=== PATIENT | male | born 1940 | race Caucasian/White ===

== ENCOUNTER 2016-11-23 08:26 | Observation (INO) | payer MEDICARE ==
[2016-11-23] VITALS (11 sets, daily range): BP systolic 157–211; BP diastolic 70–112; PULSE 72–87; RESP 18–20; TEMP 98.3–99; O2SAT 95–97
[~2016-11-23] VITALS: Ht 182.9 cm; Wt 96.0 kg
[2016-11-23] MEDS ORDERED: SODIUM CHLORIDE 0.9% FLUSH 10 ML FLUSH IVF PRN (08:45)
[2016-11-23 09:10] LABS: AUTOMATED NEUTROPHIL # 5.4 TH/MM3 (1.8-7.7); BASOPHIL % 0.5 % (0.0-2.0); EOSINOPHIL % 0.7 % (0.0-4.0); HEMATOCRIT 26.3 % (39.0-51.0); LYMPH % 12.5 % (9.0-44.0); LYMPHOCYTE # 0.8 TH/MM3 (1.0-4.8); MEAN CORPUSCULAR HEMOGLOBIN 30.3 PG (27.0-34.0); MEAN CORPUSCULAR HGB CONC 32.6 % (32.0-36.0); NEUT % 80.3 % (16.0-70.0); PLATELET COUNT 99 TH/MM3 (150-450); RED BLOOD COUNT 2.82 MIL/MM3 (4.50-5.90); RED CELL DISTRIBUTION WIDTH 14.2 % (11.6-17.2); WHITE BLOOD COUNT 6.7 TH/MM3 (4.0-11.0)
[2016-11-23 09:26] LABS: HEMO FLAGS AUTO DIFF
[2016-11-23] MEDS ORDERED: NEUR100C PO (09:29)
[2016-11-23] MEDS ORDERED: GLIM1TAB PO (09:29)
[2016-11-23] MEDS ORDERED: CARV25TA PO (09:29)
[2016-11-23] MEDS ORDERED: CALC0.5C6 PO (09:29)
[2016-11-23] MEDS ORDERED: NEUR300C PO (09:29)
[2016-11-23] MEDS ORDERED: FLUD.1 PO (09:29)
[2016-11-23] MEDS ORDERED: DOXA1TAB34 PO (09:29)
[2016-11-23] MEDS ORDERED: TORS10TA2 PO (09:29)
[2016-11-23] MEDS ORDERED: HYDR-3801 PO (09:29)
[2016-11-23 09:35] LABS: BICARBONATE 17.6 MEQ/L (21.0-32.0); MAGNESIUM 2.4 MG/DL (1.5-2.5); POTASSIUM 5.6 MEQ/L (3.5-5.1)
[2016-11-23 09:46] LABS: BANDS 2 % (0-6); EOSINOPHILS 1 % (0-4); METAMYELOCYTES 1 % (0-1); MYELOCYTES 1 % (0-0); POLYS (SEG NEUTROPHILS) 71 % (16-70); WBC DIFF SAMPLE 100
[2016-11-23 09:47] LABS: PLATELET ESTIMATE SMEAR LOW (NORMAL); PLATELET MORPHOLOGY NORMAL (NORMAL); SCAN/DIFF FINAL DIFF MANUAL
--- NOTE | 2016-11-23 10:00 | PD ---
HPI Chief Complaint: Altered Mental Status Time Seen by Provider: 08:33 Travel History International Travel<30 days: No Contact w/Intl Traveler<30days: No Traveled to known affect area: No History of Present Illness HPI 76-year-old male arrives to the ED due to unresponsive state this morning. His family found him unresponsive in bed. He was breathing on his own however did not arouse to physical stimulus. EMS reports the patient's blood glucose was 36 on scene. He received 25 mg of D50 and he improved. Upon arrival to the ER the GCS was 15. Patient did have a tremor in the right arm. He had no specific medical complaint. The family arrives later and reported that the patient attended a wedding last night and ate plenty of food. Evidently he did not take any medication prior to going to sleep. He does report a history of chronic renal insufficiency and believes his creatinine transplant between 7 and 8. He also has familiar with a history of anemia having been on Procrit and states his hemoglobin is typically between 8-9. No chest pain nausea or vomiting reported. No shortness of breath. [facility]LY [facility] Social History Tobacco Use: No (quite 40 years ago) Allergies-Medications (Allergen,Severity, Reaction): Coded Allergies: No Known Allergies (Unverified , 11/23/16) Reported Meds & Prescriptions Reported Meds & Active Scripts Active Reported Fludrocortisone (Fludrocortisone Acetate) 0.1 Mg Tab 0.1 Mg PO DAILY Hydralazine (Hydralazine HCl) 100 Mg Tab 100 Mg PO BID Take with meals Doxazosin (Doxazosin Mesylate) 4 Mg Tab 4 Mg PO DAILY Carvedilol 25 Mg Tab 25 Mg PO BID Calcitriol 0.5 Mcg Cap 0.5 Mcg PO DAILY Torsemide 10 Mg Tab 10 Mg PO DAILY Neurontin (Gabapentin) 300 Mg Cap 300 Mg PO TID Neurontin (Gabapentin) 100 Mg Cap 100 Mg PO TID Glimepiride 1 Mg Tab 1 Mg PO DAILY Take with breakfast or first main meal Review of Systems Except as stated in HPI: all other systems reviewed are Neg General / Constitutional: No: Fever, Chills Physical Exam Narrative GENERAL: 76-year-old male well-nourished moderate distress SKIN: Focused skin assessment warm/dry. HEAD: Atraumatic. Normocephalic. EYES: Pupils equal and round. No scleral icterus. No injection or drainage. ENT: No nasal bleeding or discharge. Mucous membranes pink and moist. NECK: Trachea midline. No JVD. CARDIOVASCULAR: Regular rate and rhythm. No murmur appreciated. RESPIRATORY: No accessory muscle use. Clear to auscultation. Breath sounds equal bilaterally. GASTROINTESTINAL: Abdomen soft, non-tender, nondistended. Hepatic and splenic margins not palpable. MUSCULOSKELETAL: No obvious deformities. No clubbing. No cyanosis. No edema. NEUROLOGICAL: Awake and alert. Tremor in the right upper extremity. Cranial nerves are normal. Patient has equal strength throughout. Speech memory mentation intact. PSYCHIATRIC: Appropriate mood and affect; insight and judgment normal. Data Data Last Documented VS Vital Signs Date Time Temp Pulse Resp B/P Pulse Ox O2 Delivery O2 Flow Rate FiO2 11/23/16 08:41 96 11/23/16 08:30 98.3 80 18 191/85 Vital signs reviewed Orders Electrocardiogram (11/23/16 08:33) Complete Blood Count With Diff (11/23/16 08:33) Magnesium (Mg) (11/23/16 08:33) Blood Glucose (11/23/16 09:00) Blood Glucose (11/23/16 09:30) Blood Glucose (11/23/16 08:33) Ecg Monitoring (11/23/16 08:33) Iv Access Insert/Monitor (11/23/16 08:33) Oximetry (11/23/16 08:33) NPO (11/23/16 08:33) Sodium Chloride 0.9% Flush (Ns Flush) (11/23/16 08:45) Troponin I (11/23/16 08:33) Basic Metabolic Panel (Bmp) (11/23/16 08:33) Calcium Gluconate Inj (Calcium Gluconate (11/23/16 10:15) Sodium Bicarbonate 8.4% Inj (Sodium Bica (11/23/16 10:15) Sodium Polysty Sulfate Liq (Kayexalate L (11/23/16 10:15) Labs Laboratory Tests Test 11/23/16 08:50 White Blood Count 6.7 TH/MM3 Red Blood Count 2.82 MIL/MM3 Hemoglobin 8.6 GM/DL Hematocrit 26.3 % Mean Corpuscular Volume 93.0 FL Mean Corpuscular Hemoglobin 30.3 PG Mean Corpuscular Hemoglobin 32.6 % Concent Red Cell Distribution Width 14.2 % Platelet Count 99 TH/MM3 Mean Platelet Volume 7.7 FL Neutrophils (%) (Auto) 80.3 % Lymphocytes (%) (Auto) 12.5 % Monocytes (%) (Auto) 6.0 % Eosinophils (%) (Auto) 0.7 % Basophils (%) (Auto) 0.5 % Neutrophils # (Auto) 5.4 TH/MM3 Lymphocytes # (Auto) 0.8 TH/MM3 Monocytes # (Auto) 0.4 TH/MM3 Eosinophils # (Auto) 0.0 TH/MM3 Basophils # (Auto) 0.0 TH/MM3 CBC Comment AUTO DIFF Differential Total Cells 100 Counted Neutrophils % (Manual) 71 % Band Neutrophils % 2 % Lymphocytes % 17 % Monocytes % 7 % Eosinophils % 1 % Neutrophils # (Manual) 5.0 TH/MM3 Metamyelocytes 1 % Myelocytes 1 % Differential Comment FINAL DIFF MANUAL Platelet Estimate LOW Platelet Morphology Comment NORMAL Red Cell Morphology Comment NORMAL Sodium Level 145 MEQ/L Potassium Level 5.6 MEQ/L Chloride Level 115 MEQ/L Carbon Dioxide Level 17.6 MEQ/L Anion Gap 12 MEQ/L Blood Urea Nitrogen 97 MG/DL Creatinine 9.71 MG/DL Estimat Glomerular Filtration 5 ML/MIN Rate Random Glucose 98 MG/DL Calcium Level 8.4 MG/DL Magnesium Level 2.4 MG/DL Troponin I 0.03 NG/ML [facility] Medical Decision Making Medical Screen Exam Complete: Yes Emergency Medical Condition: Yes Medical Record Reviewed: Yes Differential Diagnosis Anemia, renal failure, arrhythmia, some pulmonary overdose, hypoglycemia, seizure Narrative Course CBC & BMP Diagram 11/23/16 08:50 EKG shows sinus rate of 80 left axis deviation normal intervals, no hyperkalemic EKG change The patient has a history of renal disease and follows with Dr. Corbin of nephrology. He has never undergone dialysis. Evidently his urination has been normal. Plan patient will be admitted for cardiopulmonary monitoring as well as blood sugar monitoring. He was treated for hyperkalemia with calcium bicarbonate and Kayexalate. Discussed with Dr. Walker from the family medicine residency. Diagnosis Primary Impression: Unresponsive Additional Impressions: Hypoglycemia Hyperkalemia Admitting Information Admitting Physician Requests: Admit Sunil Linton MD Nov 23, 2016 10:00
[2016-11-23] MEDS ORDERED: SODIUM POLYSTYRENE SULFONATE SUSP 15 GM/60 ML CUP PO ONE (10:15)
[2016-11-23] MEDS ORDERED: CALCIUM GLUCONATE 10% 1 GM/10 ML VIAL SLOW IVP ONE (10:15)
[2016-11-23] MEDS ORDERED: SODIUM BICARBONATE 8.4% SOLN 50 MEQ/50 ML VIAL SLOW IVP ONE (10:15)
[2016-11-23] MEDS ORDERED: CARVEDILOL 12.5 MG TAB PO ONE (11:15)
[2016-11-23] MEDS ORDERED: hydrALAZINE HCL 100 MG TAB PO ONE (11:15)
--- NOTE | 2016-11-23 11:32 | HHI.HP ---
[facility] Service Family Medicine Primary Care Physician Randolph Renee M.D. 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 At 0730 today, neighbor came to check on him and found him lying in bed unable to wake up. He had gone to bed at 2200 the night before and felt normal, asymptomatic. No lightheadedness. No CP, SOB. He does note since this AM he has had increased urinary hesitancy but this was not a problem yesterday. On transport from via [facility], he was found to have blood sugar of 37. He became more responsive in transit and was given orange juice. BSG in ER was 100. There have been no recent changes to his medicines and he did not take any more than usual. He takes a sulfonylurea for DM but he actually took less than normal yesterday. He ate his normal amount. He was at a wedding the evening before this event and drank 3 glasses of wine (normal for him is 3 drinks per week). His only concern now that he is awake is feeling tremulous and diffusely weak. Denies any focal weakness. (Ricardo Sterling MD R1) Review of Systems Constitutional: DENIES: Fever, Chills Endocrine: DENIES: Polyuria Eyes: DENIES: Blurred vision Ears, nose, mouth, throat: DENIES: Hearing loss Respiratory: DENIES: Cough, Wheezing, Shortness of breath Cardiovascular: COMPLAINS OF: Lower Extremity Edema, DENIES: Chest pain, Palpitations, Syncope Gastrointestinal: DENIES: Abdominal pain, Constipation, Nausea, Vomiting Genitourinary: DENIES: Urinary incontinence Musculoskeletal: DENIES: Muscle aches Integumentary: DENIES: Rash Hematologic/lymphatic: DENIES: Bruising Neurologic: COMPLAINS OF: Tremor, DENIES: Headache, Localized weakness, Paresthesias, Seizures, Speech Problems (Ricardo Sterling MD R1) Past Family Social History Past Medical History Prostate DM CKD - Dr. Corbin HTN Past Surgical History TURP 2005 TURP 2013- Fistula 2016 Waiting for kidney transplant Reported Medications Reported Meds & Active Scripts Active Reported Fludrocortisone (Fludrocortisone Acetate) 0.1 Mg Tab 0.1 Mg PO DAILY Hydralazine (Hydralazine HCl) 100 Mg Tab 100 Mg PO BID Take with meals Doxazosin (Doxazosin Mesylate) 4 Mg Tab 4 Mg PO DAILY Carvedilol 25 Mg Tab 25 Mg PO BID Calcitriol 0.5 Mcg Cap 0.5 Mcg PO DAILY Torsemide 10 Mg Tab 10 Mg PO DAILY Neurontin (Gabapentin) 300 Mg Cap 300 Mg PO TID Neurontin (Gabapentin) 100 Mg Cap 100 Mg PO TID Glimepiride 1 Mg Tab 1 Mg PO DAILY Take with breakfast or first main meal (Ricardo Sterling MD R1) Allergies: Coded Allergies: No Known Allergies (Unverified , 11/23/16) Active Ordered Medications Current Medications Medications (Trade) Dose Ordered Sig/Sandhya Route Start Time Stop Time Status Last Admin (NS Flush) 2 ml UNSCH PRN IV FLUSH 11/23/16 12:00 (NS Flush) 2 ml BID IV FLUSH 11/23/16 21:00 (Ambien) 5 mg HS PRN PO 11/23/16 12:00 (Lovenox Inj) 30 mg Q24H SQ 11/23/16 12:00 (Tylenol) 650 mg Q6H PRN PO 11/23/16 12:00 (Rocaltrol) 0.5 mcg DAILY PO 11/24/16 09:00 (Coreg) 25 mg BID PO 11/23/16 21:00 (Cardura) 4 mg DAILY PO 11/24/16 09:00 (Florinef) 0.1 mg DAILY PO 11/24/16 09:00 (Neurontin) 100 mg TID PO 11/23/16 13:00 (Neurontin) 300 mg TID PO 11/23/16 13:00 (Apresoline) 100 mg BID PO 11/23/16 21:00 (Demadex) 10 mg DAILY PO 11/24/16 09:00 Family History Father: of laryngeal Mother: was healthy Social History Tobacco: quit 40 years ago, smoked from 18 to 36, 1PPD Alcohol: 2 shots of scotch couple beers per week Drugs: None (Ricardo Sterling MD R1) Physical Exam Vital Signs Vital Signs Date Time Temp Pulse Resp B/P Pulse Ox O2 Delivery O2 Flow Rate FiO2 11/23/16 08:41 96 11/23/16 08:30 98.3 80 18 191/85 95 Physical Exam GENERAL: WDWN adult white male sitting up in bed tremulous but in NAD SKIN: No rashes, ecchymoses or lesions. Cool and dry. HEAD: NC/AT EYES: PERRL. EOMI. No conjunctival injection or drainage. ENT: MMM, OP without erythema, tonsillar swelling, or exudate. NECK: Supple, no lymphadenopathy. No JVD. CARDIOVASCULAR: NRRR. Normal S1/S2. No MRG RESPIRATORY: CTAB. No crackles or wheezes. GASTROINTESTINAL: Abdomen soft, non-distended, non-tender. No hepato- splenomegaly or palpable masses. MUSCULOSKELETAL: Extremities without clubbing, cyanosis, or edema. NEUROLOGICAL: Awake and alert, oriented x3. Cranial nerves II through XII grossly intact. Strength 5/5 BUE (biceps/triceps), 4/5 in BLE (foot plantar/ dorsiflexion). Sensation to light touch intact throughout. Normal speech. Repetition intact. Laboratory Laboratory Tests Test 11/23/16 08:50 White Blood Count 6.7 Red Blood Count 2.82 Hemoglobin 8.6 Hematocrit 26.3 Mean Corpuscular Volume 93.0 Mean Corpuscular Hemoglobin 30.3 Mean Corpuscular Hemoglobin 32.6 Concent Red Cell Distribution Width 14.2 Platelet Count 99 Mean Platelet Volume 7.7 Neutrophils (%) (Auto) 80.3 Lymphocytes (%) (Auto) 12.5 Monocytes (%) (Auto) 6.0 Eosinophils (%) (Auto) 0.7 Basophils (%) (Auto) 0.5 Neutrophils # (Auto) 5.4 Lymphocytes # (Auto) 0.8 Monocytes # (Auto) 0.4 Eosinophils # (Auto) 0.0 Basophils # (Auto) 0.0 CBC Comment AUTO DIFF Differential Total Cells 100 Counted Neutrophils % (Manual) 71 Band Neutrophils % 2 Lymphocytes % 17 Monocytes % 7 Eosinophils % 1 Neutrophils # (Manual) 5.0 Metamyelocytes 1 Myelocytes 1 Differential Comment FINAL DIFF MANUAL Platelet Estimate LOW Platelet Morphology Comment NORMAL Red Cell Morphology Comment NORMAL Sodium Level 145 Potassium Level 5.6 Chloride Level 115 Carbon Dioxide Level 17.6 Anion Gap 12 Blood Urea Nitrogen 97 Creatinine 9.71 Estimat Glomerular Filtration 5 Rate Random Glucose 98 Calcium Level 8.4 Magnesium Level 2.4 Troponin I 0.03 (Ricardo Sterling MD R1) Result Diagram: 11/23/16 0850 11/23/16 0850 Assessment and Plan Assessment and Plan 76 yo male with h/o 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 I agree with assessment and management as documented and discussed with me. Grabiel Matthews is a gentleman with a complicated medical history including DM II and CKD not on dialysis admitted under observation for an episode of being found unresponsive. [facility] was called and he was found to have hypoglycemia. He reports that the day prior to admission, he ate eggs and one piece of toast for breakfast and then chicken, beef, 3 glasses of wine, and a small piece of cake at a wedding at night. Since receiving OJ and glucose recovering to normal, he reports feeling a bit better but still weak. Acute on chronic kidney disease: pt with baseline creatinine ~7.5. Will provide gentle IV hydration and monitor Is/Os closely. (Nara vEangelista MD) Problem List: (1) Unresponsive Status: Resolved Plan: Found unresponsive with blood glucose 37. By history did not eat much yesterday apart from cake and wine a wedding. Recovered after oral glucose administration. BSG on re-check ~100. No signs of syncope, cardiac etiology, neurologic etiology. K 5.6, given kayexelate Bicarb 14.7, anion gap 12; given 50 mEq NaHCO3 Initial EKG with artifact from tremulousness; NSR, normal rate, no ST-T wave changes, no changes suggestive of severe hyperkalemia Echo done Sep 2015 showed EF 57%, no significant valvular dysfunction (from [facility] , daughter brought report) - Hold home sulfonylurea - Accu-checks Q4H while awake to ensure stable blood glucose - Repeat BMP at 1700 - Based on accu-checks, will order SSI to cover (likely will need low-dose since insulin-naive) - Cardiac telemetry - If SOB occurs, will consider Echo, CXR - Diabetic education - Diabetic diet (2) Hypoglycemia Status: Resolved Plan: BSG 37, corrected to > 100 after oral glucose, likely due to low PO intake day before admission - Accu-checks Q4H until BSG stable - If needed will add SSI to cover (would need low dose) - Diabetic diet - Diabetes education (3) Hyperkalemia Status: Acute Plan: K 5.6 on admission in patient with CKD - S/p kayexelate, Ca gluconate - F/u repeat BMP at 1700 - Telemetry - Continue home diuretic (4) Acidosis, metabolic Status: Acute Plan: Likely due to renal disease, possibly hypoglycemia causing formation of ketones; not in DKA. No reason to suspect infection or lactic acidosis. - S/p 50 mEq bicarb - Repeat BMP at 1700 (5) Essential hypertension Status: Chronic Plan: BP at home runs 140-150/80-90 per patient. In ER BP significantly elevated (180-210/90-110). No signs of hypertensive emergency at this point. Likely elevated due to not taking BP meds this AM. - Given 12.5 mg Coreg (1/2 home dose) and 100 mg hydralazine PO, BP decreased somewhat 180/100 - Resumed home BP meds (Coreg, hydralazine, Prazosin) - Clonidine 0.1 mg PO Q6H PRN BP > 200/100 - Follow BP and adjust as needed (6) Type 2 diabetes mellitus Status: Chronic Plan: See above management for Unresponsive and Hypoglycemia - Continue home gabapentin for neuropathy (7) BPH (benign prostatic hyperplasia) Status: Chronic Plan: Having some urinary retention today - Continue home prazosin - Bladder scan post-void; if > [address] Vargas (8) CKD (chronic kidney disease) Status: Chronic Plan: Cr 9.71, per patient runs around 7 but sometimes higher. Equipment Tester Dr. Corbin. Currently has fistula placed L arm but not receiving dialysis. - Manage electrolytes as above - Consider nephrology consult if electrolyte abnormalities worsen - Continue home diuretic (9) FEN/PPX Status: Acute Plan: Fluids: NS @50 cc/hr x1 L Elecs: See above; monitor and adjust as needed Nutrition: Diabetic diet 2200 ADA DVT: Lovenox 30 mg SQ daily dw Dr. Walker, Dr. Evangelista (Ricardo Sterling MD R1) Problem Qualifiers (1) Type 2 diabetes mellitus: Qualified Code: E11.42 - Type 2 diabetes mellitus with diabetic polyneuropathy , without long-term current use of insulin (2) BPH (benign prostatic hyperplasia): Qualified Code: N40.1 - Benign non-nodular prostatic hyperplasia with lower urinary tract symptoms (3) CKD (chronic kidney disease): Qualified Code: N18.9 - CKD (chronic kidney disease), unspecified stage Ricardo Sterling MD R1 Nov 23, 2016 11:32 Nara Evangelista MD Nov 23, 2016 19:56
[2016-11-23] MEDS ORDERED: ZOLPIDEM TARTRATE 5 MG TAB PO PRN (12:00)
[2016-11-23] MEDS: ENOXAPARIN SODIUM 30 MG/0.3 ML SYRINGE SQ SCH (12:00)
[2016-11-23] MEDS ORDERED: ACETAMINOPHEN 325 MG TAB PO PRN (12:00)
[2016-11-23] MEDS ORDERED: SODIUM CHLORIDE 0.9% FLUSH 10 ML FLUSH IV FLUSH PRN (12:00)
[2016-11-23] MEDS: GABAPENTIN 100 MG CAP PO SCH ×2 (13:00→18:24)
[2016-11-23] MEDS: GABAPENTIN 300 MG CAP PO SCH ×2 (13:00→18:24)
[2016-11-23] MEDS ORDERED: SODIUM CHLOR 0.9% 1000 ML INJ 1,000 ML IV ONE (14:15)
[2016-11-23] MEDS ORDERED: cloNIDine HCL 0.1 MG TAB PO PRN (14:30)
[2016-11-23 19:19] LABS: BICARBONATE 18.9 MEQ/L (21.0-32.0); POTASSIUM 4.9 MEQ/L (3.5-5.1)
[2016-11-23] MEDS: SODIUM CHLORIDE 0.9% FLUSH 10 ML FLUSH IV FLUSH SCH (20:18)
[2016-11-23] MEDS: hydrALAZINE HCL 100 MG TAB PO SCH (20:19)
[2016-11-23] MEDS: CARVEDILOL 12.5 MG TAB PO SCH (20:19)
[2016-11-24 00:43] VITALS: BP 168/80; PULSE 76; RESP 18; TEMP 98.2; O2SAT 95
[2016-11-24 05:10] VITALS: BP 166/74; PULSE 65; RESP 18; TEMP 97.3; O2SAT 95
[2016-11-24 08:15] VITALS: BP 165/90; PULSE 70; RESP 19; TEMP 96.5; TEMP 96.7; O2SAT 97
[2016-11-24] MEDS ORDERED: DOXAZOSIN MESYLATE 4 MG TAB PO SCH (09:00)
[2016-11-24] MEDS ORDERED: FLUDROCORTISONE ACETATE 0.1 MG TAB PO SCH (09:00)
[2016-11-24] MEDS ORDERED: CALCITRIOL 0.25 MCG CAP PO SCH (09:00)
[2016-11-24] MEDS ORDERED: TORSEMIDE 5 MG TAB PO SCH (09:00)
[2016-11-24] MEDS: GABAPENTIN 100 MG CAP PO SCH ×2 (09:06→13:30)
[2016-11-24] MEDS: GABAPENTIN 300 MG CAP PO SCH ×2 (09:07→13:30)
[2016-11-24] MEDS: CARVEDILOL 12.5 MG TAB PO SCH (09:08)
[2016-11-24] MEDS: hydrALAZINE HCL 100 MG TAB PO SCH (09:08)
[2016-11-24] MEDS: SODIUM CHLORIDE 0.9% FLUSH 10 ML FLUSH IV FLUSH SCH (09:09)
[2016-11-24 10:23] LABS: BICARBONATE 18.6 MEQ/L (21.0-32.0); POTASSIUM 4.9 MEQ/L (3.5-5.1)
--- NOTE | 2016-11-24 11:55 | EKG ---
Date Performed: 11/23/2016 Time Performed: 09:23:35 PTAGE: 76 years EKG: Sinus rhythm MARKED LEFT AXIS DEVIATION ABNORMAL ECG NO PREVIOUS TRACING DOCTOR: Federico Rust Interpretating Date/Time 11/24/2016 11:47:25
--- NOTE | 2016-11-24 12:30 | HHI.DCPOC ---
Discharge Care Plan Diagnosis: (1) Hypoglycemia (2) Acidosis, metabolic (3) CKD (chronic kidney disease) (4) Type 2 diabetes mellitus (5) Essential hypertension (6) BPH (benign prostatic hyperplasia) Goals to Promote Your Health * To prevent worsening of your condition and complications * To maintain your health at the optimal level Directions to Meet Your Goals Take your medications as prescribed Follow your dietary instruction Follow activity as directed Keep your appointments as scheduled Take your immunizations and boosters as scheduled If your symptoms worsen call your PCP, if no PCP go to Urgent Care Center or Emergency Room Smoking is Dangerous to Your Health. Avoid second hand smoke Call the 24-hour hour crisis hotline for domestic abuse at Ricardo Sterling MD R1 Nov 24, 2016 12:30 pm
[2016-11-24 12:54] VITALS: BP 147/69; PULSE 66; RESP 18; TEMP 96.9
[2016-11-24] MEDS: ENOXAPARIN SODIUM 30 MG/0.3 ML SYRINGE SQ SCH (13:30)
--- NOTE | 2016-11-24 14:26 | HHI.FPPN ---
Subjective Remarks No acute events overnight. Feeling back to normal with no shaking or weakness. No CP/SOB. (Ricardo Sterling MD R1) Objective Vitals Vital Signs Date Time Temp Pulse Resp B/P Pulse Ox O2 Delivery O2 Flow Rate FiO2 11/24/16 12:54 96.9 66 18 147/69 11/24/16 08:15 96.7 70 19 165/90 97 11/24/16 05:10 97.3 65 18 166/74 95 11/24/16 00:43 98.2 76 18 168/80 95 11/23/16 21:06 98.4 72 18 157/71 97 11/23/16 19:29 79 11/23/16 16:51 99.0 87 20 188/87 95 11/23/16 16:21 80 18 182/84 11/23/16 14:45 77 18 185/70 I/O 11/23/16 11/23/16 11/23/16 11/24/16 11/24/16 11/24/16 07:00 15:00 23:00 07:00 15:00 23:00 Output Total 450 ml Balance -450 ml Output Urine Total 450 ml # Voids 2 5 # Bowel Movements 0 (Ricardo Sterling MD R1) Result Diagram: 11/23/16 0850 11/24/16 0827 Objective Remarks GENERAL: WDWN adult white male sitting up in bed in NAD CARDIOVASCULAR: NRRR. Normal S1/S2. No MRG RESPIRATORY: CTAB. No crackles or wheezes. GASTROINTESTINAL: Abdomen soft, non-distended, non-tender. No hepato- splenomegaly or palpable masses. MUSCULOSKELETAL: Extremities without clubbing, cyanosis, or edema. NEUROLOGICAL: Awake and alert, oriented x3. Cranial nerves II through XII grossly intact. Normal speech. 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 I agree with assessment and management as documented and discussed with me. Pt reports he is feeling well. RN daughter at bedside. Pt has worked with PT and is stable. Discharge home today. Pt instructed to d/c home sulfonylurea and monitor glucose without medication. Case discussed with his frame table operator, who advises for discharge with outpatient nephro follow up. (Nara Evangelista MD) Problem List: (1) Unresponsive Status: Resolved Plan: Found unresponsive with blood glucose 37. By history did not eat much yesterday apart from cake and wine a wedding. Recovered after oral glucose administration. BSG on re-check ~100. No signs of syncope, cardiac etiology, neurologic etiology. K 5.6, given kayexelate Bicarb 14.7, anion gap 12; given 50 mEq NaHCO3 Initial EKG with artifact from tremulousness; NSR, normal rate, no ST-T wave changes, no changes suggestive of severe hyperkalemia Echo done Sep 2015 showed EF 57%, no significant valvular dysfunction (from [facility] , daughter brought report) - D/C sulfonylurea - Hypokalemia resolved s/p Kayexalate - Diabetic diet - F/u with PCP (2) Hypoglycemia Status: Resolved Plan: BSG 37, corrected to > 100 after oral glucose, likely due to low PO intake day before admission. BSG overnight 126-210. - Discontinue sulfonylurea on discharge - Diabetic diet - F/u with PCP (3) Hyperkalemia Status: Resolved Plan: K 5.6 on admission in patient with CKD, decreased to 4.9 s/p Kayexelate - F/u with PCP, Nephrology (4) Acidosis, metabolic Status: Chronic Plan: Likely chronic due to renal disease, possibly hypoglycemia causing formation of ketones; not in DKA. No reason to suspect infection or lactic acidosis. - Discussed with patient's outpatient frame table operator, no need for acute dialysis or further inpatient treatment of renal disease - F/u with nephrology outpatient (5) Essential hypertension Status: Chronic Plan: BP initially elevated to 180s, decreased to 150 this AM (patient's baseline) - Continue home meds, f/u with PCP (6) Type 2 diabetes mellitus Status: Chronic Plan: See above management for Unresponsive and Hypoglycemia - Continue home gabapentin for neuropathy (7) BPH (benign prostatic hyperplasia) Status: Chronic Plan: Stable - Continue home prazosin (8) CKD (chronic kidney disease) Status: Chronic Plan: Cr 9.71, per patient and outpatient frame table operator this is near his baseline. Currently has fistula placed L arm but not receiving dialysis. - F/u with outpatient frame table operator (already established, see comments above) sdw Dr. Evangelista, Dr. Walker (Ricardo Sterling MD R1) Problem Qualifiers (1) Type 2 diabetes mellitus: Qualified Code: E11.42 - Type 2 diabetes mellitus with diabetic polyneuropathy , without long-term current use of insulin (2) BPH (benign prostatic hyperplasia): Qualified Code: N40.1 - Benign non-nodular prostatic hyperplasia with lower urinary tract symptoms (3) CKD (chronic kidney disease): Qualified Code: N18.9 - CKD (chronic kidney disease), unspecified stage Ricardo Sterling MD R1 Nov 24, 2016 14:26 Nara Evangelista MD Nov 24, 2016 20:12
== END 2016-11-24 13:51 | disposition home or self-care (01) ==
LOC: NEPE 08:26 → NEDA 11:01 → INTOOBSV 11:01 → NEPGCP 16:47 → N05A 22:41
PROVIDERS: ADMIT Family Medicine; ATTEND Family Medicine
DX: E11.649 Type 2 diabetes mellitus with hypoglycemia without coma (principal); R25.1 Tremor, unspecified; N18.6 End stage renal disease; D64.9 Anemia, unspecified; Z79.899 Other long term (current) drug therapy; Z79.84 Long term (current) use of oral hypoglycemic drugs; E87.5 Hyperkalemia; I12.0 Hypertensive chronic kidney disease with stage 5 chronic kidney disease or end stage renal disease; R39.11 Hesitancy of micturition; Z76.82 Awaiting organ transplant status; R33.9 Retention of urine, unspecified; E11.42 Type 2 diabetes mellitus with diabetic polyneuropathy; N40.1 Benign prostatic hyperplasia with lower urinary tract symptoms; R94.31 Abnormal electrocardiogram [ECG] [EKG]
CPT/HCPCS: 80048; 82948; 83735; 84484; 85007; 85027; 93005; 96374; 96375; 97162; 99285; G0378; G8987; G8988; J0610; J1650; J7030

== ENCOUNTER 2018-02-17 00:24 | Inpatient (IN) ==
[2018-02-17] MEDS ORDERED: Temazepam 15 MG Capsule PO PRN (01:28)
[2018-02-17] MEDS ORDERED: Bisacodyl 10 MG Supp RECTAL PRN (01:28)
[2018-02-17] MEDS ORDERED: Dextrose 50% in Water 50 ML Vial IV.PUSH PRN ×2 (01:31→16:02)
[2018-02-17 03:14] LABS: Eos % (Auto) 0.7 % (0.0-4.0); Hematocrit 28.7 % (39.0-51.0); Hemoglobin 9.9 gm/dL (13.0-17.0); Lymph # (Auto) 1.2 th/mm3 (1.0-4.8); Lymph % (Auto) 30.8 % (9.0-44.0); Mean Corpuscular HGB Conc 34.4 % (32.0-36.0); Mean Corpuscular Hemoglobin 32.1 pg (27.0-34.0); Mean Corpuscular Volume 93.4 fL (80.0-100.0); Mean Platelet Volume 8.2 fL (7.0-11.0); Mono # (Auto) 0.3 th/mm3 (0.0-0.9); Mono % (Auto) 7.1 % (0.0-8.0); Neut # (Auto) 2.3 th/mm3 (1.8-7.7); Neut % (Auto) 60.4 % (16.0-70.0); Platelet Count 96 th/mm3 (150-450); Red Blood Count 3.08 mil/mm3 (4.50-5.90); Red Cell Distribution Width 13.7 % (11.6-17.2); White Blood Count 3.8 th/mm3 (4.0-11.0)
[2018-02-17 03:29] LABS: Activated Partial Thrombo Time 26.7 sec (24.3-30.1); INR 1.1 Ratio; Prothrombin Time 10.9 sec (9.8-11.6)
[2018-02-17] MEDS ORDERED: Chlorhexidine Gluconate 2% 1 Pack (2 Cloths) TOPICAL SCH (03:30)
[2018-02-17] MEDS ORDERED: Metoprolol Tartrate 25 MG Tablet PO SCH (03:30)
[2018-02-17 03:36] LABS: Alanine Aminotransferase 23 U/L (12-78); Anion Gap 8 meq/L (5-15); Aspartate Aminotransferase 9 U/L (15-37); Blood Urea Nitrogen 34 mg/dL (7-18); Calcium 8.3 mg/dL (8.5-10.1); Carbon Dioxide 32.6 meq/L (21.0-32.0); Chloride 101 meq/L (98-107); Glomerular Filtration Rate 11 mL/min (>89); Glucose,Random 93 mg/dL (74-106); Potassium 5.1 meq/L (3.5-5.1); Sodium 142 meq/L (136-145)
[2018-02-17 03:37] LABS: Alkaline Phosphatase 58 U/L (45-117); Total Protein 7.1 g/dL (6.4-8.2)
[2018-02-17] MEDS ORDERED: ANTITHYMOCYTE IG IV.SIG PRN (03:38)
[2018-02-17] MEDS ORDERED: SODIUM CHLOR 0.9% IV.SIG PRN (03:38)
[2018-02-17] MEDS ORDERED: [UNRECOGNIZED DRUG - OTHER] IV.PUSH PRN (03:41)
[2018-02-17] MEDS ORDERED: ceFAZolin 2 GM IV; once IV.SIG PRN (03:42)
[2018-02-17] MEDS ORDERED: Sodium Chlor 0.9% Inj 500 ML IV.SIG SCH (04:00)
[2018-02-17 04:07] LABS: Platelet Morphology Normal (Normal)
[2018-02-17 04:27] LABS: Bilirubin,Urine Negative (Negative); Clarity,Urine Clear (Clear); Color,Urine Straw (Yellw/Straw); Glucose,Urine (UA) 500 or Greater mg/dL (Negative); Leukocyte Esterase,Urine Negative (Negative); Mucus,Urine Few /lpf (Occasional); Nitrite,Urine Negative (Negative); Specific Gravity,Urine 1.002 (1.002-1.035)
[2018-02-17] MEDS ORDERED: Heparin - SQ 10,000 UNITS/ML Vial SQ ONE ×2 (07:26→08:27)
[2018-02-17] MEDS ORDERED: Furosemide Inj 10 ML ONE (07:26)
[2018-02-17] MEDS ORDERED: MethylPREDNISolone Sod Succinate Inj 125 MG/2 ML Vial ONE ×4 (07:26→10:29)
--- NOTE | 2018-02-17 08:00 | P.CONTS ---
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 Was on vacation in [place] and returned home as he was potentially offered a donor kidney. Denies any recent acute health issues. Started last year (2016). Still makes normal amounts of urine. Last HD was yesterday. Review of Systems All other systems reviewed negative except as stated in HPI makes normal amounts of urine. Denies any acute issues PMFSH - History History Provided By: Patient - Medical History Medical History: Medical History (Last Updated 02/17/18 @ 07:56 by Agapito Menchaca MD) Diabetes mellitus (Chronic) Adrenal hyperplasia Arteriovenous fistula Clay's cyst of knee Benign prostatic hyperplasia Hyperparathyroidism Hypertension Melanoma Neuropathy Pneumonia Skin cancer - Surgical History Surgical History: Surgical History (Last Updated 02/17/18 @ 07:56 by Agapito Menchaca MD) History of tonsillectomy S/P TURP - Tobacco History Smoking Status: Former smoker (1 PPD x 10 yrs. quit 45 years ago) - Alcohol History How Often Do You Have a Drink Containing Alcohol: 2 to 4 times a month (about 2 glasses of scotch per week) Medications and Allergies Active Medications: Active Medications Al Hydroxide/Mg Hydroxide (Milk Of Magnbolivar Liq) 30 ml PO Q12H PRN PRN Reason: Mild Constipation Bisacodyl (Dulcolax Supp) 10 mg RECTAL DAILY PRN PRN Reason: SEVERE CONSITIPATION Carvedilol (Coreg) 25 mg PO BID [place]ANO Chlorhexidine Gluconate (Chlorhexidine 2% Cloth) 3 pack TOPICAL PRESERVATIVE FILLER MACHINE OPERATOR [place]ANO Stop: 02/20/18 03:20 Dextrose (D50w Vial) 50 ml IV.PUSH UNSCH PRN PRN Reason: PER HYPOGLYCEMIA PROTOCOL Glucagon (Glucagon Inj) 1 mg OTHER PRN PRN PRN Reason: for Hypoglycemia Protocol Sodium Chloride (Ns Inj) 1,000 mls @ 100 mls/hr IV.CONT .Q10H MAR[place] Lactated Ringer's (Lr 1000 Ml Inj) 1,000 mls @ 30 mls/hr IV.SIG .Q24H [place] Stop: 02/20/18 03:20 Last Admin: 02/17/18 04:45 Dose: Not Given Sodium Chloride (Ns Inj) 500 mls @ 30 mls/hr IV.SIG .Q10H [facility] Stop: 02/20/18 03:20 Lymphocyte Immune Globulin 125 (mg/ Sodium Chloride) 250 mls @ 41.667 mls/hr IV.SIG UNSCH X1 PRN PRN Reason: MIX UPON CALL SMOKE INSPECTOR Stop: 02/17/18 12:00 Cefazolin Sodium/Dextrose (Ancef 2 Gm Premix Inj) 2 gm in 50 mls @ 100 mls/hr IV.SIG PRESERVATIVE FILLER MACHINE OPERATOR PRN PRN Reason: 60 MIN PRIOR TO INCISION Stop: 02/17/18 18:00 Insulin Aspart (Novolog Insulin Suppl Scale Inj) 0 unit SQ ACHS [facility]; Protocol Lactulose (Lactulose Liq) 30 ml PO DAILY PRN PRN Reason: SEVERE CONSITIPATION Methylprednisolone Sodium Succinate (Solumedrol Inj) 500 mg IV.PUSH PRESERVATIVE FILLER MACHINE OPERATOR PRN PRN Reason: PRIOR TO IMPLANTATION Stop: 02/17/18 18:00 Mycophenolate Mofetil (Cellcept) 1,000 mg PO UNSCH X1 PRN PRN Reason: ON ADMISSION Stop: 02/17/18 12:00 Last Admin: 02/17/18 04:30 Dose: 1,000 mg Povidone Iodine (Betadine 5% Antisepsis Kit) 1 applicatio EACH NARE PRESERVATIVE FILLER MACHINE OPERATOR [facility] Stop: 02/20/18 03:20 Last Admin: 02/17/18 04:47 Dose: 1 applicatio Sennosides (Senokot) 17.2 mg PO Q12H PRN PRN Reason: Moderate Constipation Temazepam (Restoril) 15 mg PO HS PRN PRN Reason: INSOMNIA Allergies Allergy/AdvReac Type Severity Reaction Status Date / Time No Known Allergies Unknown Uncoded 01/14/18 13:19 Home Medications Medication Instructions Recorded Confirmed Type carvedilol [Coreg] 25 mg PO BID 02/17/18 02/17/18 History gabapentin 400 mg PO TID 02/17/18 02/17/18 History sevelamer carbonate [Renvela] 800 mg PO QID 02/17/18 02/17/18 History Physical Exam Vital signs: Vital Signs 02/17/18 01:00 02/17/18 04:00 Temperature 97.7 F Pulse Rate 62 63 Respiratory Rate 18 18 Blood Pressure 187/89 H 172/84 H Pulse Oximetry 98 Intake & Output 02/16/18 02/17/18 02/17/18 18:59 06:59 18:59 Intake Total 0 / 0 Output Total 400 / 400 Balance -400 / -400 Weight 84 kg Intake: Oral 0 / 0 Output: Urine 400 / 400 Stool 0 / 0 Other: Date of Last Bowel Movement 02/16/18 # Bowel Movements 0 Weight On Admission 84 kg - Constitutional no acute distress - Routine HEENT Exam Head: Present: normocephalic, atraumatic Eye: Present: EOMI - Routine Neck Exam Present: supple, full ROM - Routine Respiratory Exam Present: CTA bilaterally - Routine Cardiovascular Exam Present: RRR, S1, S2 - Routine Abdominal Exam Present: soft, normoactive bowel sounds - Routine Extremities Exam Present: full ROM, pulses intact, AV fistula (Left arm) Assessment and Plan - Assessment (1) HTN (hypertension) Code(s): I10 - Essential (primary) hypertension Status: Acute - Plan Patient with 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 CMV+/EBV+. Here for possible donor kidney transplant
[2018-02-17] MEDS ORDERED: Sodium Polystyrene Sulfonate/Sorbitol Liq 15 GM/60 ML UDC PO ONE (08:07)
[2018-02-17] MEDS ORDERED: Cisatracurium Inj 20 MG/10 ML Vial ONE ×2 (08:37→11:48)
--- NOTE | 2018-02-17 08:49 | P.HP ---
History of Present Illness Primary Care Physician: Randolph Renee MD Chief Complaint: Renal transplant. History of Present Illness: Mr. Matthews is a pleasant 77 year old male with a history of hypertension, diabetes mellitus and ESRD on MWF HD who flew back to [place] renal transplant surgery. He was vacationing in [facility] and received a call during his dialysis that a match was found. He subsequently drove to [place], [place] and took a flight back to [place]. At the time of this interview, patient reports no chest pain, shortness of breath, fever, chills. No cough, abdominal pain. No changes in bowel or bladder habits. He remains in good spirit. - Diagnosis (1) ESRD (end stage renal disease) (2) HTN (hypertension) (3) Diabetes mellitus - Inpatient Certification If this patient has been admitted as an Inpatient: I certify that the inpatient services were ordered in accordance with Medicare regulations governing the order. This includes certification that hospital inpatient services are reasonable and necessary and in the case of services not specified as inpatient-only under 42 CFR 419.22(n), that they are appropriately provided as inpatient services in accordance to with the 2-midnight benchmark under 43 CFR 412.3(e) Estimated Total Length of Stay (Days): 3 Plans for Post Hospital Care: Not yet determined PMF - History History Provided By: Patient - Medical History Medical History: Medical History (Last Updated 02/17/18 @ 07:56 by Agapito Menchaca MD) Diabetes mellitus (Chronic) Adrenal hyperplasia Arteriovenous fistula Clay's cyst of knee Benign prostatic hyperplasia Hyperparathyroidism Hypertension Melanoma Neuropathy Pneumonia Skin cancer - Surgical History Surgical History: Surgical History (Last Updated 02/17/18 @ 07:56 by Agapito Menchaca MD) History of tonsillectomy S/P TURP - Family History Family History: Family History (Last Updated 02/17/18 @ 08:44 by Arvind Rodriguez DO) Father Family history of cancer - Tobacco History Smoking Status: Former smoker (1 PPD x 10 yrs. quit 45 years ago) - Alcohol History How Often Do You Have a Drink Containing Alcohol: 2 to 4 times a month (about 2 glasses of scotch per week) Medications and Allergies Active Medications: Active Medications Al Hydroxide/Mg Hydroxide (Milk Of Magnesia Liq) 30 ml PO Q12H PRN PRN Reason: Mild Constipation Bisacodyl (Dulcolax Supp) 10 mg RECTAL DAILY PRN PRN Reason: SEVERE CONSITIPATION Carvedilol (Coreg) 25 mg PO BID [facility] Chlorhexidine Gluconate (Chlorhexidine 2% Cloth) 3 pack TOPICAL HOUSEKEEPER HOME [facility] Stop: 02/20/18 03:20 Dextrose (D50w Vial) 50 ml IV.PUSH UNSCH PRN PRN Reason: PER HYPOGLYCEMIA PROTOCOL Glucagon (Glucagon Inj) 1 mg OTHER PRN PRN PRN Reason: for Hypoglycemia Protocol Sodium Chloride (Ns Inj) 1,000 mls @ 100 mls/hr IV.CONT .Q10H [facility] Lactated Ringer's (Lr 1000 Ml Inj) 1,000 mls @ 30 mls/hr IV.SIG .Q24H [facility] Stop: 02/20/18 03:20 Last Admin: 02/17/18 04:45 Dose: Not Given Sodium Chloride (Ns Inj) 500 mls @ 30 mls/hr IV.SIG .Q10H [facility] Stop: 02/20/18 03:20 Lymphocyte Immune Globulin 125 (mg/ Sodium Chloride) 250 mls @ 41.667 mls/hr IV.SIG UNSCH X1 PRN PRN Reason: MIX UPON CALL CITY SOLICITOR Stop: 02/17/18 12:00 Cefazolin Sodium/Dextrose (Ancef 2 Gm Premix Inj) 2 gm in 50 mls @ 100 mls/hr IV.SIG HOUSEKEEPER HOME PRN PRN Reason: 60 MIN PRIOR TO INCISION Stop: 02/17/18 18:00 Insulin Aspart (Novolog Insulin Suppl Scale Inj) 0 unit SQ ACHS [facility]; Protocol Lactulose (Lactulose Liq) 30 ml PO DAILY PRN PRN Reason: SEVERE CONSITIPATION Methylprednisolone Sodium Succinate (Solumedrol Inj) 500 mg IV.PUSH HOUSEKEEPER HOME PRN PRN Reason: PRIOR TO IMPLANTATION Stop: 02/17/18 18:00 Mycophenolate Mofetil (Cellcept) 1,000 mg PO UNSCH X1 PRN PRN Reason: ON ADMISSION Stop: 02/17/18 12:00 Last Admin: 02/17/18 04:30 Dose: 1,000 mg Povidone Iodine (Betadine 5% Antisepsis Kit) 1 applicatio EACH NARE HOUSEKEEPER HOME [facility] Stop: 02/20/18 03:20 Last Admin: 07/05/18 04:47 Dose: 1 applicatio Sennosides (Senokot) 17.2 mg PO Q12H PRN PRN Reason: Moderate Constipation Temazepam (Restoril) 15 mg PO HS PRN PRN Reason: INSOMNIA Allergies Allergy/AdvReac Type Severity Reaction Status Date / Time No Known Allergies Unknown Uncoded 01/14/18 13:19 Home Medications Medication Instructions Recorded Confirmed Type carvedilol [Coreg] 25 mg PO BID 02/17/18 02/17/18 History gabapentin 400 mg PO TID 02/17/18 02/17/18 History sevelamer carbonate [Renvela] 800 mg PO QID 02/17/18 02/17/18 History Exam Vital signs: Vital Signs 02/17/18 01:00 02/17/18 04:00 Temperature 97.7 F Pulse Rate 62 63 Respiratory Rate 18 18 Blood Pressure 187/89 H 172/84 H Pulse Oximetry 98 Intake & Output 02/16/18 02/17/18 02/17/18 18:59 06:59 18:59 Intake Total 0 / 0 Output Total 400 / 400 Balance -400 / -400 Weight 84 kg Intake: Oral 0 / 0 Output: Urine 400 / 400 Stool 0 / 0 Other: Date of Last Bowel Movement 02/16/18 # Bowel Movements 0 Weight On Admission 84 kg Narrative: GENERAL: This is a well-nourished, well-developed patient, in no apparent distress. SKIN: No rashes, ecchymoses or lesions. Warm and dry. HEAD: Atraumatic. Normocephalic. No temporal or scalp tenderness. EYES: Pupils equal round and reactive. No injection or drainage. ENT: Nose without bleeding, purulent drainage or septal hematoma. Airway patent. NECK: Trachea midline. No lymphadenopathy. Supple, nontender, no meningeal signs. CARDIOVASCULAR: Regular rate and rhythm without murmurs, gallops, or rubs. No JVD. RESPIRATORY: Clear to auscultation. Breath sounds equal bilaterally. No wheezes , rales, or rhonchi. GASTROINTESTINAL: Abdomen soft, non-tender, nondistended. No guarding. MUSCULOSKELETAL: Extremities without clubbing, cyanosis, or edema. NEUROLOGICAL: Awake and alert. Cranial nerves II through XII intact. No focal neurological deficits. Normal speech. Results - Labs CBC & Chem 7: 02/17/18 02:28 02/17/18 02:28 Labs: Laboratory Results - last 24 hr 02/17/18 02/17/18 02/17/18 02:10 02:10 02:28 WBC 3.8 L RBC 3.08 L Hgb 9.9 L Hct 28.7 L MCV 93.4 MCH 32.1 MCHC 34.4 RDW 13.7 Plt Count 96 L MPV 8.2 Prelim Diff (Auto) Slide review pending Neut % (Auto) 60.4 Lymph % (Auto) 30.8 Harrison % (Auto) 7.1 Eos % (Auto) 0.7 Baso % (Auto) 1.0 Neut # (Auto) 2.3 Lymph # (Auto) 1.2 Harrison # (Auto) 0.3 Eos # (Auto) 0.0 Baso # (Auto) 0.0 WBC Differential . Diff Scan Auto diff confirmed Differential Comment . Platelet Estimate Low L Platelet Morphology Normal PT INR APTT Sodium Potassium Chloride Carbon Dioxide Anion Gap BUN Creatinine Estimated GFR Random Glucose Calcium Total Bilirubin AST ALT Alkaline Phosphatase Total Protein Albumin Urine Color Urine Clarity Urine pH Ur Specific Cran[place] Urine Protein Urine Glucose (UA) Urine Ketones Urine Occult Blood Urine Nitrate Urine Bilirubin Urine Urobilinogen Ur Leukocyte Esterase Urine RBC Urine WBC Urine Mucus Blood Type O Negative Blood Type Confirm Blood Type Recheck Not needed Antibody Screen Negative MTS Gel Crossmatch See Detail See Detail Bld Prod Order Comment Cancelled 02/17/18 02/17/18 02/17/18 02:28 02:28 03:00 WBC RBC Hgb Hct MCV MCH MCHC RDW Plt Count MPV Prelim Diff (Auto) Neut % (Auto) Lymph % (Auto) Harrison % (Auto) Eos % (Auto) Baso % (Auto) Neut # (Auto) Lymph # (Auto) Harrison # (Auto) Eos # (Auto) Baso # (Auto) WBC Differential Diff Scan Differential Comment Platelet Estimate Platelet Morphology PT 10.9 INR 1.1 APTT 26.7 Sodium 142 Potassium 5.1 Chloride 101 Carbon Dioxide 32.6 H Anion Gap 8 BUN 34 H Creatinine 5.34 H Estimated GFR 11 L Random Glucose 93 Calcium 8.3 L Total Bilirubin 0.4 AST 9 L ALT 23 Alkaline Phosphatase 58 Total Protein 7.1 Albumin 4.0 Urine Color Straw Urine Clarity Clear Urine pH 8.0 Ur Specific [place] 1.002 Urine Protein 100 H Urine Glucose (UA) 500 or greater Urine Ketones Negative Urine Occult Blood Negative Urine Nitrate Negative Urine Bilirubin Negative Urine Urobilinogen Less than 2 Ur Leukocyte Esterase Negative Urine RBC 1 Urine WBC 1 Urine Mucus Few H Blood Type Blood Type Confirm Blood Type Recheck Antibody Screen MTS Gel Crossmatch Bld Prod Order Comment 02/17/18 03:48 WBC RBC Hgb Hct MCV MCH MCHC RDW Plt Count MPV Prelim Diff (Auto) Neut % (Auto) Lymph % (Auto) Harrison % (Auto) Eos % (Auto) Baso % (Auto) Neut # (Auto) Lymph # (Auto) Harrison # (Auto) Eos # (Auto) Baso # (Auto) WBC Differential Diff Scan Differential Comment Platelet Estimate Platelet Morphology PT INR APTT Sodium Potassium Chloride Carbon Dioxide Anion Gap BUN Creatinine Estimated GFR Random Glucose Calcium Total Bilirubin AST ALT Alkaline Phosphatase Total Protein Albumin Urine Color Urine Clarity Urine pH Ur Specific [place] Urine Protein Urine Glucose (UA) Urine Ketones Urine Occult Blood Urine Nitrate Urine Bilirubin Urine Urobilinogen Ur Leukocyte Esterase Urine RBC Urine WBC Urine Mucus Blood Type Blood Type Confirm O Negative Blood Type Recheck Antibody Screen MTS Gel Crossmatch Bld Prod Order Comment Caprini VTE Risk Assessment Caprini VTE Risk Assessment: No/Low Risk (score <= 1) Caprini Risk Assessment Model: Point Value = 1 Point Value = 2 Point Value = 3 Point Value = 5 Age 41-60 Minor surgery BMI > 25 kg/m2 Swollen legs Varicose veins or History of unexplained or recurrent spontaneous Oral contraceptives or hormone replacement Sepsis (< 1 month) Serious lung disease, including pneumonia (< 1 month) Abnormal pulmonary function Acute myocardial infarction Congestive heart failure (< 1 month) History of inflammatory bowel disease Medical patient at bed rest Age 61-74 Arthroscopic surgery Major open surgery (> 45 min) Laparoscopic surgery (> 45 min) Malignancy Confined to bed (> 72 hours) Immobilizing plaster cast Central venous access Age >= 75 History of VTE Family history of VTE Factor V Leiden Prothrombin [id number] Lupus anticoagulant Anticardiolipin antibodies Elevated serum homocysteine Heparin-induced thrombocytopenia Other congenital or acquired thrombophilia Stroke (< 1 month) Elective arthroplasty Hip, pelvis, or leg fracture Acute spinal cord injury (< 1 month) Prophylaxis Regimen: Total Risk Factor Score Risk Level Prophylaxis Regimen 0-1 Low Early ambulation 2 Moderate Order ONE of the following: *Sequential Compression Device (SCD) *Heparin 5000 units SQ BID 3-4 Higher Order ONE of the following medications: *Heparin 5000 units SQ TID *Enoxaparin/Lovenox 40 mg SQ daily (WT < 150 kg, CrCl > 30 mL/min) *Enoxaparin/Lovenox 30 mg SQ daily (WT < 150 kg, CrCl > 10-29 mL/min) *Enoxaparin/Lovenox 30 mg SQ BID (WT < 150 kg, CrCl > 30 mL/min) AND/OR *Sequential Compression Device (SCD) 5 or more Highest Order ONE of the following medications: *Heparin 5000 units SQ TID (Preferred with Epidurals) *Enoxaparin/Lovenox 40 mg SQ daily (WT < 150 kg, CrCl > 30 mL/min) *Enoxaparin/Lovenox 30 mg SQ daily (WT < 150 kg, CrCl > 10-29 mL/min) *Enoxaparin/Lovenox 30 mg SQ BID (WT < 150 kg, CrCl > 30 mL/min) AND *Sequential Compression Device (SCD) Assessment and Plan - Assessment (1) ESRD (end stage renal disease) Code(s): N18.6 - End stage renal disease Status: Acute (2) HTN (hypertension) Code(s): I10 - Essential (primary) hypertension Status: Acute (3) Diabetes mellitus Code(s): E11.9 - Type 2 diabetes mellitus without complications Status: Chronic - Plan Mr. Matthews is a pleasant 77 year old male with a history of DM, HTN, ESRD on MWF hemodialysis who took a flight to come back to [place] after he was informed for matched kidney for transplant. At the time of this interview, he is hemodynamically stable and remains in good spirit. End stage Renal disease -On MWF hemodialysis. Dr. 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 Has been on dialysis for one year. Diabetes mellitus - Controlled with lifestyle modifications. - Will keep him on sliding scale insulin. Goal BG 140-180 in the hospital. Hypertension - Currently takes Carvedilol 25mg BID. Full code. Ambulation. Pharmacological DVT prophylaxis per Transplant surgeon.
[2018-02-17] MEDS: Carvedilol 12.5 MG Tablet PO SCH ×2 (09:00→21:17)
--- NOTE | 2018-02-17 09:12 | XR ---
EXAM DATE: 02/17/2018 9:08 AM EDT AGE/SEX: 77 years / Male INDICATIONS: Evaluate for pneumonia, pneumothorax, or communicable disease. Pre op for kidney transp lant. CLINICAL DATA: This is the patient's initial encounter. Patient reports that signs and symptoms have been present for 1 day and indicates a pain score of 0/10. MEDICAL/SURGICAL HISTORY: Hypertension. Diabetes. adrenal hyperplasia. Clay's cyst knee. Maryjo riovenous fistula. Hyperparathyroid. Neuropathy. Tonsillectomy. TURP. COMPARISON: No prior exams available for comparison. FINDINGS: PA and lateral views of the chest demonstrate the lungs to be symmetrically aerated without evidence of mass, infiltrate or effusion. The cardiomediastinal contours are unremarkable. Osseous structures are intact. There are some vascular stents along the left upper extremity. CONCLUSION: No acute intrathoracic disease. Electronically signed by: Jaylon Cole MD 02/17/2018 9:11 AM EDT
[2018-02-17 11:48] LABS: ABG Base Excess 3.3 mmol/L (-2-2); ABG PCO2 46 mmHg (38-42); ABG PO2 288 mmHG (61-120)
[2018-02-17] MEDS ORDERED: Phenylephrine/NS 1000 MCG/10ML Syringe IV.PUSH ONE (12:00)
[2018-02-17] MEDS ORDERED: Lidocaine PF 1% Inj 5 ML Syringe INFILTRATN ONE (12:00)
[2018-02-17] MEDS ORDERED: Labetalol HCl Inj 100 MG/20 ML Vial IV.CONT ONE (12:00)
[2018-02-17 13:14] LABS: Hematocrit 27.8 % (39.0-51.0); Hemoglobin 9.3 gm/dL (13.0-17.0); Mean Corpuscular HGB Conc 33.6 % (32.0-36.0); Mean Corpuscular Hemoglobin 31.6 pg (27.0-34.0); Platelet Count 77 th/mm3 (150-450); Red Blood Count 2.96 mil/mm3 (4.50-5.90); Red Cell Distribution Width 13.7 % (11.6-17.2); White Blood Count 1.5 th/mm3 (4.0-11.0)
[2018-02-17] MEDS: Insulin NovoLOG Aspart Correctional Sugar Inj SQ SCH (13:52)
[2018-02-17 14:41] LABS: ABG Base Excess 0.7 mmol/L (-2-2); ABG PCO2 39 mmHg (38-42); ABG PO2 186 mmHG (61-120)
[2018-02-17 14:45] LABS: ABG Base Excess 0.1 mmol/L (-2-2); ABG PCO2 37 mmHg (38-42); ABG PO2 123 mmHG (61-120)
[2018-02-17 14:59] LABS: Hematocrit 25.5 % (39.0-51.0); Hemoglobin 8.7 gm/dL (13.0-17.0)
--- NOTE | 2018-02-17 15:24 | XR ---
EXAM DATE: 02/17/2018 3:09 PM EDT AGE/SEX: 77 years / Male INDICATIONS: Foreign body, done in operating room. CLINICAL DATA: This is the patient's initial encounter. Patient reports that signs and symptoms have been present for 1 day and indicates a pain score of Nonresponsive. MEDICAL/SURGICAL HISTORY: . Hypertension. Diabetes. adrenal hyperplasia. Clay's cyst knee. Ar teriovenous fistula. Hyperparathyroid. Neuropathy. . Tonsillectomy. TURP. COMPARISON: No prior exams available for comparison. FINDINGS: Examination of the abdomen demonstrates multiple surgical clips in the right lower quadrant. There is a double-J stent in place on the right side. The bowel gas pattern is within normal limits. There ar e degenerative changes of lumbar spine.. CONCLUSION: Multiple surgical clips in the right lower quadrant. Double-J stent on the right side. Electronically signed by: Jaylon Cole MD 02/17/2018 3:23 PM EDT
[2018-02-17] MEDS ORDERED: Naloxone Inj 0.4 MG/ML Vial IV.PUSH PRN ×2 (16:02→20:58)
[2018-02-17] MEDS ORDERED: fentaNYL Citrate Inj 100 MCG/2 ML Ampul ONE (16:10)
[2018-02-17 16:32] LABS: Baso % (Auto) 0.3 % (0.0-2.0); Hematocrit 26.5 % (39.0-51.0); Hemoglobin 9.1 gm/dL (13.0-17.0); Lymph % (Auto) 0.8 % (9.0-44.0); Mean Corpuscular HGB Conc 34.3 % (32.0-36.0); Mean Corpuscular Hemoglobin 32.8 pg (27.0-34.0); Mean Corpuscular Volume 95.5 fL (80.0-100.0); Mean Platelet Volume 7.7 fL (7.0-11.0); Mono # (Auto) 0.1 th/mm3 (0.0-0.9); Mono % (Auto) 2.5 % (0.0-8.0); Neut # (Auto) 4.8 th/mm3 (1.8-7.7); Neut % (Auto) 96.4 % (16.0-70.0); Platelet Count 66 th/mm3 (150-450); Red Blood Count 2.78 mil/mm3 (4.50-5.90); Red Cell Distribution Width 13.9 % (11.6-17.2)
--- NOTE | 2018-02-17 16:43 | XR ---
EXAM DATE: 02/17/2018 4:40 PM EDT AGE/SEX: 77 years / Male INDICATIONS: Central line placement. Right sided chest pain. CLINICAL DATA: This is the patient's initial encounter. Patient reports that signs and symptoms have been present for 1 day and indicates a pain score of 3/10. MEDICAL/SURGICAL HISTORY: Hypertension. Diabetes. Arteriovenous fistula. None. COMPARISON: [facility], CHEST 2V PA&LAT, 02/17/2018. . FINDINGS: Interval placement of right IJ central line with tip in the region of the central SVC. Lungs are frankie r without pneumothorax. Cardiomediastinal contours are stable given rotation. Left upper extremity an d subclavian stents again noted. Remainder of the exam is unchanged. CONCLUSION: 1. Left IJ central line overlying the central SVC without pneumothorax. Electronically signed by: Jonnathan Cheng MD 02/17/2018 4:41 PM EDT
[2018-02-17] MEDS ORDERED: Insulin NovoLIN Regular Correctional Sugar Inj SQ SCH (17:00)
--- NOTE | 2018-02-17 17:00 | P.OP ---
Date of procedure: 02/17/18 Procedure: 1. Backtable complex preparation of right donor kidney, with stapling of vena cava x 2 2. Right donor kidney transplant to right iliac fossa 3. 12 x 6 fr double J ureteral stent placement Surgeon: Agapito Menchaca MD Lumber Tailer: Sudhir Yancey Estimated blood loss (mL): 400 IV fluids (mL): 3,000 Urine output (mL): 800 Pathology: none sent Operation and Findings: Cold ischemic time: 13 hours 11 minutes Warm ischemic time: 43 minutes Intra-Op Findings: Soft iliac arteries and distal aorta, with good flow into and out of renal allograft after reperfusion Informed consent was obtained from the patient prior to surgery and the ABO was reviewed via primary source for the recipient and donor prior to surgery today. Recipient was brought into the OR and safely placed under general endotracheal anesthesia after the debriefing was performed. The ABO verification form was in the room with the patient and the renal allograft. The [employer] file was checked and the donor ABO verified X 2 and recorded onto the ABO form with the Candidate ABO verified X 2 and recorded on the ABO verification form. The candidate's name was seen on the match run in [employer]. As the anesthesia service was preparing the patient, we prepared the renal allograft on the back table by removing all extraneous connective tissue. There was a single artery, vein and ureter of sufficient length. Since this was a right kidney, the cephalad and caudal cava was stapled. The kidney was stored in sterile ice with preservative solution and replaced in sterile container with top and in a sterile bowel bag. The patient had a Vargas catheter placed sterilely, and the abdomen was prepped and draped in the usual sterile fashion. We then did our standard surgical time out, reviewing the patient, allergies, antibiotics, operation to be performed, immunosuppression medications and ABO of the donor and recipient. All agreed and we proceeded. The anesthesia service acknowledged the administration of the IV Solumedrol 250 mg and Thymoglobulin infusion. We then made a right quadrant oblique incision from an area about two centimeters medial to the anterior iliac spine to the pubic symphysis. We were able to go through the skin, subcutaneous tissue, fascia, and into the right retroperitoneal space. We kept the cord structures mobilized out of harm's way. We spared the epigastric vessels. We had excellent exposure of the common and external iliac artery and vein and carefully dissected these free of the nerve, keeping this lateral and out of harm's way. The artery was soft with no obvious significant atherosclerosis, throughout its entire length from the distal aorta to the distal external iliac. The vein was relatively deep but normal otherwise. We gave the patient 2,000 units of intravenous heparin, and allowed this to circulate for three minutes. We then used a Satinsky clamp on the iliac vein and opened the vein with the 11-blade, Prabhakar scissors, and Hepflush. We anastomosed the donor renal vein to the recipient right external iliac vein using 6-0 Prolene in our standard technique. When this venous anastomosis was completed, we went ahead and placed a Satinsky vascular clamp on the right external iliac artery, then opened into the iliac artery with the 11-blade. The 4 arterial punch was used x four, so we had a nice opening of the anterior artery wall to accept the renal artery. Then we used 6-0 Prolene, placing a cephalad and caudal stitch, and then we were able to anastomose the arteries under direct visualization. When the arterial anastomosis was complete and tied , we went ahead and placed gentle vascular bull-dog clamps on the renal artery and renal vein proper, where we removed first the iliac vein clamps and allowed for flow across the venous anastomosis, with excellent hemostasis. We then allowed for the distal artery to open. The anastomotic area opened nicely, signifying no technical issues. We then allowed for forward flow from the artery down the leg. There was excellent flow, again with no need for any suture repair across the anastomosis. We then removed the clamps from the renal artery and vein proper, allowing for flow into and out of the kidney, placed warm irrigation all around the kidney to allow it to go ahead and vasodilate nicely, and there was no need for any suture repairs. Hemostasis was obtained by the use of clips or ties as necessary. Electrocautery was used on the capsule as necessary. The kidney pinked up nicely, with good turgor. The patient was given our standard mannitol 25 gm as well as Lasix 100 mg IV and the second dose of Solumedrol 250 mg IV prior to reperfusion of the allograft. He tolerated this well. We then went ahead and placed the kidney into the right OR left iliac fossa. It laid nicely and had good color. We then repositioned the Bookwalter retractor and had good exposure of the bladder. The antibiotic irrigant was flushed into the bladder. The bladder distended very nicely into our field. After cutting the ureter to the correct length, we opened it to match the bladder opening, and then placed 5-0 PDS suture at each end. We did place a ureteral stent into the transplant ureter into the collecting system and it laid nicely and then into the bladder. When this was completed we placed three Lembert type sutures of 5-0 PDS. We had good hemostasis. We irrigated again with antibiotic solution. Again the kidney laid nicely in the right iliac fossa. The vessels were laying nicely , with no signs of any obstruction to either inflow or outflow. There was a good pulse in distal external iliac artery also as well as the renal artery. We went ahead and did the count as we prepared to close the fascia. The count was incorrect, in regards to a clamp amd a 6-0 needle. We carefully checked but no needle was noted in the wound or on the field, or on the floor. No clamp was seen in any of those places either. We obtained an xray, which showed no evidence of these foreign bodies. We then went ahead and closed the fascia with running #1 PDS suture. We then used subcuticular suture to approximate the skin. A combined dressing was then applied. Patient tolerated the procedure well. .
--- NOTE | 2018-02-17 17:07 | US ---
EXAM DATE: 02/17/2018 5:01 PM EDT AGE/SEX: 77 years / Male INDICATIONS: Increased lab values. CLINICAL DATA: This is the patient's initial encounter. Patient reports that signs and symptoms have been present for 1 day and indicates a pain score of 0/10. MEDICAL/SURGICAL HISTORY: Hypertension. Adrenal hyperplasia. Clay's cyst. BPH. Diabetes. Hyper parathryoidism. Melanoma. Neuropathy. Pneumonia. Skin cancer. Tonsillectomy. AV fistula. TURP. Kelley l transplant. COMPARISON: [facility], CT ABDOMEN AND PELVIS W/O CONTRAST, 01/18/2018. . MEASUREMENTS: Transplant Kidney:__11.2 x 5.7 x 5.1 cm Location:__Right lower quadrant Arcuate Arteries Resistive Index: Upper - 0.6 Mid - 0.8 Lower - 0.7 Main Renal Artery Velocity:__116 Main Renal Vein:__Patent External Iliac Artery Velocity:__299 cm/sec External Iliac Vein:__Patent cm/sec FINDINGS: Transplant Kidney: Normal echotexture and cortical thickness. No mass or hydronephrosis. No peritran splant fluid. Urinary Bladder: Bladder is mildly distended despite presence of Vargas catheter. There is heterogene ously echogenic material surrounding the Vargas catheter balloon measuring 4.8 x 5.0 x 4.1 cm. Other: External iliac artery velocities are elevated at 299 cm/s. CONCLUSION: 1. Unremarkable sonographic appearance of right lower quadrant transplant kidney. 2. Mildly distended bladder despite presence of Vargas catheter with 5 cm heterogeneously echogenic m aterial surrounding the Vargas catheter balloon likely reflecting bladder hematoma. 3. Elevated external iliac artery velocities concerning for hemodynamically significant external brian ac artery stenosis. Electronically signed by: Jonnathan Cheng MD 02/17/2018 5:06 PM EDT
[2018-02-17 17:08] LABS: Platelet Morphology Normal (Normal)
[2018-02-17 17:16] LABS: Calcium 7.4 mg/dL (8.5-10.1); Carbon Dioxide 24.6 meq/L (21.0-32.0); Potassium 5.2 meq/L (3.5-5.1)
[2018-02-17 17:34] LABS: Calcium-Albumin Corrected 8.1 mg/dL (8.5-10.1); Total Protein 5.8 g/dL (6.4-8.2)
[2018-02-17] MEDS ORDERED: Albumin Human 5% Inj 250 ML IV.SIG ONE (18:00)
--- NOTE | 2018-02-17 18:05 | MB ---
cc: Jewel Rodriguez MD DATE: 02/17/2018 REASON FOR CONSULTATION: End-stage renal disease on hemodialysis, admitted for cadaveric renal transplant. HISTORY OF PRESENT ILLNESS: This is a very pleasant 77-year-old male with a past medical history of hypertension, diabetes mellitus, end-stage renal disease on hemodialysis for the last 1 year, history of adrenal hyperplasia, hyperparathyroidism. The patient has been on hemodialysis for 1 year, has been following with Dr. Corbin and according to the patient, he was told that his kidneys are failing because of the diabetes. He was passing some urine and getting the dialysis through the AV fistula. The patient was called for cadaveric transplant. I saw him after the surgery in the recovery room. The patient denies any shortness of breath. Mild pain at the site of the surgery. During the catheterization, he initially had clear urine and then started having gross hematuria, which improved and now he is getting continuous bladder irrigation. PAST MEDICAL HISTORY: Hypertension, diabetes mellitus, history of adrenal hyperplasia, hyperparathyroidism, history of neuropathy, skin cancer. PAST SURGICAL HISTORY: History of TURP and prostatectomy, tonsillectomy, AV fistula surgery. REVIEW OF SYSTEMS: Denies any headache, dizziness or blurring of vision. The patient has no shortness of breath, no chest pain, no palpitations. He is just feeling weak and tired and has some mild abdominal pain at the site of the surgery. No nausea or vomiting. SOCIAL HISTORY: The patient has past history of smoking, stopped a long time ago. There is no history of heavy alcoholism. FAMILY HISTORY: Denies any known family history of renal disease. ALLERGIES: NO KNOWN DRUG ALLERGIES. MEDICATIONS: Currently, he is on following medications: 1. Milk of magnesia as needed. 2. Albumin, 1 dose was given. 3. DuoNeb nebulizer. 4. Dulcolax. 5. Coreg 25 mg b.i.d. 6. Cefazolin 2 grams, 1 dose was given. 7. Benadryl as needed. 8. Insulin sliding scale before meals and at bedtime. 9. Lactulose 30 mL daily. 10. CellCept 750 mg b.i.d. 11. Methylprednisolone, he received one dose, 500 mg geospatial information technologist. 12. Zofran as needed. 13. Restoril as needed. 14. The patient was given Kayexalate for high potassium. PHYSICAL EXAMINATION: GENERAL: The patient is awake, alert, not in acute distress. VITAL SIGNS: His last blood pressure is 153/84, temperature 97.8, oxygen saturation is 97%. HEENT: Pupils are mid constricted. Nonicteric sclerae. Conjunctivae normal. NECK: Supple. JVD is not elevated. LUNGS: The patient has bilateral good air entry with occasional wheezing. HEART: S1, S2. Regular rate and rhythm. ABDOMEN: Slightly distended, soft, lax. There is some tenderness at the site of the surgery. Bowel sounds positive. EXTREMITIES: He has no pedal edema. INVESTIGATIONS: WBC count is 5.0, hemoglobin 9.1, platelet count of 66. Sodium 142, potassium 5.2, chloride 105, bicarbonate 24.6, BUN 37, creatinine 5.5, calcium is 7.4, corrected calcium is pending, phosphorus is 4.0, magnesium 2.0, total protein is pending. INR is 1.1. Urinalysis showing protein of 100. IMAGING STUDIES: The patient has ultrasound of the kidney done, which shows that he has mildly distended bladder, elevated external iliac artery velocities, possibility of significant external iliac artery stenosis. ASSESSMENT AND PLAN: 1. Post-cadaveric renal transplant. 2. Hypertension. 3. Diabetes mellitus. 4. Anemia and thrombocytopenia. 5. Hypocalcemia and history of hyperparathyroidism. The patient has cadaveric renal transplant done and blood pressure is stable. The patient has started passing some urine now, which is clearing up. He is getting the bladder irrigation because of the gross hematuria. The potassium is borderline 5.2. He received Kayexalate before. We will follow it for now and continue the CellCept and ATG and start Prograf possibly tomorrow. Thank you for the consultation. I will follow the patient while he is in the hospital. MD JAYLA Badillo/NAJMA , 05:37 PM , 06:03 PM
--- NOTE | 2018-02-17 18:59 | ECG ---
Date Performed: 02/17/2018 Time Performed: 05:51:34 PTAGE: 77 years EKG: Sinus rhythm with 1st degree A-V block Prolonged QT interval Rightward axis Extensive ST-T changes may be due to myocardial ischemia Abnormal ECG PREVIOUS TRACING :11/23/2016 @09.23 Since the prior tracing, the inferolateral T-wave changes ar e new. Myocardial Ischemia should be excluded clinically. DOCTOR: Massiel Cardoso Interpretating Date/Time 02/17/2018 18:58:55
--- NOTE | 2018-02-17 19:53 | MB ---
cc: Wesley Mccormick DO Wesley Mccormick DO DATE: 02/17/2018 HISTORY OF PRESENT ILLNESS: Mr. Matthews is a pleasant 77-year-old male with history of end-stage renal disease who underwent a kidney transplant today. The patient was noted, during the procedure, to have some gross hematuria at the end of the case. Vargas catheter was changed out to a 3-way Vargas catheter and he was started on CBI. At the bedside, his urine is presently pink and continues to clear on gentle CBI at this point in time. Prior to this, the patient does have a history of BPH with obstruction. He underwent a da Zohreh robotic prostatectomy by Dr. Wan in [place] in the past for benign disease. He also then underwent a TURP at the [facility] approximately 3 years ago. He notes nocturia 1-2 times at night and does make adequate urine, even though he is on hemodialysis. He denied any gross hematuria prior to his admission or any infections. Presently, the patient has a 16 3-way Vargas catheter in good position. MEDICAL HISTORY: Noted for diabetes, BPH, hyperparathyroidism, hypertension, melanoma, neuropathy, pneumonia and skin cancer as well as a Clay cyst. PAST SURGICAL HISTORY: Noted for robotic prostatectomy by Dr. Wan for benign disease and then a TURP at the [facility] in 2014. He also had an AV fistula placed in the past. Tonsillectomy. SOCIAL HISTORY: Prior smoker 1 pack a day for 10 years and quit 45 years ago and social drinker. MEDICATIONS: Please refer to the chart. ALLERGIES: HE HAS NO KNOWN DRUG ALLERGIES. REVIEW OF SYSTEMS: Denies chest pain, shortness of breath, some incisional tenderness is noted. Denies gait disturbances, bleeding disorders. Skin lesions are present, neurologic symptoms. Remaining review of systems reviewed and were negative. PHYSICAL EXAMINATION: VITAL SIGNS: Presently, temperature 98.1, heart rate 84, respiratory rate 16, 141/54, 96% on room air. GENERAL: A well-developed, well-nourished, 77-year-old male in no acute distress. HEENT: Normocephalic, atraumatic. Pupils equal, round, regular, reactive to light. Extraocular movements intact. NECK: Supple. HEART: Regular rate and rhythm. LUNGS: Clear. ABDOMEN: Soft, nontender, nondistended. Minimal incisional tenderness is noted. Vargas catheter is in good position, 16-Djib[place]ian 3-way Vargas draining clear urine, pink urine at the present time. EXTREMITIES: Show no cyanosis, clubbing, or edema. LABORATORY DATA: White count 5.0, hemoglobin 9.1, hematocrit 26.5, platelet count of 66,000. Sodium 142, potassium 5.2, chloride 105, CO2 of 24.6, BUN 37, creatinine 5.53, glucose of 159. PT is 10.9, INR 1.1, PTT is 26.7. Urinalysis preop was negative. ASSESSMENT: A 77-year-old male status post kidney transplant with some gross hematuria with prior benign prostatic hypertrophy and prior prostate surgery. Recommend maintain Vargas catheter and continue with gentle continuous bladder irrigation. Once urine has completely cleared can then discontinue continuous bladder irrigation and recommend a void trial, per transplant surgery. We will follow with you. Thank you for the consult and allowing me to participate in the care of this patient. DO ESTHER Murrell/ , 07:32 PM , 07:51 PM
[2018-02-17] MEDS ORDERED: Morphine Inj 4 MG/ML Vial IV.PUSH ONE (20:54)
[2018-02-17] MEDS ORDERED: Morphine Inj 4 MG/ML Vial ONE (20:56)
[2018-02-17] MEDS ORDERED: Lidocaine 2% Jelly 5 ML Syringe OTHER SCH (21:30)
[2018-02-17] MEDS ORDERED: Morphine Inj 30 MG/30 ML PCA.VIAL PCA PRN (22:00)
--- NOTE | 2018-02-17 22:11 | P.PN ---
Subjective Interval history: Pat s/p DDKT to right iliac fossa. Had some bleeding noted after arellano insertion and prior to kidney placement. Called acutely by the nurse as patient' s postop urine output seemed to decrease abruptly and patient was complaining of significant abd discomfort. Physical Exam Vital signs: Vital Signs 02/17/18 01:00 02/17/18 04:00 02/17/18 07:00 Temperature 97.7 F 97.8 F Pulse Rate 62 63 64 Respiratory Rate 18 18 16 Blood Pressure 187/89 H 172/84 H 153/84 H Pulse Oximetry 98 95 02/17/18 15:58 02/17/18 16:00 02/17/18 16:15 Temperature 99.1 F 99.1 F 99.1 F Pulse Rate 84 82 79 Respiratory Rate 16 18 16 Blood Pressure 133/61 132/42 L 141/45 H Pulse Oximetry 97 97 97 02/17/18 16:30 02/17/18 16:45 02/17/18 17:00 Temperature 99.1 F 99.1 F 99.1 F Pulse Rate 76 76 77 Respiratory Rate 16 16 16 Blood Pressure 146/43 H 143/43 H 131/40 L Pulse Oximetry 96 96 97 02/17/18 17:15 02/17/18 17:30 02/17/18 17:45 Temperature 99.1 F 99.1 F 98.1 F Pulse Rate 79 76 84 Respiratory Rate 16 16 16 Blood Pressure 140/43 L 137/44 L 141/54 H Pulse Oximetry 98 96 96 02/17/18 18:00 02/17/18 21:29 Temperature 98.6 F Pulse Rate 86 Respiratory Rate 16 Blood Pressure 137/66 Pulse Oximetry 99 94 L Intake & Output 02/17/18 02/17/18 02/18/18 06:59 18:59 06:59 Intake Total 0 / 0 3150 / 3150 Output Total 400 / 400 1800 / 1800 1250 / 1250 Balance -400 / -400 1350 / 1350 -1250 / -1250 Weight 84 kg Intake: IV 50 / 50 Ancef 2 GM Premix Inj 2 gm In 50 / 50 50 ml @ 100 mls/hr IV.SIG HOOKER OPERATOR PRN Rx#:[id number] Oral 0 / 0 Anesthesia Amount 3000 / 3000 Bladder Irrigation Fluid - 100 / 100 Amount Retained Output: Urine 400 / 400 600 / 600 Stool 0 / 0 Estimated Blood Loss 400 / 400 Urine Amount (Catheter) 800 / 800 1250 / 1250 3-way Urethral 800 / 800 1250 / 1250 Other: Bladder Irrigation Fluid - 700 Amount Instilled Bladder Irrigation Fluid - 600 Amount Drained Date of Last Bowel Movement 02/16/18 02/16/18 # Bowel Movements 0 Weight On Admission 84 kg - Constitutional mild distress - Routine HEENT Exam Head: Present: normocephalic, atraumatic - Routine Cardiovascular Exam Present: RRR, S1, S2 - Routine Abdominal Exam Present: soft, normoactive bowel sounds, tenderness Comments: suprapubic area - Routine Exam Comments: Arellano with no return with flushing with cysto tubing or 60 ml syringe - Urinary Catheter Management 3-way Urethral Cath placed during this visit: yes, but has since been removed by the nurse Reason for continuing: Gross Hematuria Insertion date: 02/17/18 Insertion time: 17:45 Removal date: 02/17/18 Removal time: 17:30 Results - Labs CBC & Chem 7: 02/17/18 16:24 02/17/18 16:24 Laboratory Results - last 24 hr 02/17/18 02/17/18 02/17/18 02:10 02:10 02:28 WBC 3.8 L RBC 3.08 L Hgb 9.9 L Hct 28.7 L MCV 93.4 MCH 32.1 MCHC 34.4 RDW 13.7 Plt Count 96 L MPV 8.2 Prelim Diff (Auto) Slide review pending Neut % (Auto) 60.4 Lymph % (Auto) 30.8 [place] % (Auto) 7.1 Eos % (Auto) 0.7 Baso % (Auto) 1.0 Neut # (Auto) 2.3 Lymph # (Auto) 1.2 [place] # (Auto) 0.3 Eos # (Auto) 0.0 Baso # (Auto) 0.0 WBC Differential . Diff Scan Auto diff confirmed Differential Comment . Platelet Estimate Low L Platelet Morphology Normal PT INR APTT Puncture Site Patient Temperature O2 Saturation ABG pH ABG pCO2 ABG pO2 ABG HCO3 ABG O2 Content ABG Base Excess ABG Methemoglobin Hemoglobin Carboxyhemoglobin O2 Delivery Device Inspired O2 Critical Value Sodium Potassium Chloride Carbon Dioxide Anion Gap BUN Creatinine Estimated GFR POC Glucose Random Glucose Calcium Prot Corrected Calcium Phosphorus Magnesium Total Bilirubin AST ALT Alkaline Phosphatase Total Protein Albumin Urine Color Urine Clarity Urine pH Ur Specific [place] Urine Protein Urine Glucose (UA) Urine Ketones Urine Occult Blood Urine Nitrate Urine Bilirubin Urine Urobilinogen Ur Leukocyte Esterase Urine RBC Urine WBC Urine Mucus Blood Type O Negative Blood Type Confirm Blood Type Recheck Not needed Antibody Screen Negative MTS Gel Crossmatch See Detail See Detail Bld Prod Order Comment Cancelled 02/17/18 02/17/18 02/17/18 02:28 02:28 03:00 WBC RBC Hgb Hct MCV MCH MCHC RDW Plt Count MPV Prelim Diff (Auto) Neut % (Auto) Lymph % (Auto) [place] % (Auto) Eos % (Auto) Baso % (Auto) Neut # (Auto) Lymph # (Auto) [place] # (Auto) Eos # (Auto) Baso # (Auto) WBC Differential Diff Scan Differential Comment Platelet Estimate Platelet Morphology PT 10.9 INR 1.1 APTT 26.7 Puncture Site Patient Temperature O2 Saturation ABG pH ABG pCO2 ABG pO2 ABG HCO3 ABG O2 Content ABG Base Excess ABG Methemoglobin Hemoglobin Carboxyhemoglobin O2 Delivery Device Inspired O2 Critical Value Sodium 142 Potassium 5.1 Chloride 101 Carbon Dioxide 32.6 H Anion Gap 8 BUN 34 H Creatinine 5.34 H Estimated GFR 11 L POC Glucose Random Glucose 93 Calcium 8.3 L Prot Corrected Calcium Phosphorus Magnesium Total Bilirubin 0.4 AST 9 L ALT 23 Alkaline Phosphatase 58 Total Protein 7.1 Albumin 4.0 Urine Color Straw Urine Clarity Clear Urine pH 8.0 Ur Specific [place] 1.002 Urine Protein 100 H Urine Glucose (UA) 500 or greater Urine Ketones Negative Urine Occult Blood Negative Urine Nitrate Negative Urine Bilirubin Negative Urine Urobilinogen Less than 2 Ur Leukocyte Esterase Negative Urine RBC 1 Urine WBC 1 Urine Mucus Few H Blood Type Blood Type Confirm Blood Type Recheck Antibody Screen MTS Gel Crossmatch Bld Prod Order Comment 02/17/18 02/17/18 02/17/18 03:48 09:04 11:37 WBC RBC Hgb Hct MCV MCH MCHC RDW Plt Count MPV Prelim Diff (Auto) Neut % (Auto) Lymph % (Auto) [place] % (Auto) Eos % (Auto) Baso % (Auto) Neut # (Auto) Lymph # (Auto) [place] # (Auto) Eos # (Auto) Baso # (Auto) WBC Differential Diff Scan Differential Comment Platelet Estimate Platelet Morphology PT INR APTT Puncture Site Drawn in or Patient Temperature 98.6 O2 Saturation 96 ABG pH 7.40 ABG pCO2 46 H ABG pO2 288 H ABG HCO3 28 H ABG O2 Content 16.2 ABG Base Excess 3.3 H ABG Methemoglobin 1.7 Hemoglobin 11.4 L Carboxyhemoglobin 1.3 O2 Delivery Device Or Inspired O2 50 Critical Value No Sodium Potassium Chloride Carbon Dioxide Anion Gap BUN Creatinine Estimated GFR POC Glucose 109 Random Glucose Calcium Prot Corrected Calcium Phosphorus Magnesium Total Bilirubin AST ALT Alkaline Phosphatase Total Protein Albumin Urine Color Urine Clarity Urine pH Ur Specific [place] Urine Protein Urine Glucose (UA) Urine Ketones Urine Occult Blood Urine Nitrate Urine Bilirubin Urine Urobilinogen Ur Leukocyte Esterase Urine RBC Urine WBC Urine Mucus Blood Type Blood Type Confirm O Negative Blood Type Recheck Antibody Screen MTS Gel Crossmatch Bld Prod Order Comment 02/17/18 02/17/18 02/17/18 12:27 13:32 14:30 WBC 1.5 L D RBC 2.96 L Hgb 9.3 L Hct 27.8 L MCV 94.0 MCH 31.6 MCHC 33.6 RDW 13.7 Plt Count 77 L MPV 8.0 Prelim Diff (Auto) Neut % (Auto) Lymph % (Auto) [place] % (Auto) Eos % (Auto) Baso % (Auto) Neut # (Auto) Lymph # (Auto) [place] # (Auto) Eos # (Auto) Baso # (Auto) WBC Differential Diff Scan Differential Comment Platelet Estimate Platelet Morphology PT INR APTT Puncture Site Drawn in or Drawn in or Patient Temperature 98.6 98.6 O2 Saturation 95 96 ABG pH 7.43 H 7.42 ABG pCO2 37 L 39 ABG pO2 123 H 186 H ABG HCO3 24 25 ABG O2 Content 13.6 12.5 ABG Base Excess 0.1 0.7 ABG Methemoglobin 1.7 1.2 Hemoglobin 10.0 L 8.9 L Carboxyhemoglobin 1.5 0.6 O2 Delivery Device Or Or Inspired O2 0 0 Critical Value No No Sodium Potassium Chloride Carbon Dioxide Anion Gap BUN Creatinine Estimated GFR POC Glucose Random Glucose Calcium Prot Corrected Calcium Phosphorus Magnesium Total Bilirubin AST ALT Alkaline Phosphatase Total Protein Albumin Urine Color Urine Clarity Urine pH Ur Specific [place] Urine Protein Urine Glucose (UA) Urine Ketones Urine Occult Blood Urine Nitrate Urine Bilirubin Urine Urobilinogen Ur Leukocyte Esterase Urine RBC Urine WBC Urine Mucus Blood Type Blood Type Confirm Blood Type Recheck Antibody Screen MTS Gel Crossmatch Bld Prod Order Comment 02/17/18 02/17/18 02/17/18 14:32 16:12 16:24 WBC 5.0 D RBC 2.78 L Hgb 8.7 L 9.1 L Hct 25.5 L 26.5 L MCV 95.5 MCH 32.8 MCHC 34.3 RDW 13.9 Plt Count 66 L MPV 7.7 Prelim Diff (Auto) Slide review pending Neut % (Auto) 96.4 H Lymph % (Auto) 0.8 L [place] % (Auto) 2.5 Eos % (Auto) 0.0 Baso % (Auto) 0.3 Neut # (Auto) 4.8 Lymph # (Auto) 0.0 L [place] # (Auto) 0.1 Eos # (Auto) 0.0 Baso # (Auto) 0.0 WBC Differential . Diff Scan Auto diff confirmed Differential Comment . Platelet Estimate Low L Platelet Morphology Normal PT INR APTT Puncture Site Patient Temperature O2 Saturation ABG pH ABG pCO2 ABG pO2 ABG HCO3 ABG O2 Content ABG Base Excess ABG Methemoglobin Hemoglobin Carboxyhemoglobin O2 Delivery Device Inspired O2 Critical Value Sodium Potassium Chloride Carbon Dioxide Anion Gap BUN Creatinine Estimated GFR POC Glucose 160 H Random Glucose Calcium Prot Corrected Calcium Phosphorus Magnesium Total Bilirubin AST ALT Alkaline Phosphatase Total Protein Albumin Urine Color Urine Clarity Urine pH Ur Specific [place] Urine Protein Urine Glucose (UA) Urine Ketones Urine Occult Blood Urine Nitrate Urine Bilirubin Urine Urobilinogen Ur Leukocyte Esterase Urine RBC Urine WBC Urine Mucus Blood Type Blood Type Confirm Blood Type Recheck Antibody Screen MTS Gel Crossmatch Bld Prod Order Comment 02/17/18 16:24 WBC RBC Hgb Hct MCV MCH MCHC RDW Plt Count MPV Prelim Diff (Auto) Neut % (Auto) Lymph % (Auto) [place] % (Auto) Eos % (Auto) Baso % (Auto) Neut # (Auto) Lymph # (Auto) [place] # (Auto) Eos # (Auto) Baso # (Auto) WBC Differential Diff Scan Differential Comment Platelet Estimate Platelet Morphology PT INR APTT Puncture Site Patient Temperature O2 Saturation ABG pH ABG pCO2 ABG pO2 ABG HCO3 ABG O2 Content ABG Base Excess ABG Methemoglobin Hemoglobin Carboxyhemoglobin O2 Delivery Device Inspired O2 Critical Value Sodium 142 Potassium 5.2 H Chloride 105 Carbon Dioxide 24.6 Anion Gap 12 BUN 37 H Creatinine 5.53 H Estimated GFR 10 L POC Glucose Random Glucose 159 H Calcium 7.4 L* D Prot Corrected Calcium 8.1 L Phosphorus 4.0 Magnesium 2.0 Total Bilirubin AST ALT Alkaline Phosphatase Total Protein 5.8 L D Albumin Urine Color Urine Clarity Urine pH Ur Specific [place] Urine Protein Urine Glucose (UA) Urine Ketones Urine Occult Blood Urine Nitrate Urine Bilirubin Urine Urobilinogen Ur Leukocyte Esterase Urine RBC Urine WBC Urine Mucus Blood Type Blood Type Confirm Blood Type Recheck Antibody Screen MTS Gel Crossmatch Bld Prod Order Comment - Imaging Impressions Abdomen X-Ray 02/17/18 00:00 CONCLUSION: Multiple surgical clips in the right lower quadrant. Double-J stent on the right side. Chest X-Ray 02/17/18 00:00 CONCLUSION: 1. Left IJ central line overlying the central SVC without pneumothorax. Chest X-Ray 02/17/18 03:11 CONCLUSION: No acute intrathoracic disease. Renal Ultrasound 02/17/18 16:02 CONCLUSION: 1. Unremarkable sonographic appearance of right lower quadrant transplant kidney. 2. Mildly distended bladder despite presence of Arellano catheter with 5 cm heterogeneously echogenic material surrounding the Arellano catheter balloon likely reflecting bladder hematoma. 3. Elevated external iliac artery velocities concerning for hemodynamically significant external iliac artery stenosis. Assessment and Plan - Assessment (1) HTN (hypertension) Code(s): I10 - Essential (primary) hypertension Status: Acute - Plan Patient with postop bladder hematoma due to arellano related trauma. urojet used and arellano cath replaced with good relief osf symptoms and flow of urine. 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 intra-bladder clot seems slightly smaller ( now 4 cm instead of 5 cm).. Continue slow bladder irrigation... otherwise continue current cares.
--- NOTE | 2018-02-17 23:05 | US ---
EXAM DATE: 02/17/2018 10:49 PM EDT AGE/SEX: 77 years / Male INDICATIONS: Obstruction. CLINICAL DATA: This is the patient's subsequent encounter. Patient reports that signs and symptoms h ave been present for 1 day and indicates a pain score of 2/10. MEDICAL/SURGICAL HISTORY: . Adrenal hyperplasia. Clay's cyst. BPH. Diabetes. Hyperparathyroidi sm. HTN. Melanoma. Neuropathy. Pneumonia. Skin cancer. Tonsillectomy. AV fistula. TURP. Renal transp lant. COMPARISON: [facility] [place], RENAL TRANSPLANT W DOP, 02/17/2018. . MEASUREMENTS: Transplant Kidney:__11.3 x 5.5 x 5.0 cm Location:__Right lower quadrant [place] Arteries Resistive Index: Upper - 0.5 Mid - 0.7 Lower - 0.7 Main Renal Artery Velocity:__217 Main Renal Vein:__Patent External Iliac Artery Velocity:__340 cm/sec External Iliac Vein:__Patent cm/sec FINDINGS: Transplant Kidney: Normal echotexture and cortical thickness. No mass or hydronephrosis. Urinary Bladder: Bladder mass process, presumably enlarged prostate. Bladder remains distended. * Other: None. CONCLUSION: No change from earlier exam Electronically signed by: Ortega Conklin MD 02/17/2018 11:04 PM EDT
[2018-02-18] MEDS: Insulin NovoLOG Aspart Correctional Sugar Inj SQ SCH ×4 (04:30→21:57)
[2018-02-18] MEDS: Sod Chloride 0.9% Inj 1,000 ML IV.CONT SCH ×2 (04:42→15:26)
[2018-02-18 05:43] LABS: Baso % (Auto) 0.1 % (0.0-2.0); Hematocrit 24.8 % (39.0-51.0); Hemoglobin 8.5 gm/dL (13.0-17.0); Lymph % (Auto) 0.7 % (9.0-44.0); Mean Corpuscular HGB Conc 34.2 % (32.0-36.0); Mean Corpuscular Hemoglobin 32.1 pg (27.0-34.0); Mean Corpuscular Volume 94.1 fL (80.0-100.0); Mean Platelet Volume 8.4 fL (7.0-11.0); Mono # (Auto) 0.2 th/mm3 (0.0-0.9); Mono % (Auto) 3.5 % (0.0-8.0); Neut # (Auto) 5.9 th/mm3 (1.8-7.7); Neut % (Auto) 95.7 % (16.0-70.0); Platelet Count 81 th/mm3 (150-450); Red Blood Count 2.63 mil/mm3 (4.50-5.90); Red Cell Distribution Width 13.7 % (11.6-17.2); White Blood Count 6.1 th/mm3 (4.0-11.0)
[2018-02-18 06:15] LABS: Calcium 8.1 mg/dL (8.5-10.1); Magnesium 2.3 mg/dL (1.5-2.5); Potassium 4.7 meq/L (3.5-5.1)
[2018-02-18 06:16] LABS: Phosphorus 5.5 mg/dL (2.5-4.9)
[2018-02-18] MEDS: Docusate Sodium 100 MG Capsule PO SCH ×3 (06:49→21:56)
--- NOTE | 2018-02-18 07:01 | P.OP ---
- Preoperative Diagnosis (1) ESRD (end stage renal disease) - Postoperative Diagnosis (1) ESRD (end stage renal disease) Date of procedure: 02/17/18 (or first assist registered nurse note) Procedure: kidney transplant with ureteroneocystostomy over 6 Fr dble J ureteral stent Anesthesia: GETA Surgeon: Amrik Menchaca MD Accounting Manager Assistant Controller: Sudhir Yancey Estimated blood loss (mL): 200 Operation and Findings: I assisted Dr. Menchaca in the kidney transplant procedure which included exposure, vascular anastomoses and ureteroneocystostomy. Full details as dictated by Dr. Menchaca.
[2018-02-18 07:27] LABS: Monocytes 1 % (0-8); Platelet Morphology Normal (Normal); RBC Morphology Normal (Normal)
--- NOTE | 2018-02-18 08:37 | P.PNURO ---
Subjective Patient symptoms today: Pt seen and examined. Few clots irrigated at bedside. Urine pink. Objective Vital Signs: Vital Signs 02/17/18 15:58 02/17/18 16:00 02/17/18 16:15 Temperature 99.1 F 99.1 F 99.1 F Pulse Rate 84 82 79 Respiratory Rate 16 18 16 Blood Pressure 133/61 132/42 L 141/45 H Pulse Oximetry 97 97 97 02/17/18 16:30 02/17/18 16:45 02/17/18 17:00 Temperature 99.1 F 99.1 F 99.1 F Pulse Rate 76 76 77 Respiratory Rate 16 16 16 Blood Pressure 146/43 H 143/43 H 131/40 L Pulse Oximetry 96 96 97 02/17/18 17:15 02/17/18 17:30 02/17/18 17:45 Temperature 99.1 F 99.1 F 98.1 F Pulse Rate 79 76 84 Respiratory Rate 16 16 16 Blood Pressure 140/43 L 137/44 L 141/54 H Pulse Oximetry 98 96 96 02/17/18 18:00 02/17/18 19:00 02/17/18 20:00 Temperature 98.6 F 99.0 F Pulse Rate 86 88 94 H Respiratory Rate 16 16 Blood Pressure 137/66 162/69 H Pulse Oximetry 99 95 02/17/18 21:29 02/17/18 23:00 02/18/18 03:00 Temperature 98.7 F Pulse Rate 79 71 Respiratory Rate 16 16 Blood Pressure 160/82 H 130/71 Pulse Oximetry 94 L 95 95 02/18/18 06:47 02/18/18 07:00 Temperature 99.2 F Pulse Rate 66 Respiratory Rate 2 L 16 Blood Pressure 142/73 H Pulse Oximetry 98 Intake & Output 02/17/18 02/18/18 02/18/18 18:59 06:59 18:59 Intake Total 3150 / 3150 Output Total 1800 / 1800 7660 / 7660 9115 / 9115 Balance 1350 / 1350 -7660 / -7660 -9115 / -9115 Weight 85 kg Intake: IV 50 / 50 Ancef 2 GM Premix Inj 2 gm In 50 / 50 50 ml @ 100 mls/hr IV.SIG ARTIFICIAL CANDY MAKER PRN Rx#:[id number] Anesthesia Amount 3000 / 3000 Bladder Irrigation Fluid - 100 / 100 Amount Retained Output: Urine 600 / 600 Estimated Blood Loss 400 / 400 Urine Amount (Catheter) 800 / 800 7660 / 7660 9115 / 9115 3-way Urethral 800 / 800 7660 / 7660 9115 / 9115 Other: Bladder Irrigation Fluid - 700 Amount Instilled 3-way Urethral 9,000 Bladder Irrigation Fluid - 600 Amount Drained Date of Last Bowel Movement 02/16/18 02/16/18 Result Diagrams: 02/18/18 05:00 02/18/18 05:00 Imaging: Impressions Abdomen X-Ray 02/17/18 00:00 CONCLUSION: Multiple surgical clips in the right lower quadrant. Double-J stent on the right side. Chest X-Ray 02/17/18 00:00 CONCLUSION: 1. Left IJ central line overlying the central SVC without pneumothorax. Chest X-Ray 02/17/18 03:11 CONCLUSION: No acute intrathoracic disease. Renal Ultrasound 02/17/18 16:02 CONCLUSION: 1. Unremarkable sonographic appearance of right lower quadrant transplant kidney. 2. Mildly distended bladder despite presence of Arellano catheter with 5 cm heterogeneously echogenic material surrounding the Arellano catheter balloon likely reflecting bladder hematoma. 3. Elevated external iliac artery velocities concerning for hemodynamically significant external iliac artery stenosis. Renal Ultrasound 02/17/18 20:51 CONCLUSION: No change from earlier exam Medications and IVs: Active Medications Generic Name Dose Route Start Last Admin Trade Name Freq PRN Reason Stop Dose Admin Al Hydroxide/Mg Hydroxide 30 ml 02/17/18 01:28 Milk Of Magnesia Liq PO Q12H PRN Mild Constipation Albuterol 1 ampul 02/17/18 16:02 Duoneb Neb (Prn) NEB Q6HR NEB PRN WHEEZING Bisacodyl 10 mg 02/17/18 01:28 Dulcolax Supp RECTAL DAILY PRN SEVERE CONSITIPATION Bisacodyl 10 mg 02/20/18 16:02 Dulcolax Supp RECTAL PRN PRN CONSTIPATION Bisacodyl 10 mg 02/20/18 16:02 Dulcolax Ec PO PRN PRN CONSTIPATION Carvedilol 25 mg 02/17/18 09:00 02/17/18 21:17 Coreg PO 25 mg BID MARCIANO Administration Chlorhexidine Gluconate 3 pack 02/17/18 03:30 Chlorhexidine 2% Cloth TOPICAL 02/20/18 03:20 ARTIFICIAL CANDY MAKER MARCIANO Dextrose 50 ml 02/17/18 01:31 D50w Vial IV.PUSH UNSCH PRN PER HYPOGLYCEMIA PROTOCOL Dextrose 50 ml 02/17/18 16:02 D50w Vial IV.PUSH UNSCH PRN PER HYPOGLYCEMIA PROTOCOL Diphenhydramine HCl 25 mg 02/17/18 16:02 Benadryl PO Q6H PRN ITCHING Diphenhydramine HCl 25 mg 02/17/18 16:02 Benadryl Inj IV.PUSH Q6H PRN ITCHING Docusate Sodium 100 mg 02/17/18 21:00 02/18/18 06:49 Colace PO Not Given BID MARCIANO Glucagon 1 mg 02/17/18 01:31 Glucagon Inj OTHER PRN PRN for Hypoglycemia Protocol Glucagon 1 mg 02/17/18 16:02 Glucagon Inj OTHER PRN PRN for Hypoglycemia Protocol Sodium Chloride 1,000 mls @ 100 mls/hr 02/17/18 01:30 02/18/18 04:42 Ns Inj IV.CONT Not Given .Q10H MARCIANO Lactated Ringer's 1,000 mls @ 30 mls/hr 02/17/18 03:30 02/18/18 06:47 Lr 1000 Ml Inj IV.SIG 02/20/18 03:20 Not Given .Q24H MARCIANO Sodium Chloride 500 mls @ 30 mls/hr 02/17/18 04:00 Ns Inj IV.SIG 02/20/18 03:20 .Q10H MARCIANO Sodium Chloride 1,000 mls @ 0 mls/hr 02/17/18 16:02 1/2 Normal Saline Inj IV.CONT .Q0M PRN Replace urine output Titrate Dextrose/Sodium Chloride 1,000 mls @ 40 mls/hr 02/17/18 16:15 D5w/1/2 Ns Inj IV.CONT .Q24H MARCIANO Ondansetron HCl 8 mg/ Dextrose 54 mls @ 200 mls/hr 02/17/18 16:02 IV.SIG ONCE PRN MILD NAUSEA Morphine Sulfate 30 mg in 30 mls @ 0 mls/hr 02/17/18 22:00 02/17/18 22:15 Morphine Inj BLOCK ENGRAVER 0 mls/hr UNSCH PRN Administration per BLOCK ENGRAVER parameters 0 MG/HR Insulin Aspart 0 unit 02/17/18 08:00 02/18/18 04:30 Novolog Insulin Suppl Scale Inj SQ Not Given ACHS [facility] Protocol Lactulose 30 ml 02/17/18 01:28 Lactulose Liq PO DAILY PRN SEVERE CONSITIPATION Lidocaine HCl 5 ml 02/17/18 21:30 Xylocaine 2% Jelly OTHER ONCE [facility] Miscellaneous Information 1 each 02/17/18 16:57 Mis Nursing Information OTHER 02/18/18 16:57 UNSCH PRN SEE LABEL COMMENTS Mycophenolate Mofetil 750 mg 02/18/18 06:00 02/18/18 06:41 Cellcept PO 750 mg BID@0600,1800 [facility] Administration Naloxone HCl 0.4 mg 02/17/18 16:02 Narcan Inj IV.PUSH PRN PRN Resp rate < 10 Naloxone HCl 0.4 mg 02/17/18 20:58 Narcan Inj IV.PUSH PRN PRN Resp rate < 10 Ondansetron HCl 4 mg 02/17/18 16:02 Zofran Inj IV.PUSH Q6H PRN MILD NAUSEA Pantoprazole Sodium 40 mg 02/18/18 09:00 Protonix PO DAILY [facility] Povidone Iodine 1 applicatio 02/17/18 03:30 02/17/18 04:47 Betadine 5% Antisepsis Kit EACH NARE 02/20/18 03:20 1 applicatio ARTIFICIAL CANDY MAKER [facility] Administration Sennosides 17.2 mg 02/17/18 01:28 Senokot PO Q12H PRN Moderate Constipation Tacrolimus 2 mg 02/18/18 18:00 Prograf PO BID@0600,1800 [facility] Temazepam 15 mg 02/17/18 01:28 Restoril PO HS PRN INSOMNIA Objective Remarks: Abd: soft,nt,nd Arellano on CBI: pink in color Assessment and Plan - Plan 77 y.o male s/p KTX with gross hematuria Recommend manually irrigating arellano Q6 hours to make sure there is no clot buildup. If so, recommend changing up to [address]F [address] way Continue CBI.
[2018-02-18] MEDS ORDERED: diphenhydrAMINE HCl 50 MG/ML VIAL IV.PUSH PRN (09:10)
[2018-02-18] MEDS ORDERED: Hydrocortisone Sod Succinate 250 MG Vial IV.PUSH PRN (09:11)
[2018-02-18] MEDS ORDERED: MethylPREDNISolone Sod Succinate Inj 125 MG/2 ML Vial IV.PUSH SCH (09:15)
[2018-02-18] MEDS ORDERED: diphenhydrAMINE HCl 50 MG/ML VIAL IV.PUSH SCH (09:15)
[2018-02-18] MEDS ORDERED: Acetaminophen 325 MG Tablet PO SCH (09:15)
[2018-02-18] MEDS: Sodium Chloride 0.45 % Inj 1,000 ML IV.CONT PRN (09:20)
[2018-02-18] MEDS: Carvedilol 12.5 MG Tablet PO SCH ×2 (09:36→21:57)
--- NOTE | 2018-02-18 09:39 | P.PNTS ---
Subjective Interval history: Had some issue with bladder clots overnight. Denies discomfort at this time. Pain about 3-4/10. No N/V Physical Exam Vital signs: Vital Signs 02/17/18 15:58 02/17/18 16:00 02/17/18 16:15 Temperature 99.1 F 99.1 F 99.1 F Pulse Rate 84 82 79 Respiratory Rate 16 18 16 Blood Pressure 133/61 132/42 L 141/45 H Pulse Oximetry 97 97 97 02/17/18 16:30 02/17/18 16:45 02/17/18 17:00 Temperature 99.1 F 99.1 F 99.1 F Pulse Rate 76 76 77 Respiratory Rate 16 16 16 Blood Pressure 146/43 H 143/43 H 131/40 L Pulse Oximetry 96 96 97 02/17/18 17:15 02/17/18 17:30 02/17/18 17:45 Temperature 99.1 F 99.1 F 98.1 F Pulse Rate 79 76 84 Respiratory Rate 16 16 16 Blood Pressure 140/43 L 137/44 L 141/54 H Pulse Oximetry 98 96 96 02/17/18 18:00 02/17/18 19:00 02/17/18 20:00 Temperature 98.6 F 99.0 F Pulse Rate 86 88 94 H Respiratory Rate 16 16 Blood Pressure 137/66 162/69 H Pulse Oximetry 99 95 02/17/18 21:29 02/17/18 23:00 02/18/18 03:00 Temperature 98.7 F Pulse Rate 79 71 Respiratory Rate 16 16 Blood Pressure 160/82 H 130/71 Pulse Oximetry 94 L 95 95 02/18/18 06:47 02/18/18 07:00 Temperature 99.2 F Pulse Rate 66 Respiratory Rate 2 L 16 Blood Pressure 142/73 H Pulse Oximetry 98 Intake & Output 02/17/18 02/18/18 02/18/18 18:59 06:59 18:59 Intake Total 3150 / 3150 Output Total 1800 / 1800 7660 / 7660 9115 / 9115 Balance 1350 / 1350 -7660 / -7660 -9115 / -9115 Weight 85 kg Intake: IV 50 / 50 Ancef 2 GM Premix Inj 2 gm In 50 / 50 50 ml @ 100 mls/hr IV.SIG [employer] PRN Rx#:[id number] Anesthesia Amount 3000 / 3000 Bladder Irrigation Fluid - 100 / 100 Amount Retained Output: Urine 600 / 600 Estimated Blood Loss 400 / 400 Urine Amount (Catheter) 800 / 800 7660 / 7660 9115 / 9115 3-way Urethral 800 / 800 7660 / 7660 9115 / 9115 Other: Bladder Irrigation Fluid - 700 Amount Instilled 3-way Urethral 9,000 Bladder Irrigation Fluid - 600 Amount Drained Date of Last Bowel Movement 02/16/18 02/16/18 - Constitutional no acute distress - Routine HEENT Exam Head: Present: normocephalic, atraumatic Eye: Present: EOMI - Routine Neck Exam Present: supple - Routine Respiratory Exam Present: CTA bilaterally - Routine Cardiovascular Exam Present: RRR, S1, S2 - Routine Abdominal Exam Present: soft, normoactive bowel sounds Comments: Abd soft, NT/ND. Dressing dry/intact. - Routine Extremities Exam Present: pulses intact Comments: Calves soft NT B. Palpable distal pulses - Routine Neurological Exam Present: alert, oriented X3 - Urinary Catheter Management 3-way Urethral Cath placed during this visit: yes, but has since been removed by the nurse Urethral indwelling: Yes Reason for continuing: Gross Hematuria Insertion date: 02/17/18 Insertion time: 17:45 Removal date: 02/17/18 Removal time: 17:30 Results - Labs CBC & Chem 7: 02/18/18 05:00 02/18/18 05:00 Laboratory Results - last 24 hr 02/17/18 02/17/18 02/17/18 11:37 12:27 13:32 WBC 1.5 L D RBC 2.96 L Hgb 9.3 L Hct 27.8 L MCV 94.0 MCH 31.6 MCHC 33.6 RDW 13.7 Plt Count 77 L MPV 8.0 Prelim Diff (Auto) Neut % (Auto) Lymph % (Auto) [place] % (Auto) Eos % (Auto) Baso % (Auto) Neut # (Auto) Lymph # (Auto) [place] # (Auto) Eos # (Auto) Baso # (Auto) WBC Differential Diff Scan Seg Neuts % (Manual) Band Neuts % (Manual) Monocytes % (Manual) Abs Neuts (Manual) Differential Comment Platelet Estimate Platelet Morphology RBC Morphology Puncture Site Drawn in or Drawn in or Patient Temperature 98.6 98.6 O2 Saturation 96 95 ABG pH 7.40 7.43 H ABG pCO2 46 H 37 L ABG pO2 288 H 123 H ABG HCO3 28 H 24 ABG O2 Content 16.2 13.6 ABG Base Excess 3.3 H 0.1 ABG Methemoglobin 1.7 1.7 Hemoglobin 11.4 L 10.0 L Carboxyhemoglobin 1.3 1.5 O2 Delivery Device Or Or Inspired O2 50 0 Critical Value No No Sodium Potassium Chloride Carbon Dioxide Anion Gap BUN Creatinine Estimated GFR POC Glucose Random Glucose Calcium Prot Corrected Calcium Phosphorus Magnesium Total Protein 02/17/18 02/17/18 02/17/18 14:30 14:32 16:12 WBC RBC Hgb 8.7 L Hct 25.5 L MCV MCH MCHC RDW Plt Count MPV Prelim Diff (Auto) Neut % (Auto) Lymph % (Auto) [place] % (Auto) Eos % (Auto) Baso % (Auto) Neut # (Auto) Lymph # (Auto) [place] # (Auto) Eos # (Auto) Baso # (Auto) WBC Differential Diff Scan Seg Neuts % (Manual) Band Neuts % (Manual) Monocytes % (Manual) Abs Neuts (Manual) Differential Comment Platelet Estimate Platelet Morphology RBC Morphology Puncture Site Drawn in or Patient Temperature 98.6 O2 Saturation 96 ABG pH 7.42 ABG pCO2 39 ABG pO2 186 H ABG HCO3 25 ABG O2 Content 12.5 ABG Base Excess 0.7 ABG Methemoglobin 1.2 Hemoglobin 8.9 L Carboxyhemoglobin 0.6 O2 Delivery Device Or Inspired O2 0 Critical Value No Sodium Potassium Chloride Carbon Dioxide Anion Gap BUN Creatinine Estimated GFR POC Glucose 160 H Random Glucose Calcium Prot Corrected Calcium Phosphorus Magnesium Total Protein 02/17/18 02/17/18 02/18/18 16:24 16:24 00:38 WBC 5.0 D RBC 2.78 L Hgb 9.1 L Hct 26.5 L MCV 95.5 MCH 32.8 MCHC 34.3 RDW 13.9 Plt Count 66 L MPV 7.7 Prelim Diff (Auto) Slide review pending Neut % (Auto) 96.4 H Lymph % (Auto) 0.8 L [place] % (Auto) 2.5 Eos % (Auto) 0.0 Baso % (Auto) 0.3 Neut # (Auto) 4.8 Lymph # (Auto) 0.0 L [place] # (Auto) 0.1 Eos # (Auto) 0.0 Baso # (Auto) 0.0 WBC Differential . Diff Scan Auto diff confirmed Seg Neuts % (Manual) Band Neuts % (Manual) Monocytes % (Manual) Abs Neuts (Manual) Differential Comment . Platelet Estimate Low L Platelet Morphology Normal RBC Morphology Puncture Site Patient Temperature O2 Saturation ABG pH ABG pCO2 ABG pO2 ABG HCO3 ABG O2 Content ABG Base Excess ABG Methemoglobin Hemoglobin Carboxyhemoglobin O2 Delivery Device Inspired O2 Critical Value Sodium 142 Potassium 5.2 H Chloride 105 Carbon Dioxide 24.6 Anion Gap 12 BUN 37 H Creatinine 5.53 H Estimated GFR 10 L POC Glucose 248 H Random Glucose 159 H Calcium 7.4 L* D Prot Corrected Calcium 8.1 L Phosphorus 4.0 Magnesium 2.0 Total Protein 5.8 L D 02/18/18 02/18/18 02/18/18 00:58 05:00 05:00 WBC 6.1 RBC 2.63 L Hgb 8.5 L Hct 24.8 L MCV 94.1 MCH 32.1 MCHC 34.2 RDW 13.7 Plt Count 81 L MPV 8.4 Prelim Diff (Auto) Slide review pending Neut % (Auto) 95.7 H Lymph % (Auto) 0.7 L [place] % (Auto) 3.5 Eos % (Auto) 0.0 Baso % (Auto) 0.1 Neut # (Auto) 5.9 Lymph # (Auto) 0.0 L [place] # (Auto) 0.2 Eos # (Auto) 0.0 Baso # (Auto) 0.0 WBC Differential Manual diff final Diff Scan Seg Neuts % (Manual) 83 H Band Neuts % (Manual) 16 H Monocytes % (Manual) 1 Abs Neuts (Manual) 6.0 Differential Comment . Platelet Estimate Low L Platelet Morphology Normal RBC Morphology Normal Puncture Site Patient Temperature O2 Saturation ABG pH ABG pCO2 ABG pO2 ABG HCO3 ABG O2 Content ABG Base Excess ABG Methemoglobin Hemoglobin Carboxyhemoglobin O2 Delivery Device Inspired O2 Critical Value Sodium 143 Potassium 4.7 Chloride 105 Carbon Dioxide 28.0 Anion Gap 10 BUN 43 H Creatinine 4.67 H Estimated GFR 12 L POC Glucose 246 H Random Glucose 223 H Calcium 8.1 L Prot Corrected Calcium Phosphorus 5.5 H D Magnesium 2.3 Total Protein - Imaging Impressions Abdomen X-Ray 02/17/18 00:00 CONCLUSION: Multiple surgical clips in the right lower quadrant. Double-J stent on the right side. Chest X-Ray 02/17/18 00:00 CONCLUSION: 1. Left IJ central line overlying the central SVC without pneumothorax. Renal Ultrasound 02/17/18 16:02 CONCLUSION: 1. Unremarkable sonographic appearance of right lower quadrant transplant kidney. 2. Mildly distended bladder despite presence of Vargas catheter with 5 cm heterogeneously echogenic material surrounding the Vargas catheter balloon likely reflecting bladder hematoma. 3. Elevated external iliac artery velocities concerning for hemodynamically significant external iliac artery stenosis. 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 US x 2 postop, shows patent vessels. There is also a "clot" noted in the bladder Prophylaxis: Decubitus ulcer: patient awake, alert, and mobile CMV prophylaxis: Not yet started PCP prophylaxis: Not yet started Consults: Transplant Nephrology Urologist Assessment and Plan: S/P DDKT to right iliac fossa. Allograft function: Creatinine decreased from admit. CBI running so current outputs inaccurate. Nursing adjusting measuring plan, so should be more accurate. Abd soft, approp tender. Continue insulin sliding scale-will increase to moderate scale rather than low scale. Daily standing weight. B SCDs. Will plan to give 1 mg/kg thymo today. Will start Flomax. Immunosuppression: Thymo induction; Maint: steroids + Cellcept 750 mg BID + prograf (will start 2 mg BID today)
[2018-02-18] MEDS ORDERED: Dextrose 50% in Water 50 ML Vial IV.PUSH PRN (09:43)
[2018-02-18] MEDS ORDERED: SODIUM CHLOR 0.9% IV.SIG SCH (10:00)
[2018-02-18] MEDS ORDERED: ANTITHYMOCYTE IG IV.SIG SCH (10:00)
--- NOTE | 2018-02-18 10:10 | P.DIET ---
Nutritional Evaluation Type of nutrition evaluation: initial Screening comments: Initial nutritional assessment for pt s/p DDKT Subjective Subjective Comments: Pt states he feels good, no nausea Objective - Diagnosis Kidney Transplant - Objective % IBW: 104 Body Weight Used for Calculations: Actual Energy Needs - Lower Range (kCal/kg): 25 Energy Needs - Upper Range (kCal/kg): 30 Lower Limit kCal/kg (kCals): 2,100 Upper Limit kCal/kg (kCals): 2,520 Lower Limit Protein Factor (Grams per Kg): 1.2 Upper Limit Protein Factor (Grams per Kg): 1.3 Lower Protein Needs (Protein): 101 Upper Protein Needs (Protein): 111 Dietitian Reviewed in Medical Record: Current diet, Curent medications, Intake & Output, Labs, Medical history Diet Order: CL Objective Comments: Nutritional needs based on 84kg PMH: DM, Hyperparathyroidism, Melanoma, PNA, Neuropathy, HTN Labs include: Hgb 8.5, Hct 24.8, Plt 81, K+ 4.7, Cr 4.67, Glu 223, Phos 5.5 Assessment Assessment: Pt at nutritional risk r/t current clinical status. Pt POD #1 DDKT. Nutritional needs as assessed above. Pt to start CL diet today. Noted UOP both urine and blood/clots, reviewed Urology consult, renal US x 2. Will monitor renal function , diet advancement. Pt will be educated on diet and nutrition after transplant before discharge. Recommendations: CL diet Monitor diet advancement Nutrition education for post transplant prior to discharge Dietitian following pt with the transplant team
[2018-02-18 11:24] LABS: Reticulocyte Percent 0.9 % (0.4-3.0)
[2018-02-18 12:28] LABS: % Iron Saturation 14.4 % (20-50)
--- NOTE | 2018-02-18 12:59 | P.PNNP ---
Subjective Interval history: pleasant 77-year-old male with a past medical history of hypertension, diabetes mellitus, end-stage renal disease on hemodialysis for the last 1 year, history of adrenal hyperplasia, hyperparathyroidism. The patient has been on hemodialysis for 1 year, has been following with Dr. Corbin and according to the patient, he was told that his kidneys are failing because of the diabetes. He was passing some urine and getting the dialysis through the AV fistula. The patient was called for cadaveric transplant. Patient is alert, no SOB, mild pain at surgery site. Physical Exam Vital signs: Vital Signs 02/17/18 15:58 02/17/18 16:00 02/17/18 16:15 Temperature 99.1 F 99.1 F 99.1 F Pulse Rate 84 82 79 Respiratory Rate 16 18 16 Blood Pressure 133/61 132/42 L 141/45 H Pulse Oximetry 97 97 97 02/17/18 16:30 02/17/18 16:45 02/17/18 17:00 Temperature 99.1 F 99.1 F 99.1 F Pulse Rate 76 76 77 Respiratory Rate 16 16 16 Blood Pressure 146/43 H 143/43 H 131/40 L Pulse Oximetry 96 96 97 02/17/18 17:15 02/17/18 17:30 02/17/18 17:45 Temperature 99.1 F 99.1 F 98.1 F Pulse Rate 79 76 84 Respiratory Rate 16 16 16 Blood Pressure 140/43 L 137/44 L 141/54 H Pulse Oximetry 98 96 96 02/17/18 18:00 02/17/18 19:00 02/17/18 20:00 Temperature 98.6 F 99.0 F Pulse Rate 86 88 94 H Respiratory Rate 16 16 Blood Pressure 137/66 162/69 H Pulse Oximetry 99 95 02/17/18 21:29 02/17/18 23:00 02/18/18 03:00 Temperature 98.7 F Pulse Rate 79 71 Respiratory Rate 16 16 Blood Pressure 160/82 H 130/71 Pulse Oximetry 94 L 95 95 02/18/18 06:47 02/18/18 07:00 Temperature 99.2 F Pulse Rate 66 Respiratory Rate 2 L 16 Blood Pressure 142/73 H Pulse Oximetry 98 Intake & Output 02/17/18 02/18/18 02/18/18 18:59 06:59 18:59 Intake Total 3150 / 3150 Output Total 1800 / 1800 7660 / 7660 9115 / 9115 Balance 1350 / 1350 -7660 / -7660 -9115 / -9115 Weight 85 kg Intake: IV 50 / 50 Ancef 2 GM Premix Inj 2 gm In 50 / 50 50 ml @ 100 mls/hr IV.SIG [employer] PRN Rx#:[id number] Anesthesia Amount 3000 / 3000 Bladder Irrigation Fluid - 100 / 100 Amount Retained Output: Urine 600 / 600 Estimated Blood Loss 400 / 400 Urine Amount (Catheter) 800 / 800 7660 / 7660 9115 / 9115 3-way Urethral 800 / 800 7660 / 7660 15 / 9115 Other: Bladder Irrigation Fluid - 700 Amount Instilled 3-way Urethral 9,000 Bladder Irrigation Fluid - 600 Amount Drained Date of Last Bowel Movement 02/16/18 02/16/18 - Constitutional no acute distress - Routine HEENT Exam Head: Present: normocephalic ENT: Present: mucous membranes moist - Routine Neck Exam Present: supple - Routine Respiratory Exam Present: decreased breath sounds, rhonchi, diminished air movement - Routine Cardiovascular Exam Present: RRR, S1, S2 - Routine Abdominal Exam Present: soft, normoactive bowel sounds, distended - Routine Neurological Exam Present: alert, oriented X3 - Detailed Neurological Exam: Coma Scale Verbal Response: Oriented - Urinary Catheter Management 3-way Urethral Cath placed during this visit: yes, but has since been removed by the nurse Urethral indwelling: Yes Reason for continuing: Gross Hematuria Insertion date: 02/17/18 Insertion time: 17:45 Removal date: 02/17/18 Removal time: 17:30 Assessment and Plan - Plan 1. Post-cadaveric renal transplant. 2. Hypertension. 3. Diabetes mellitus. 4. Anemia and thrombocytopenia. 5. Hypocalcemia and history of hyperparathyroidism. The patient has cadaveric renal transplant done on 02/18/18. The blood pressure is stable. The patient has started passing some urine now, which is clearing up. He is getting the bladder irrigation because of the gross hematuria. Still on CBI, hematuria is improving. Creatinine is slightly better, and K is normal. On CellCept and ATG and started on Prograf.
[2018-02-18] MEDS: Dextrose 5%/NaCl 0.45% Inj 1,000 ML IV.CONT SCH (15:56)
--- NOTE | 2018-02-18 21:39 | P.PN ---
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 Resting in bed, no fever, chills. Undergoing bladder irrigation due to hematuria. Physical Exam Vital signs: Vital Signs 02/17/18 23:00 02/18/18 03:00 02/18/18 06:47 Temperature 98.7 F Pulse Rate 79 71 Respiratory Rate 16 16 2 L Blood Pressure 160/82 H 130/71 Pulse Oximetry 95 95 02/18/18 07:00 02/18/18 07:10 02/18/18 08:00 Temperature 99.2 F Pulse Rate 66 Respiratory Rate 16 Blood Pressure 142/73 H Pulse Oximetry 98 94 L 98 02/18/18 11:00 02/18/18 15:00 02/18/18 16:00 Temperature 98.9 F 99.0 F Pulse Rate 65 60 Respiratory Rate 18 16 16 Blood Pressure 122/52 L 149/50 H 149/50 H Pulse Oximetry 97 95 Intake & Output 02/18/18 02/18/18 02/19/18 06:59 18:59 06:59 Intake Total 960 / 960 Output Total 7660 / 7660 77644 / 20025 Balance -7660 / -7660 -9675 / -9675 Weight 85 kg Intake: Oral 960 / 960 Output: Urine Amount (Catheter) 7660 / 7660 01925 / 55792 3-way Urethral 7660 / 7660 13936 / 95284 Other: Bladder Irrigation Fluid - Amount Instilled 3-way Urethral 9,378 Bladder Irrigation Fluid - Amount Drained 3-way Urethral 11,475 Date of Last Bowel Movement 02/16/18 Narrative: GENERAL: Alert, Oriented x 3, NAD SKIN: Warm and dry. HEAD: Normocephalic. EYES: No scleral icterus. No injection or drainage. NECK: Supple, trachea midline. No JVD or lymphadenopathy. CARDIOVASCULAR: Regular rate and rhythm without murmurs, gallops, or rubs. RESPIRATORY: Breath sounds equal bilaterally. No accessory muscle use. GASTROINTESTINAL: Abdomen soft, non-tender, nondistended. MUSCULOSKELETAL: No cyanosis, or edema. BACK: Nontender without obvious deformity. No CVA tenderness. - Urinary Catheter Management 3-way Urethral Cath placed during this visit: yes, but has since been removed by the nurse Urethral indwelling: Yes Reason for continuing: Gross Hematuria Insertion date: 02/17/18 Insertion time: 17:45 Removal date: 02/17/18 Removal time: 17:30 Results - Labs CBC & Chem 7: 02/18/18 05:00 02/18/18 05:00 Laboratory Results - last 24 hr 02/18/18 02/18/18 02/18/18 00:38 00:58 05:00 WBC 6.1 RBC 2.63 L Hgb 8.5 L Hct 24.8 L MCV 94.1 MCH 32.1 MCHC 34.2 RDW 13.7 Plt Count 81 L MPV 8.4 Prelim Diff (Auto) Slide review pending Neut % (Auto) 95.7 H Lymph % (Auto) 0.7 L [place] % (Auto) 3.5 Eos % (Auto) 0.0 Baso % (Auto) 0.1 Neut # (Auto) 5.9 Lymph # (Auto) 0.0 L [place] # (Auto) 0.2 Eos # (Auto) 0.0 Baso # (Auto) 0.0 WBC Differential Manual diff final Seg Neuts % (Manual) 83 H Band Neuts % (Manual) 16 H Monocytes % (Manual) 1 Abs Neuts (Manual) 6.0 Differential Comment . Platelet Estimate Low L Platelet Morphology Normal RBC Morphology Normal Retic Count Absolute Retic Sodium Potassium Chloride Carbon Dioxide Anion Gap BUN Creatinine Estimated GFR POC Glucose 248 H 246 H Random Glucose Calcium Phosphorus Magnesium Iron TIBC % Saturation Ferritin 02/18/18 02/18/18 02/18/18 05:00 05:00 05:00 WBC RBC Hgb Hct MCV MCH MCHC RDW Plt Count MPV Prelim Diff (Auto) Neut % (Auto) Lymph % (Auto) [place] % (Auto) Eos % (Auto) Baso % (Auto) Neut # (Auto) Lymph # (Auto) [place] # (Auto) Eos # (Auto) Baso # (Auto) WBC Differential Seg Neuts % (Manual) Band Neuts % (Manual) Monocytes % (Manual) Abs Neuts (Manual) Differential Comment Platelet Estimate Platelet Morphology RBC Morphology Retic Count 0.9 Absolute Retic 22.8 Sodium 143 Potassium 4.7 Chloride 105 Carbon Dioxide 28.0 Anion Gap 10 BUN 43 H Creatinine 4.67 H Estimated GFR 12 L POC Glucose Random Glucose 223 H Calcium 8.1 L Phosphorus 5.5 H D Magnesium 2.3 Iron TIBC % Saturation Ferritin 648 H 02/18/18 02/18/18 02/18/18 05:00 09:34 12:18 WBC RBC Hgb Hct MCV MCH MCHC RDW Plt Count MPV Prelim Diff (Auto) Neut % (Auto) Lymph % (Auto) [place] % (Auto) Eos % (Auto) Baso % (Auto) Neut # (Auto) Lymph # (Auto) [place] # (Auto) Eos # (Auto) Baso # (Auto) WBC Differential Seg Neuts % (Manual) Band Neuts % (Manual) Monocytes % (Manual) Abs Neuts (Manual) Differential Comment Platelet Estimate Platelet Morphology RBC Morphology Retic Count Absolute Retic Sodium Potassium Chloride Carbon Dioxide Anion Gap BUN Creatinine Estimated GFR POC Glucose 198 H 280 H Random Glucose Calcium Phosphorus Magnesium Iron 32 L TIBC 223 L % Saturation 14.4 L Ferritin 02/18/18 17:14 WBC RBC Hgb Hct MCV MCH MCHC RDW Plt Count MPV Prelim Diff (Auto) Neut % (Auto) Lymph % (Auto) [place] % (Auto) Eos % (Auto) Baso % (Auto) Neut # (Auto) Lymph # (Auto) [place] # (Auto) Eos # (Auto) Baso # (Auto) WBC Differential Seg Neuts % (Manual) Band Neuts % (Manual) Monocytes % (Manual) Abs Neuts (Manual) Differential Comment Platelet Estimate Platelet Morphology RBC Morphology Retic Count Absolute Retic Sodium Potassium Chloride Carbon Dioxide Anion Gap BUN Creatinine Estimated GFR POC Glucose 170 H Random Glucose Calcium Phosphorus Magnesium Iron TIBC % Saturation Ferritin - Imaging Impressions Renal Ultrasound 02/17/18 20:51 CONCLUSION: No change from earlier exam Assessment and Plan - Assessment (1) ESRD (end stage renal disease) Code(s): N18.6 - End stage renal disease Status: Acute (2) HTN (hypertension) Code(s): I10 - Essential (primary) hypertension Status: Acute (3) Diabetes mellitus Code(s): E11.9 - Type 2 diabetes mellitus without complications Status: Chronic - Plan Mr. Matthews is a pleasant 77 year old male with a history of DM, HTN, ESRD on MWF hemodialysis who took a flight to come back to [place] after he was informed for matched kidney for transplant. At the time of this interview, he is hemodynamically stable and remains in good spirit. End stage Renal disease -s/p renal transplant. Currently on Cellcept, Prograf. -Transplant surgery, Urology, Nephrology following. Diabetes mellitus - Controlled with lifestyle modifications. - Will keep him on sliding scale insulin. Goal BG 140-180 in the hospital. - Start low dose Levemir 5 units QHS. Hypertension - Currently takes Carvedilol 25mg BID. Full code. Ambulation. Pharmacological DVT prophylaxis per Transplant surgeon.
[2018-02-19] MEDS: Insulin Detemir Inj 1,000 UNIT/10 ML Vial SQ SCH ×2 (00:11→20:57)
[2018-02-19] MEDS: Sodium Chloride 0.45 % Inj 1,000 ML IV.CONT PRN (04:09)
[2018-02-19] MEDS: Insulin NovoLOG Aspart Correctional Sugar Inj SQ SCH ×5 (04:11→21:00)
[2018-02-19 06:25] LABS: Baso % (Auto) 0.1 % (0.0-2.0); Eos % (Auto) 0.1 % (0.0-4.0); Hemoglobin 7.1 gm/dL (13.0-17.0); Lymph % (Auto) 1.5 % (9.0-44.0); Mean Corpuscular HGB Conc 33.9 % (32.0-36.0); Mean Corpuscular Volume 94.3 fL (80.0-100.0); Mean Platelet Volume 8.5 fL (7.0-11.0); Mono # (Auto) 0.2 th/mm3 (0.0-0.9); Mono % (Auto) 6.2 % (0.0-8.0); Neut % (Auto) 92.1 % (16.0-70.0); Platelet Count 76 th/mm3 (150-450); Red Blood Count 2.21 mil/mm3 (4.50-5.90); Red Cell Distribution Width 13.6 % (11.6-17.2); White Blood Count 3.3 th/mm3 (4.0-11.0)
[2018-02-19 06:32] LABS: Hematocrit 20.9 % (39.0-51.0)
[2018-02-19 06:49] LABS: Carbon Dioxide 28.6 meq/L (21.0-32.0); Magnesium 2.4 mg/dL (1.5-2.5); Phosphorus 3.4 mg/dL (2.5-4.9); Potassium 4.1 meq/L (3.5-5.1)
--- NOTE | 2018-02-19 08:19 | P.PNTS ---
Subjective Interval history: No new c/o. Pain 09/25. No N/V. Denies bladder pain Physical Exam Vital signs: Vital Signs 02/18/18 11:00 02/18/18 15:00 02/18/18 16:00 Temperature 98.9 F 99.0 F Pulse Rate 65 60 Respiratory Rate 18 16 16 Blood Pressure 122/52 L 149/50 H 149/50 H Pulse Oximetry 97 95 02/18/18 19:00 02/18/18 20:00 02/18/18 22:50 Temperature 98.2 F Pulse Rate 75 Respiratory Rate 14 Blood Pressure 158/78 H 158/78 H Pulse Oximetry 95 96 02/18/18 23:00 02/19/18 00:00 02/19/18 03:00 Temperature 98.5 F 98.7 F Pulse Rate 73 67 Respiratory Rate 12 14 Blood Pressure 135/63 142/64 H 149/76 H Pulse Oximetry 97 Intake & Output 02/18/18 02/19/18 02/19/18 18:59 06:59 18:59 Intake Total 960 / 960 1000 / 1000 Output Total 03451 / 96751 2536 / 2536 245 / 245 Balance -9675 / -9675 -1536 / -1536 -245 / -245 Weight 85.2 kg Intake: IV 1000 / 1000 1/2 Normal Saline Inj 1,000 ML 1000 / 1000 @ Titrate IV.CONT .Q0M PRN Rx#: [id number] Oral 960 / 960 Output: Urine Amount (Catheter) 66670 / 50652 2536 / 2536 245 / 245 3-way Urethral 30569 / 23026 2536 / 2536 245 / 245 Other: Bladder Irrigation Fluid - Amount Instilled 3-way Urethral 9,378 800 355 Bladder Irrigation Fluid - Amount Drained 3-way Urethral 11,475 Date of Last Bowel Movement 02/16/18 02/16/18 - Constitutional no acute distress - Routine HEENT Exam Head: Present: normocephalic, atraumatic Eye: Present: EOMI - Routine Neck Exam Present: supple - Routine Respiratory Exam Present: CTA bilaterally - Routine Cardiovascular Exam Present: RRR, S1, S2 - Routine Abdominal Exam Present: soft, normoactive bowel sounds Comments: Abd soft, + BS, appropr tender. Dressing dry/ intact. - Routine Exam Comments: Urine less bloody (more light pink now) - Routine Extremities Exam Comments: calves soft, NT bilaterally. Palpable distal pulses. - Routine Skin Exam Present: intact - Routine Neurological Exam Present: alert, oriented X3 - Routine Psychiatric Exam Present: normal affect, normal thought process - Urinary Catheter Management 3-way Urethral Cath placed during this visit: yes, but has since been removed by the nurse Urethral indwelling: Yes Reason for continuing: Gross Hematuria Insertion date: 02/17/18 Insertion time: 17:45 Removal date: 02/17/18 Removal time: 17:30 Results - Labs CBC & Chem 7: 02/19/18 05:00 02/19/18 05:00 Laboratory Results - last 24 hr 02/18/18 02/18/18 02/18/18 05:00 05:00 05:00 WBC RBC Hgb Hct MCV MCH MCHC RDW Plt Count MPV Prelim Diff (Auto) Neut % (Auto) Lymph % (Auto) [place] % (Auto) Eos % (Auto) Baso % (Auto) Neut # (Auto) Lymph # (Auto) [place] # (Auto) Eos # (Auto) Baso # (Auto) Differential Comment Retic Count 0.9 Absolute Retic 22.8 Sodium Potassium Chloride Carbon Dioxide Anion Gap BUN Creatinine Estimated GFR POC Glucose Random Glucose Calcium Phosphorus Magnesium Iron 32 L TIBC 223 L % Saturation 14.4 L Ferritin 648 H 02/18/18 02/18/18 02/18/18 09:34 12:18 17:14 WBC RBC Hgb Hct MCV MCH MCHC RDW Plt Count MPV Prelim Diff (Auto) Neut % (Auto) Lymph % (Auto) [place] % (Auto) Eos % (Auto) Baso % (Auto) Neut # (Auto) Lymph # (Auto) [place] # (Auto) Eos # (Auto) Baso # (Auto) Differential Comment Retic Count Absolute Retic Sodium Potassium Chloride Carbon Dioxide Anion Gap BUN Creatinine Estimated GFR POC Glucose 198 H 280 H 170 H Random Glucose Calcium Phosphorus Magnesium Iron TIBC % Saturation Ferritin 02/18/18 02/19/18 02/19/18 21:50 01:26 05:00 WBC 3.3 L RBC 2.21 L Hgb 7.1 L Hct 20.9 L* MCV 94.3 MCH 32.0 MCHC 33.9 RDW 13.6 Plt Count 76 L MPV 8.5 Prelim Diff (Auto) Slide review pending Neut % (Auto) 92.1 H Lymph % (Auto) 1.5 L [place] % (Auto) 6.2 Eos % (Auto) 0.1 Baso % (Auto) 0.1 Neut # (Auto) 3.0 Lymph # (Auto) 0.0 L [place] # (Auto) 0.2 Eos # (Auto) 0.0 Baso # (Auto) 0.0 Differential Comment . Retic Count Absolute Retic Sodium Potassium Chloride Carbon Dioxide Anion Gap BUN Creatinine Estimated GFR POC Glucose 196 H 226 H Random Glucose Calcium Phosphorus Magnesium Iron TIBC % Saturation Ferritin 02/19/18 02/19/18 05:00 05:14 WBC RBC Hgb Hct MCV MCH MCHC RDW Plt Count MPV Prelim Diff (Auto) Neut % (Auto) Lymph % (Auto) [place] % (Auto) Eos % (Auto) Baso % (Auto) Neut # (Auto) Lymph # (Auto) [place] # (Auto) Eos # (Auto) Baso # (Auto) Differential Comment Retic Count Absolute Retic Sodium 146 H Potassium 4.1 Chloride 111 H Carbon Dioxide 28.6 Anion Gap 6 BUN 35 H Creatinine 2.28 H Estimated GFR 28 L POC Glucose 150 H Random Glucose 144 H Calcium 8.0 L Phosphorus 3.4 D Magnesium 2.4 Iron TIBC % Saturation Ferritin Assessment and Plan - Assessment (1) HTN (hypertension) Code(s): I10 - Essential (primary) hypertension Status: Acute - Plan Post op Day: 2 Patient: Mr Matthews is 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 US x 2 postop, shows patent vessels. There is also a "clot" noted in the bladder Prophylaxis: Decubitus ulcer: patient awake, alert, and mobile CMV prophylaxis: Not yet started PCP prophylaxis: Not yet started Consults: Transplant Nephrology Urologist Assessment and Plan: S/P DDKT to right iliac fossa. Allograft function: Creatinine decreased to 2.28- will increase prograf to 4 mg bid-await today's level also.. CBI running-hematuria seems to be improving. Decreased number of small clots noted. Hgb low on AM blood draw-recheck pending. Will assess need for transfusion, after resulted. iron/ procrit to be given also.. Abd soft, approp tender. Continue insulin sliding scale. Daily standing weight. B SCDs. Will plan to give 1 mg/kg thymo tomorrow-will hold for today (so far has gotten 2.5 mg/kg of thymo). Flomax started. Stop [employer]-oral analgesic prn. advance diet. stop replacement fluids- continue maintenance IVF Immunosuppression: Thymo induction; Maint: steroids + Cellcept 750 mg BID + prograf (will increase to 4 mg BID today)
[2018-02-19] MEDS ORDERED: Epoetin Alfa Inj 4,000 UNIT/ML Vial SQ ONE (08:29)
[2018-02-19] MEDS ORDERED: Iron Sucrose Inj 100 MG in Sodium Chlor 0.9% Inj 100 ML IV.SIG ONE (08:31)
[2018-02-19] MEDS: Docusate Sodium 100 MG Capsule PO SCH ×2 (08:34→20:57)
[2018-02-19] MEDS: Carvedilol 12.5 MG Tablet PO SCH ×2 (08:34→20:56)
[2018-02-19 08:35] LABS: Hematocrit 22.2 % (39.0-51.0); Hemoglobin 7.6 gm/dL (13.0-17.0)
--- NOTE | 2018-02-19 16:32 | P.PNNP ---
Subjective Interval history: Feeling well, no acute complaints Physical Exam Vital signs: Vital Signs 02/18/18 19:00 02/18/18 20:00 02/18/18 22:50 Temperature 98.2 F Pulse Rate 75 Respiratory Rate 14 Blood Pressure 158/78 H 158/78 H Pulse Oximetry 95 96 02/18/18 23:00 02/19/18 00:00 02/19/18 03:00 Temperature 98.5 F 98.7 F Pulse Rate 73 67 Respiratory Rate 12 14 Blood Pressure 135/63 142/64 H 149/76 H Pulse Oximetry 97 02/19/18 07:00 02/19/18 08:00 02/19/18 11:00 Temperature 98.5 F Pulse Rate 70 65 Respiratory Rate 20 18 Blood Pressure 167/82 H 155/71 H Pulse Oximetry 97 02/19/18 11:43 02/19/18 15:00 Temperature 98.2 F Pulse Rate 68 Respiratory Rate 16 Blood Pressure 152/80 H Pulse Oximetry 96 98 Intake & Output 02/18/18 02/19/18 02/19/18 18:59 06:59 18:59 Intake Total 960 / 960 1000 / 1000 841 / 841 Output Total 99000 / 89473 2536 / 2536 1907 / 1907 Balance -9675 / -9675 -1536 / -1536 -1066 / -1066 Weight 85.2 kg Intake: IV 1000 / 1000 1/2 Normal Saline Inj 1,000 ML 1000 / 1000 @ Titrate IV.CONT .Q0M PRN Rx#: [id number] Oral 960 / 960 841 / 841 Output: Urine Amount (Catheter) 75591 / 72305 2536 / 2536 1907 / 1907 3-way Urethral 52753 / 33474 2536 / 2536 190 / 1907 Other: Bladder Irrigation Fluid - Amount Instilled 3-way Urethral 9,378 800 454 Bladder Irrigation Fluid - Amount Drained 3-way Urethral 11,475 Date of Last Bowel Movement 02/16/18 02/16/18 02/16/18 - Constitutional no acute distress - Routine HEENT Exam Head: Present: normocephalic ENT: Present: mucous membranes moist - Routine Neck Exam Present: supple - Routine Respiratory Exam Present: diminished air movement - Routine Cardiovascular Exam Present: RRR - Routine Abdominal Exam Present: soft - Routine Skin Exam Present: intact - Routine Neurological Exam Present: alert, oriented X3 - Detailed Neurological Exam: Coma Scale Eye Opening: Spontaneous Verbal Response: Oriented - Routine Psychiatric Exam Present: normal affect - Urinary Catheter Management 3-way Urethral Cath placed during this visit: yes, but has since been removed by the nurse Urethral indwelling: Yes Reason for continuing: Gross Hematuria Insertion date: 02/17/18 Insertion time: 17:45 Removal date: 02/17/18 Removal time: 17:30 Assessment and Plan - Plan 1. Post-cadaveric renal transplant. 2. Hypertension. 3. Diabetes mellitus. 4. Anemia and thrombocytopenia. 5. Hypocalcemia and history of hyperparathyroidism. The patient has cadaveric renal transplant done on 02/18/18. The blood pressure is stable. Creatinine improving Getting bladder irrigation with hematuria - 1.9L UOP Immunosuppression: Thymo induction Maint: steroids + Cellcept 750 mg BID + prograf (increased to 4 mg BID today)
[2018-02-19] MEDS: Dextrose 5%/NaCl 0.45% Inj 1,000 ML IV.CONT SCH (17:46)
[2018-02-19 21:31] LABS: Hematocrit 21.2 % (39.0-51.0); Hemoglobin 7.2 gm/dL (13.0-17.0); Mean Corpuscular HGB Conc 33.9 % (32.0-36.0); Mean Corpuscular Hemoglobin 31.8 pg (27.0-34.0); Mean Corpuscular Volume 93.8 fL (80.0-100.0); Mean Platelet Volume 7.7 fL (7.0-11.0); Platelet Count 74 th/mm3 (150-450); Red Blood Count 2.26 mil/mm3 (4.50-5.90); Red Cell Distribution Width 13.7 % (11.6-17.2); White Blood Count 2.7 th/mm3 (4.0-11.0)
[2018-02-19 21:57] LABS: Albumin 3.1 g/dL (3.4-5.0); Anion Gap 5 meq/L (5-15); Aspartate Aminotransferase 12 U/L (15-37); Blood Urea Nitrogen 30 mg/dL (7-18); Calcium 8.3 mg/dL (8.5-10.1); Carbon Dioxide 28.6 meq/L (21.0-32.0); Chloride 114 meq/L (98-107); Glomerular Filtration Rate 39 mL/min (>89); Glucose,Random 146 mg/dL (74-106); Magnesium 2.4 mg/dL (1.5-2.5); Sodium 148 meq/L (136-145)
--- NOTE | 2018-02-19 21:58 | P.PN ---
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 Patient is currently doing well. No acute concerns. Bladder irrigation continues and his urine is getting clearer. No fever, chills. Physical Exam Vital signs: Vital Signs 02/18/18 22:50 02/18/18 23:00 02/19/18 00:00 Temperature 98.5 F Pulse Rate 73 Respiratory Rate 12 Blood Pressure 135/63 142/64 H Pulse Oximetry 96 97 02/19/18 03:00 02/19/18 07:00 02/19/18 08:00 Temperature 98.7 F Pulse Rate 67 70 Respiratory Rate 14 20 Blood Pressure 149/76 H 167/82 H Pulse Oximetry 97 02/19/18 11:00 02/19/18 11:43 02/19/18 15:00 Temperature 98.5 F 98.2 F Pulse Rate 65 68 Respiratory Rate 18 16 Blood Pressure 155/71 H 152/80 H Pulse Oximetry 96 98 Intake & Output 02/19/18 02/19/18 02/20/18 06:59 18:59 06:59 Intake Total 1000 / 1000 1946 / 1946 Output Total 2536 / 2536 2595 / 2595 Balance -1536 / -1536 -649 / -649 Weight 85.2 kg Intake: IV 1000 / 1000 1105 / 1105 D5W/1/2 NS Inj 1,000 ML @ 40 1000 / 1000 mls/hr IV.CONT .Q24H [facility]O Rx#: [id number] 1/2 Normal Saline Inj 1,000 ML 1000 / 1000 @ Titrate IV.CONT .Q0M PRN Rx#: [id number] Venofer Inj 100 MG In NS Inj 105 / 105 100 ML @ 105 mls/hr IV.SIG ONCE ONE Rx#:[id number] Oral 841 / 841 Output: Urine Amount (Catheter) 2536 / 2536 2595 / 2595 3-way Urethral 2536 / 2536 2595 / 2595 Other: Bladder Irrigation Fluid - Amount Instilled 3-way Urethral 800 525 Date of Last Bowel Movement 02/16/18 02/16/18 Narrative: GENERAL: Alert, Oriented x 3, NAD SKIN: Warm and dry. HEAD: Normocephalic. EYES: No scleral icterus. No injection or drainage. NECK: Supple, trachea midline. No JVD or lymphadenopathy. CARDIOVASCULAR: Regular rate and rhythm without murmurs, gallops, or rubs. RESPIRATORY: Breath sounds equal bilaterally. No accessory muscle use. GASTROINTESTINAL: Abdomen soft, non-tender, nondistended. MUSCULOSKELETAL: No cyanosis, or edema. BACK: Nontender without obvious deformity. No CVA tenderness. - Urinary Catheter Management 3-way Urethral Cath placed during this visit: yes, but has since been removed by the nurse Urethral indwelling: Yes Reason for continuing: Gross Hematuria Insertion date: 02/17/18 Insertion time: 17:45 Removal date: 02/17/18 Removal time: 17:30 Results - Labs CBC & Chem 7: 02/19/18 21:15 02/19/18 05:00 Laboratory Results - last 24 hr 02/18/18 02/19/18 02/19/18 21:50 01:26 05:00 WBC 3.3 L RBC 2.21 L Hgb 7.1 L Hct 20.9 L* MCV 94.3 MCH 32.0 MCHC 33.9 RDW 13.6 Plt Count 76 L MPV 8.5 Prelim Diff (Auto) Slide review pending Neut % (Auto) 92.1 H Lymph % (Auto) 1.5 L [place] % (Auto) 6.2 Eos % (Auto) 0.1 Baso % (Auto) 0.1 Neut # (Auto) 3.0 Lymph # (Auto) 0.0 L [place] # (Auto) 0.2 Eos # (Auto) 0.0 Baso # (Auto) 0.0 WBC Differential . Diff Scan Auto diff confirmed Differential Comment . Sodium Potassium Chloride Carbon Dioxide Anion Gap BUN Creatinine Estimated GFR POC Glucose 196 H 226 H Random Glucose Calcium Phosphorus Magnesium Tacrolimus 02/19/18 02/19/18 02/19/18 05:00 05:00 05:14 WBC RBC Hgb Hct MCV MCH MCHC RDW Plt Count MPV Prelim Diff (Auto) Neut % (Auto) Lymph % (Auto) [place] % (Auto) Eos % (Auto) Baso % (Auto) Neut # (Auto) Lymph # (Auto) [place] # (Auto) Eos # (Auto) Baso # (Auto) WBC Differential Diff Scan Differential Comment Sodium 146 H Potassium 4.1 Chloride 111 H Carbon Dioxide 28.6 Anion Gap 6 BUN 35 H Creatinine 2.28 H Estimated GFR 28 L POC Glucose 150 H Random Glucose 144 H Calcium 8.0 L Phosphorus 3.4 D Magnesium 2.4 Tacrolimus Less than 2.0 L 02/19/18 02/19/18 02/19/18 08:15 08:22 11:33 WBC RBC Hgb 7.6 L Hct 22.2 L MCV MCH MCHC RDW Plt Count MPV Prelim Diff (Auto) Neut % (Auto) Lymph % (Auto) [place] % (Auto) Eos % (Auto) Baso % (Auto) Neut # (Auto) Lymph # (Auto) [place] # (Auto) Eos # (Auto) Baso # (Auto) WBC Differential Diff Scan Differential Comment Sodium Potassium Chloride Carbon Dioxide Anion Gap BUN Creatinine Estimated GFR POC Glucose 128 H 277 H Random Glucose Calcium Phosphorus Magnesium Tacrolimus 02/19/18 02/19/18 02/19/18 15:18 20:50 21:15 WBC 2.7 L RBC 2.26 L Hgb 7.2 L Hct 21.2 L MCV 93.8 MCH 31.8 MCHC 33.9 RDW 13.7 Plt Count 74 L MPV 7.7 Prelim Diff (Auto) Neut % (Auto) Lymph % (Auto) [place] % (Auto) Eos % (Auto) Baso % (Auto) Neut # (Auto) Lymph # (Auto) [place] # (Auto) Eos # (Auto) Baso # (Auto) WBC Differential Diff Scan Differential Comment Sodium Potassium Chloride Carbon Dioxide Anion Gap BUN Creatinine Estimated GFR POC Glucose 119 H 158 H Random Glucose Calcium Phosphorus Magnesium Tacrolimus Assessment and Plan - Assessment (1) ESRD (end stage renal disease) Code(s): N18.6 - End stage renal disease Status: Acute (2) HTN (hypertension) Code(s): I10 - Essential (primary) hypertension Status: Acute (3) Diabetes mellitus Code(s): E11.9 - Type 2 diabetes mellitus without complications Status: Chronic - Plan Mr. Matthews is a pleasant 77 year old male with a history of DM, HTN, ESRD on MWF hemodialysis who took a flight to come back to [place] after he was informed for matched kidney for transplant. At the time of this interview, he is hemodynamically stable and remains in good spirit. End stage Renal disease -s/p renal transplant. Currently on Cellcept, Prograf. -Transplant surgery, Urology, Nephrology following. Diabetes mellitus - Controlled with lifestyle modifications. - Will keep him on sliding scale insulin. Goal BG 140-180 in the hospital. - Continue Levemir 5 units QHS. Blood glucose is better controlled now. Hypertension - Currently takes Carvedilol 25mg BID. Full code. Ambulation. Pharmacological DVT prophylaxis per Transplant surgeon.
[2018-02-19 22:07] LABS: Alanine Aminotransferase 15 U/L (12-78); Alkaline Phosphatase 45 U/L (45-117); Total Protein 5.6 g/dL (6.4-8.2)
[2018-02-20] MEDS: Insulin NovoLOG Aspart Correctional Sugar Inj SQ SCH ×6 (01:23→21:29)
[2018-02-20 06:18] LABS: Baso % (Auto) 0.4 % (0.0-2.0); Eos % (Auto) 1.3 % (0.0-4.0); Hematocrit 21.4 % (39.0-51.0); Hemoglobin 7.2 gm/dL (13.0-17.0); Lymph # (Auto) 0.2 th/mm3 (1.0-4.8); Mean Corpuscular HGB Conc 33.8 % (32.0-36.0); Mean Corpuscular Volume 94.6 fL (80.0-100.0); Mean Platelet Volume 7.7 fL (7.0-11.0); Mono # (Auto) 0.2 th/mm3 (0.0-0.9); Mono % (Auto) 7.5 % (0.0-8.0); Neut # (Auto) 1.9 th/mm3 (1.8-7.7); Neut % (Auto) 83.8 % (16.0-70.0); Platelet Count 75 th/mm3 (150-450); Red Blood Count 2.26 mil/mm3 (4.50-5.90); Red Cell Distribution Width 13.9 % (11.6-17.2); White Blood Count 2.3 th/mm3 (4.0-11.0)
[2018-02-20 06:36] LABS: Calcium 8.1 mg/dL (8.5-10.1); Carbon Dioxide 27.6 meq/L (21.0-32.0); Magnesium 2.4 mg/dL (1.5-2.5); Phosphorus 1.8 mg/dL (2.5-4.9); Potassium 3.9 meq/L (3.5-5.1)
[2018-02-20] MEDS: Docusate Sodium 100 MG Capsule PO SCH ×2 (08:06→21:28)
[2018-02-20] MEDS: Carvedilol 12.5 MG Tablet PO SCH ×2 (08:06→21:28)
[2018-02-20] MEDS ORDERED: Morphine Sulfate Inj 2 MG/ML Vial IV.PUSH PRN (08:45)
--- NOTE | 2018-02-20 10:07 | P.PNTS ---
Subjective Interval history: No new c/o. Abbie po well. flatus. No BM Physical Exam Vital signs: Vital Signs 02/19/18 11:00 02/19/18 11:43 02/19/18 15:00 Temperature 98.5 F 98.2 F Pulse Rate 65 68 Respiratory Rate 18 16 Blood Pressure 155/71 H 152/80 H Pulse Oximetry 96 98 02/19/18 20:00 02/19/18 22:57 02/20/18 00:00 Temperature 98.0 F Pulse Rate 75 83 Respiratory Rate 16 Blood Pressure 147/70 H Pulse Oximetry 98 97 02/20/18 04:00 02/20/18 05:09 02/20/18 05:10 Temperature 98.1 F Pulse Rate 74 77 Respiratory Rate 16 16 Blood Pressure 168/80 H Pulse Oximetry 99 02/20/18 08:00 02/20/18 09:00 Temperature 98.2 F Pulse Rate 63 75 Respiratory Rate 16 Blood Pressure 151/57 H Pulse Oximetry 96 Intake & Output 02/19/18 02/20/18 02/20/18 18:59 06:59 18:59 Intake Total 1946 / 1946 720 / 720 Output Total 2595 / 2595 8630 / 8630 419 / 419 Balance -649 / -649 -7910 / -7910 -419 / -419 Weight 84.4 kg Intake: IV 1105 / 1105 D5W/1/2 NS Inj 1,000 ML @ 40 1000 / 1000 mls/hr IV.CONT .Q24H [facility]O Rx#: [id number] Venofer Inj 100 MG In NS Inj 105 / 105 100 ML @ 105 mls/hr IV.SIG ONCE ONE Rx#:[id number] Oral 841 / 841 720 / 720 Output: Urine Amount (Catheter) 2595 / 2595 8630 / 8630 419 / 419 3-way Urethral 2595 / 2595 8630 / 8630 419 / 419 Other: Bladder Irrigation Fluid - Amount Instilled 3-way Urethral 525 500 556 Date of Last Bowel Movement 02/16/18 02/16/18 - Constitutional no acute distress - Routine HEENT Exam Head: Present: normocephalic, atraumatic - Routine Neck Exam Present: supple - Routine Respiratory Exam Present: CTA bilaterally - Routine Cardiovascular Exam Present: RRR, S1, S2 - Routine Abdominal Exam Present: soft, normoactive bowel sounds Comments: Abd soft NT/ ND. Dressing dry/intact. Approp tender. - Routine Extremities Exam Present: pulses intact Comments: Calves soft NT B. No peripheral edema - Routine Neurological Exam Present: alert, oriented X3 - Routine Psychiatric Exam Present: normal affect, normal thought process - Urinary Catheter Management 3-way Urethral Cath placed during this visit: yes, but has since been removed by the nurse Urethral indwelling: Yes Reason for continuing: Gross Hematuria Insertion date: 02/17/18 Insertion time: 17:45 Removal date: 02/17/18 Removal time: 17:30 Results - Labs CBC & Chem 7: 02/20/18 05:45 02/20/18 05:45 Laboratory Results - last 24 hr 02/17/18 02/19/18 02/19/18 02:10 05:00 11:33 WBC RBC Hgb Hct MCV MCH MCHC RDW Plt Count MPV Prelim Diff (Auto) Neut % (Auto) Lymph % (Auto) [place] % (Auto) Eos % (Auto) Baso % (Auto) Neut # (Auto) Lymph # (Auto) [place] # (Auto) Eos # (Auto) Baso # (Auto) Differential Comment Sodium Potassium Chloride Carbon Dioxide Anion Gap BUN Creatinine Estimated GFR POC Glucose 277 H Random Glucose Calcium Phosphorus Magnesium Total Bilirubin AST ALT Alkaline Phosphatase Total Protein Albumin Tacrolimus Less than 2.0 L MTS Gel Crossmatch See Detail 02/19/18 02/19/18 02/19/18 15:18 20:50 21:15 WBC 2.7 L RBC 2.26 L Hgb 7.2 L Hct 21.2 L MCV 93.8 MCH 31.8 MCHC 33.9 RDW 13.7 Plt Count 74 L MPV 7.7 Prelim Diff (Auto) Neut % (Auto) Lymph % (Auto) [place] % (Auto) Eos % (Auto) Baso % (Auto) Neut # (Auto) Lymph # (Auto) [place] # (Auto) Eos # (Auto) Baso # (Auto) Differential Comment Sodium Potassium Chloride Carbon Dioxide Anion Gap BUN Creatinine Estimated GFR POC Glucose 119 H 158 H Random Glucose Calcium Phosphorus Magnesium Total Bilirubin AST ALT Alkaline Phosphatase Total Protein Albumin Tacrolimus MTS Gel Crossmatch 02/19/18 02/20/18 02/20/18 21:15 00:41 05:45 WBC 2.3 L RBC 2.26 L Hgb 7.2 L Hct 21.4 L MCV 94.6 MCH 32.0 MCHC 33.8 RDW 13.9 Plt Count 75 L MPV 7.7 Prelim Diff (Auto) Slide review pending Neut % (Auto) 83.8 H Lymph % (Auto) 7.0 L [place] % (Auto) 7.5 Eos % (Auto) 1.3 Baso % (Auto) 0.4 Neut # (Auto) 1.9 Lymph # (Auto) 0.2 L [place] # (Auto) 0.2 Eos # (Auto) 0.0 Baso # (Auto) 0.0 Differential Comment . Sodium 148 H Potassium 4.0 Chloride 114 H Carbon Dioxide 28.6 Anion Gap 5 BUN 30 H Creatinine 1.71 H Estimated GFR 39 L POC Glucose 123 H Random Glucose 146 H Calcium 8.3 L Phosphorus 2.0 L D Magnesium 2.4 Total Bilirubin 0.3 AST 12 L ALT 15 Alkaline Phosphatase 45 Total Protein 5.6 L Albumin 3.1 L Tacrolimus MTS Gel Crossmatch 02/20/18 02/20/18 02/20/18 05:45 05:46 07:35 WBC RBC Hgb Hct MCV MCH MCHC RDW Plt Count MPV Prelim Diff (Auto) Neut % (Auto) Lymph % (Auto) [place] % (Auto) Eos % (Auto) Baso % (Auto) Neut # (Auto) Lymph # (Auto) [place] # (Auto) Eos # (Auto) Baso # (Auto) Differential Comment Sodium 150 H Potassium 3.9 Chloride 115 H Carbon Dioxide 27.6 Anion Gap 7 BUN 24 H Creatinine 1.41 H Estimated GFR 49 L POC Glucose 99 113 H Random Glucose 104 Calcium 8.1 L Phosphorus 1.8 L Magnesium 2.4 Total Bilirubin AST ALT Alkaline Phosphatase Total Protein Albumin Tacrolimus MTS Gel Crossmatch Assessment and Plan - Assessment (1) HTN (hypertension) Code(s): I10 - Essential (primary) hypertension Status: Acute - Plan Post op Day: 3 Patient: Mr Matthesw is status post DDKT for ESRD secondary to DM/HTN US x 2 postop, shows patent vessels. There is also a "clot" noted in the bladder Prophylaxis: Decubitus ulcer: patient awake, alert, and mobile CMV prophylaxis: Will start valcyte PCP prophylaxis: Will start bactrim Consults: Transplant Nephrology Urologist Assessment and Plan: S/P DDKT to right iliac fossa. Allograft function: Creatinine decreased to 1.41- On prograf to 4 mg bid-await today's level.. CBI running-hematuria seems to continue to improve. Now light pink. Abd soft, approp tender. Continue insulin sliding scale. Daily standing weight. B SCDs. Will plan to give 1 mg/kg thymo today (so far has gotten 2.5 mg/ kg of thymo). On flomax. Oral analgesic prn. Immunosuppression: Thymo induction; Maint: steroids + Cellcept 750 mg BID + prograf 4 mg BID
[2018-02-20 10:12] LABS: Platelet Morphology Normal (Normal)
[2018-02-20] MEDS: Morphine Inj 4 MG/ML Vial IV.PUSH PRN ×2 (11:01→20:02)
[2018-02-20] MEDS: amLODIPine 5 MG Tablet PO SCH (11:22)
[2018-02-20] MEDS ORDERED: MethylPREDNISolone Sod Succinate Inj 125 MG/2 ML Vial IV.SIG ONE (11:30)
[2018-02-20] MEDS ORDERED: Acetaminophen 325 MG Tablet PO ONE (11:30)
[2018-02-20] MEDS ORDERED: ANTITHYMOCYTE IG IV.SIG SCH (12:00)
[2018-02-20] MEDS ORDERED: SODIUM CHLOR 0.9% IV.SIG SCH (12:00)
--- NOTE | 2018-02-20 12:45 | P.PNNP ---
Subjective Interval history: No acute issues Physical Exam Vital signs: Vital Signs 02/19/18 15:00 02/19/18 20:00 02/19/18 22:57 Temperature 98.2 F 98.0 F Pulse Rate 68 75 Respiratory Rate 16 16 Blood Pressure 152/80 H 147/70 H Pulse Oximetry 98 98 97 02/20/18 00:00 02/20/18 04:00 02/20/18 05:09 Temperature 98.1 F Pulse Rate 83 74 77 Respiratory Rate 16 Blood Pressure 168/80 H Pulse Oximetry 99 02/20/18 05:10 02/20/18 08:00 02/20/18 09:00 Temperature 98.2 F Pulse Rate 63 75 Respiratory Rate 16 16 Blood Pressure 151/57 H Pulse Oximetry 96 02/20/18 12:00 Temperature 98.1 F Pulse Rate 66 Respiratory Rate 16 Blood Pressure 158/71 H Pulse Oximetry Intake & Output 02/19/18 02/20/18 02/20/18 18:59 06:59 18:59 Intake Total 1946 / 1946 720 / 720 Output Total 2595 / 2595 8630 / 8630 700 / 700 Balance -649 / -649 -7910 / -7910 -700 / -700 Weight 84.4 kg Intake: IV 1105 / 1105 D5W/1/2 NS Inj 1,000 ML @ 40 1000 / 1000 mls/hr IV.CONT .Q24H [facility] Rx#: [id number] Venofer Inj 100 MG In NS Inj 105 / 105 100 ML @ 105 mls/hr IV.SIG ONCE ONE Rx#:[id number] Oral 841 / 841 720 / 720 Output: Urine Amount (Catheter) 2595 / 2595 8630 / 8630 700 / 700 3-way Urethral 2595 / 2595 8630 / 8630 700 / 700 Other: Bladder Irrigation Fluid - Amount Instilled 3-way Urethral 525 500 571 Date of Last Bowel Movement 02/16/18 02/16/18 - Constitutional no acute distress - Routine HEENT Exam Head: Present: normocephalic Eye: Present: EOMI ENT: Present: mucous membranes moist - Routine Neck Exam Present: supple - Routine Respiratory Exam Present: CTA bilaterally - Routine Cardiovascular Exam Present: RRR - Routine Abdominal Exam Present: soft - Routine Skin Exam Present: intact - Routine Neurological Exam Present: alert, oriented X3 - Routine Psychiatric Exam Present: normal affect - Urinary Catheter Management 3-way Urethral Cath placed during this visit: yes, but has since been removed by the nurse Urethral indwelling: Yes Reason for continuing: Gross Hematuria Insertion date: 02/17/18 Insertion time: 17:45 Removal date: 02/17/18 Removal time: 17:30 Assessment and Plan - Plan 1. Post-cadaveric renal transplant. 2. Hypertension. 3. Diabetes mellitus. 4. Anemia and thrombocytopenia. 5. Hypocalcemia and history of hyperparathyroidism. The patient has cadaveric renal transplant done on 02/18/18. Creatinine improving with good UOP Getting bladder irrigation with hematuria - improving. On flomax Ongoing HTN - started on norvasc 5mg daily today. Immunosuppression: Thymo induction; Maint: steroids + Cellcept 750 mg BID + prograf 4 mg BID
--- NOTE | 2018-02-20 15:16 | P.PN ---
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 Patient is sitting in his chair. Doing well. CBI in progress, urine color is getting clearer. No fever , chills. Physical Exam Vital signs: Vital Signs 02/19/18 20:00 02/19/18 22:57 02/20/18 00:00 Temperature 98.0 F Pulse Rate 75 83 Respiratory Rate 16 Blood Pressure 147/70 H Pulse Oximetry 98 97 02/20/18 04:00 02/20/18 05:09 02/20/18 05:10 Temperature 98.1 F Pulse Rate 74 77 Respiratory Rate 16 16 Blood Pressure 168/80 H Pulse Oximetry 99 02/20/18 08:00 02/20/18 09:00 02/20/18 12:00 Temperature 98.2 F 98.1 F Pulse Rate 63 75 66 Respiratory Rate 16 16 Blood Pressure 151/57 H 158/71 H Pulse Oximetry 96 96 02/20/18 13:00 02/20/18 13:06 Temperature Pulse Rate 70 Respiratory Rate 16 Blood Pressure Pulse Oximetry Intake & Output 02/19/18 02/20/18 02/20/18 18:59 06:59 18:59 Intake Total 1946 / 1946 720 / 720 Output Total 2595 / 2595 8630 / 8630 900 / 900 Balance -649 / -649 -7910 / -7910 -900 / -900 Weight 84.4 kg Intake: IV 1105 / 1105 D5W/1/2 NS Inj 1,000 ML @ 40 1000 / 1000 mls/hr IV.CONT .Q24H [facility]O Rx#: [id number] Venofer Inj 100 MG In NS Inj 105 / 105 100 ML @ 105 mls/hr IV.SIG ONCE ONE Rx#:[id number] Oral 841 / 841 720 / 720 Output: Urine Amount (Catheter) 2595 / 2595 8630 / 8630 900 / 900 3-way Urethral 2595 / 2595 8630 / 8630 900 / 900 Other: Bladder Irrigation Fluid - Amount Instilled 3-way Urethral 525 500 480 Date of Last Bowel Movement 02/16/18 02/16/18 - Urinary Catheter Management 3-way Urethral Cath placed during this visit: yes, but has since been removed by the nurse Urethral indwelling: Yes Reason for continuing: Gross Hematuria Insertion date: 02/17/18 Insertion time: 17:45 Removal date: 02/17/18 Removal time: 17:30 Results - Labs CBC & Chem 7: 02/20/18 05:45 02/20/18 05:45 Laboratory Results - last 24 hr 02/17/18 02/19/18 02/19/18 02:10 15:18 20:50 WBC RBC Hgb Hct MCV MCH MCHC RDW Plt Count MPV Prelim Diff (Auto) Neut % (Auto) Lymph % (Auto) [place] % (Auto) Eos % (Auto) Baso % (Auto) Neut # (Auto) Lymph # (Auto) [place] # (Auto) Eos # (Auto) Baso # (Auto) WBC Differential Diff Scan Differential Comment Platelet Estimate Platelet Morphology Sodium Potassium Chloride Carbon Dioxide Anion Gap BUN Creatinine Estimated GFR POC Glucose 119 H 158 H Random Glucose Calcium Phosphorus Magnesium Total Bilirubin AST ALT Alkaline Phosphatase Total Protein Albumin Tacrolimus MTS Gel Crossmatch See Detail 02/19/18 02/19/18 02/20/18 21:15 21:15 00:41 WBC 2.7 L RBC 2.26 L Hgb 7.2 L Hct 21.2 L MCV 93.8 MCH 31.8 MCHC 33.9 RDW 13.7 Plt Count 74 L MPV 7.7 Prelim Diff (Auto) Neut % (Auto) Lymph % (Auto) [place] % (Auto) Eos % (Auto) Baso % (Auto) Neut # (Auto) Lymph # (Auto) [place] # (Auto) Eos # (Auto) Baso # (Auto) WBC Differential Diff Scan Differential Comment Platelet Estimate Platelet Morphology Sodium 148 H Potassium 4.0 Chloride 114 H Carbon Dioxide 28.6 Anion Gap 5 BUN 30 H Creatinine 1.71 H Estimated GFR 39 L POC Glucose 123 H Random Glucose 146 H Calcium 8.3 L Phosphorus 2.0 L D Magnesium 2.4 Total Bilirubin 0.3 AST 12 L ALT 15 Alkaline Phosphatase 45 Total Protein 5.6 L Albumin 3.1 L Tacrolimus MTS Gel Crossmatch 02/20/18 02/20/18 02/20/18 05:45 05:45 05:45 WBC 2.3 L RBC 2.26 L Hgb 7.2 L Hct 21.4 L MCV 94.6 MCH 32.0 MCHC 33.8 RDW 13.9 Plt Count 75 L MPV 7.7 Prelim Diff (Auto) Slide review pending Neut % (Auto) 83.8 H Lymph % (Auto) 7.0 L [place] % (Auto) 7.5 Eos % (Auto) 1.3 Baso % (Auto) 0.4 Neut # (Auto) 1.9 Lymph # (Auto) 0.2 L [place] # (Auto) 0.2 Eos # (Auto) 0.0 Baso # (Auto) 0.0 WBC Differential . Diff Scan Auto diff confirmed Differential Comment . Platelet Estimate Low L Platelet Morphology Normal Sodium 150 H Potassium 3.9 Chloride 115 H Carbon Dioxide 27.6 Anion Gap 7 BUN 24 H Creatinine 1.41 H Estimated GFR 49 L POC Glucose Random Glucose 104 Calcium 8.1 L Phosphorus 1.8 L Magnesium 2.4 Total Bilirubin AST ALT Alkaline Phosphatase Total Protein Albumin Tacrolimus 3.7 L MTS Gel Crossmatch 02/20/18 02/20/18 02/20/18 05:46 07:35 11:47 WBC RBC Hgb Hct MCV MCH MCHC RDW Plt Count MPV Prelim Diff (Auto) Neut % (Auto) Lymph % (Auto) [place] % (Auto) Eos % (Auto) Baso % (Auto) Neut # (Auto) Lymph # (Auto) [place] # (Auto) Eos # (Auto) Baso # (Auto) WBC Differential Diff Scan Differential Comment Platelet Estimate Platelet Morphology Sodium Potassium Chloride Carbon Dioxide Anion Gap BUN Creatinine Estimated GFR POC Glucose 99 113 H 185 H Random Glucose Calcium Phosphorus Magnesium Total Bilirubin AST ALT Alkaline Phosphatase Total Protein Albumin Tacrolimus MTS Gel Crossmatch 02/20/18 15:11 WBC RBC Hgb Hct MCV MCH MCHC RDW Plt Count MPV Prelim Diff (Auto) Neut % (Auto) Lymph % (Auto) [place] % (Auto) Eos % (Auto) Baso % (Auto) Neut # (Auto) Lymph # (Auto) [place] # (Auto) Eos # (Auto) Baso # (Auto) WBC Differential Diff Scan Differential Comment Platelet Estimate Platelet Morphology Sodium Potassium Chloride Carbon Dioxide Anion Gap BUN Creatinine Estimated GFR POC Glucose 209 H Random Glucose Calcium Phosphorus Magnesium Total Bilirubin AST ALT Alkaline Phosphatase Total Protein Albumin Tacrolimus MTS Gel Crossmatch Assessment and Plan - Assessment (1) ESRD (end stage renal disease) Code(s): N18.6 - End stage renal disease Status: Acute (2) HTN (hypertension) Code(s): I10 - Essential (primary) hypertension Status: Acute (3) Diabetes mellitus Code(s): E11.9 - Type 2 diabetes mellitus without complications Status: Chronic - Plan Mr. Matthews is a pleasant 77 year old male with a history of DM, HTN, ESRD on MWF hemodialysis who took a flight to come back to [place] after he was informed for matched kidney for transplant. At the time of this interview, he is hemodynamically stable and remains in good spirit. End stage Renal disease -s/p renal transplant. Currently on Cellcept, Prograf. -Transplant surgery, Urology, Nephrology following. Diabetes mellitus - Controlled with lifestyle modifications. - Will keep him on sliding scale insulin. Goal BG 140-180 in the hospital. - Increase Levemir 5 units QHS. Hypertension - Currently Carvedilol 25mg BID and Amlodipine 5mg Qday. Full code. Ambulation. Pharmacological DVT prophylaxis per Transplant surgeon.
[2018-02-20] MEDS ORDERED: Bisacodyl 10 MG Supp RECTAL PRN (16:02)
[2018-02-20] MEDS: Dextrose 5%/NaCl 0.45% Inj 1,000 ML IV.CONT SCH (17:54)
[2018-02-20] MEDS: Insulin Detemir Inj 1,000 UNIT/10 ML Vial SQ SCH (21:30)
[2018-02-21] MEDS: Insulin NovoLOG Aspart Correctional Sugar Inj SQ SCH ×6 (00:06→23:58)
[2018-02-21 04:39] LABS: Baso % (Auto) 0.3 % (0.0-2.0); Eos % (Auto) 0.1 % (0.0-4.0); Hemoglobin 7.1 gm/dL (13.0-17.0); Lymph # (Auto) 0.1 th/mm3 (1.0-4.8); Lymph % (Auto) 4.1 % (9.0-44.0); Mean Corpuscular Hemoglobin 31.8 pg (27.0-34.0); Mean Corpuscular Volume 93.6 fL (80.0-100.0); Mean Platelet Volume 8.1 fL (7.0-11.0); Mono # (Auto) 0.2 th/mm3 (0.0-0.9); Mono % (Auto) 7.7 % (0.0-8.0); Neut # (Auto) 1.9 th/mm3 (1.8-7.7); Neut % (Auto) 87.8 % (16.0-70.0); Platelet Count 83 th/mm3 (150-450); Red Blood Count 2.22 mil/mm3 (4.50-5.90); Red Cell Distribution Width 13.8 % (11.6-17.2); White Blood Count 2.2 th/mm3 (4.0-11.0)
[2018-02-21 04:53] LABS: Calcium 8.5 mg/dL (8.5-10.1); Carbon Dioxide 27.9 meq/L (21.0-32.0); Magnesium 2.4 mg/dL (1.5-2.5); Potassium 4.2 meq/L (3.5-5.1)
[2018-02-21 04:54] LABS: Hematocrit 20.8 % (39.0-51.0); Phosphorus 1.4 mg/dL (2.5-4.9)
[2018-02-21 05:15] LABS: Ovalocytes 1+; Platelet Morphology Normal (Normal)
[2018-02-21] MEDS: Carvedilol 12.5 MG Tablet PO SCH ×2 (08:25→20:48)
[2018-02-21] MEDS: Docusate Sodium 100 MG Capsule PO SCH (08:26)
[2018-02-21] MEDS: amLODIPine 5 MG Tablet PO SCH (08:27)
[2018-02-21 10:45] LABS: Hematocrit 25.5 % (39.0-51.0); Hemoglobin 8.4 gm/dL (13.0-17.0)
[2018-02-21] MEDS: Potassium Phos/Sodium Phos 250 MG Tablet PO SCH ×2 (11:28→23:53)
--- NOTE | 2018-02-21 12:52 | P.PNURO ---
Subjective Patient symptoms today: Pt seen and examind. OOB to chair. Urine is clear. Objective Vital Signs: Vital Signs 02/20/18 13:00 02/20/18 13:06 02/20/18 15:52 Temperature Pulse Rate 70 65 Respiratory Rate 16 Blood Pressure Pulse Oximetry 02/20/18 16:00 02/20/18 17:03 02/20/18 17:35 Temperature 98.0 F Pulse Rate 73 Respiratory Rate 16 16 Blood Pressure 155/70 H Pulse Oximetry 97 02/20/18 19:00 02/20/18 20:00 02/20/18 20:58 Temperature 97.8 F Pulse Rate 72 71 Respiratory Rate 16 Blood Pressure 165/79 H Pulse Oximetry 98 97 02/20/18 23:15 02/21/18 00:53 02/21/18 03:00 Temperature 98.0 F 98.0 F Pulse Rate 72 72 63 Respiratory Rate 15 15 Blood Pressure 161/74 H 147/62 H Pulse Oximetry 97 95 02/21/18 07:00 02/21/18 09:34 02/21/18 11:00 Temperature 98.1 F Pulse Rate 65 Respiratory Rate 16 Blood Pressure 169/76 H Pulse Oximetry 98 98 97 Intake & Output 02/20/18 02/21/18 02/21/18 18:59 06:59 18:59 Intake Total 1500 / 1500 480 / 480 Output Total 1951 4960 / 4960 697 / 697 Balance -452 / -452 -4480 / -4480 -697 / -697 Weight 86.3 kg 83.5 kg Intake: IV 1500 / 1500 480 / 480 D5W/1/2 NS Inj 1,000 ML @ 40 1000 / 1000 480 / 480 mls/hr IV.CONT .Q24H [facility] Rx#: [id number] Thymoglobulin Inj 85 MG In NS 500 / 500 Inj 500 ML @ 125 mls/hr IV.SIG NOW [facility] Rx#:[id number] Output: Urine Amount (Catheter) 1951 4960 / 4960 697 / 697 3-way Urethral 1951 4960 / 4960 697 / 697 Other: Bladder Irrigation Fluid - Amount Instilled 3-way Urethral 451 300 280 Bladder Irrigation Fluid - Amount Drained 3-way Urethral 570 Date of Last Bowel Movement 02/21/18 # Bowel Movements 1 Result Diagrams: 02/21/18 10:18 02/21/18 03:32 Medications and IVs: Active Medications Generic Name Dose Route Start Last Admin Trade Name Freq PRN Reason Stop Dose Admin Al Hydroxide/Mg Hydroxide 30 ml 02/17/18 01:28 02/21/18 08:25 Milk Of Magnesia Liq PO 30 ml Q12H PRN Administration Mild Constipation Albuterol 1 ampul 02/17/18 16:02 Duoneb Neb (Prn) NEB Q6HR NEB PRN WHEEZING Amlodipine Besylate 5 mg 02/20/18 11:00 02/21/18 08:27 Norvasc PO 5 mg DAILY MAR[facility]O Administration Bisacodyl 10 mg 02/20/18 16:02 Dulcolax Supp RECTAL PRN PRN CONSTIPATION Carvedilol 25 mg 02/17/18 09:00 02/21/18 08:25 Coreg PO 25 mg BID [facility]CI[facility]O Administration Dextrose 50 ml 02/18/18 09:43 D50w Vial IV.PUSH UNSCH PRN PER HYPOGLYCEMIA PROTOCOL Diphenhydramine HCl 25 mg 02/17/18 16:02 Benadryl PO Q6H PRN ITCHING Diphenhydramine HCl 25 mg 02/17/18 16:02 Benadryl Inj IV.PUSH Q6H PRN ITCHING Docusate Sodium 100 mg 02/17/18 21:00 02/21/18 08:26 Colace PO 100 mg BID [facility] Administration Epinephrine HCl 0.1 mg 02/18/18 09:12 Epinephrine (1:10,000) Inj IV.PUSH ONCE PRN SBP<70 OR RESPIRATORY DISTRESS Glucagon 1 mg 02/18/18 09:43 Glucagon Inj OTHER PRN PRN for Hypoglycemia Protocol Dextrose/Sodium Chloride 1,000 mls @ 40 mls/hr 02/17/18 16:15 02/21/18 06:25 D5w/1/2 Ns Inj IV.CONT 40 mls/hr .Q24H [facility] Infusion Ondansetron HCl 8 mg/ Dextrose 54 mls @ 200 mls/hr 02/17/18 16:02 IV.SIG ONCE PRN MILD NAUSEA Insulin Aspart 0 unit 02/19/18 04:00 02/21/18 08:44 Novolog Insulin Suppl Scale Inj SQ 2 unit Q4HR [facility] Administration Protocol Insulin Detemir 5 unit 02/18/18 21:45 02/20/18 21:30 Levemir Inj SQ 5 unit HS [facility] Administration Lactulose 30 ml 02/17/18 01:28 Lactulose Liq PO DAILY PRN SEVERE CONSITIPATION Lidocaine HCl 5 ml 02/17/18 21:30 Xylocaine 2% Jelly OTHER ONCE [facility]O Morphine Sulfate 2 mg 02/20/18 10:53 02/20/18 20:02 Morphine Inj IV.PUSH 2 mg Q4H PRN Administration ACUTE PAIN Mycophenolate Mofetil 750 mg 02/18/18 06:00 02/21/18 06:02 Cellcept PO 750 mg BID@0600,1800 [facility] Administration Naloxone HCl 0.4 mg 02/17/18 20:58 Narcan Inj IV.PUSH PRN PRN Resp rate < 10 Ondansetron HCl 4 mg 02/17/18 16:02 Zofran Inj IV.PUSH Q6H PRN MILD NAUSEA Oxycodone/Acetaminophen 1 tab 02/19/18 08:28 02/20/18 06:04 Percocet 5/325 Mg PO 1 tab Q6H PRN Administration ABDOMINAL PAIN Pantoprazole Sodium 40 mg 02/18/18 09:00 02/21/18 08:27 Protonix PO 40 mg DAILY [facility]O Administration Potassium Phos/Sodium Phos 250 mg 02/21/18 09:00 02/21/18 11:28 K-Phos Neutral PO 250 mg BID [facility] Administration Sennosides 17.2 mg 02/17/18 01:28 02/21/18 08:26 Senokot PO 17.2 mg Q12H PRN Administration Moderate Constipation Tacrolimus 6 mg 02/20/18 18:00 02/21/18 06:03 Prograf PO 6 mg BID@0600,1800 [facility] Administration Tamsulosin HCl 0.4 mg 02/19/18 09:00 02/21/18 08:26 Flomax PO 0.4 mg DAILY [facility] Administration Temazepam 15 mg 02/17/18 01:28 Restoril PO HS PRN INSOMNIA Objective Remarks: Abd: soft,nt,nd Arellano on CBI: pink in color 02/21 Abd:soft,nt,nd Arellano with clear urine. CBI off Assessment and Plan - Plan 77 y.o male s/p KTX with gross hematuria Recommend manually irrigating arellano Q6 hours to make sure there is no clot buildup. If so, recommend changing up to 20F [address] way Continue CBI. 02/21 77 y.o male s/p KTX with gross hematuria. Hematuria resolving. CBI off. Void trial in AM.
[2018-02-21] MEDS ORDERED: MethylPREDNISolone Sod Succinate Inj 40 MG/ML Vial IV.PUSH ONE (13:00)
[2018-02-21] MEDS ORDERED: Acetaminophen 325 MG Tablet PO ONE (13:30)
[2018-02-21] MEDS ORDERED: ANTITHYMOCYTE IG IV.SIG ONE (14:00)
[2018-02-21] MEDS ORDERED: SODIUM CHLOR 0.9% IV.SIG ONE (14:00)
--- NOTE | 2018-02-21 14:17 | P.PNTS ---
Subjective Interval history: No new c/o. Pain well controlled. Abbie po. +BM Physical Exam Vital signs: Vital Signs 02/20/18 15:52 02/20/18 16:00 02/20/18 17:03 Temperature 98.0 F Pulse Rate 65 73 Respiratory Rate 16 Blood Pressure 155/70 H Pulse Oximetry 97 02/20/18 17:35 02/20/18 19:00 02/20/18 20:00 Temperature 97.8 F Pulse Rate 72 71 Respiratory Rate 16 16 Blood Pressure 165/79 H Pulse Oximetry 98 02/20/18 20:58 02/20/18 23:15 02/21/18 00:53 Temperature 98.0 F Pulse Rate 72 72 Respiratory Rate 15 Blood Pressure 161/74 H Pulse Oximetry 97 97 02/21/18 03:00 02/21/18 07:00 02/21/18 09:34 Temperature 98.0 F 98.1 F Pulse Rate 63 65 Respiratory Rate 15 16 Blood Pressure 147/62 H 169/76 H Pulse Oximetry 95 98 98 02/21/18 11:00 Temperature Pulse Rate Respiratory Rate Blood Pressure Pulse Oximetry 97 Intake & Output 02/20/18 02/21/18 02/21/18 18:59 06:59 18:59 Intake Total 1500 / 1500 480 / 480 Output Total 1951 4960 / 4960 822 / 822 Balance -452 / -452 -4480 / -4480 -822 / -822 Weight 86.3 kg 83.5 kg Intake: IV 1500 / 1500 480 / 480 D5W/1/2 NS Inj 1,000 ML @ 40 1000 / 1000 480 / 480 mls/hr IV.CONT .Q24H [facility]O Rx#: [id number] Thymoglobulin Inj 85 MG In NS 500 / 500 Inj 500 ML @ 125 mls/hr IV.SIG NOW [facility]O Rx#:[id number] Output: Urine Amount (Catheter) 1951 4960 / 4960 822 / 822 3-way Urethral 1951 4960 / 4960 822 / 822 Other: Bladder Irrigation Fluid - Amount Instilled 3-way Urethral 451 300 99 Bladder Irrigation Fluid - Amount Drained 3-way Urethral 75 Date of Last Bowel Movement 02/21/18 # Bowel Movements 1 5 - Constitutional no acute distress - Routine HEENT Exam Head: Present: normocephalic, atraumatic Eye: Present: EOMI - Routine Neck Exam Present: supple - Routine Respiratory Exam Present: CTA bilaterally - Routine Abdominal Exam Present: soft, normoactive bowel sounds Comments: abd soft, approp tender, ND. wound cdi wthout eft - Routine Exam Comments: urine in catheter tubing seems clear with no obvious clots - Routine Extremities Exam Present: pulses intact - Routine Skin Exam Present: intact - Routine Neurological Exam Present: alert, oriented X3 - Routine Psychiatric Exam Present: normal affect, normal thought process - Urinary Catheter Management 3-way Urethral Cath placed during this visit: yes, but has since been removed by the nurse Urethral indwelling: Yes Reason for continuing: Gross Hematuria Insertion date: 02/17/18 Insertion time: 17:45 Removal date: 02/17/18 Removal time: 17:30 Results - Labs CBC & Chem 7: 02/21/18 10:18 02/21/18 03:32 Laboratory Results - last 24 hr 02/20/18 02/20/18 02/20/18 15:11 21:05 23:58 WBC RBC Hgb Hct MCV MCH MCHC RDW Plt Count MPV Prelim Diff (Auto) Neut % (Auto) Lymph % (Auto) [place] % (Auto) Eos % (Auto) Baso % (Auto) Neut # (Auto) Lymph # (Auto) [place] # (Auto) Eos # (Auto) Baso # (Auto) WBC Differential Diff Scan Differential Comment Platelet Estimate Platelet Morphology Ovalocytes Sodium Potassium Chloride Carbon Dioxide Anion Gap BUN Creatinine Estimated GFR POC Glucose 209 H 243 H 213 H Random Glucose Calcium Phosphorus Magnesium Tacrolimus 02/21/18 02/21/18 02/21/18 03:30 03:32 03:32 WBC 2.2 L RBC 2.22 L Hgb 7.1 L Hct 20.8 L* MCV 93.6 MCH 31.8 MCHC 34.0 RDW 13.8 Plt Count 83 L MPV 8.1 Prelim Diff (Auto) Slide review pending Neut % (Auto) 87.8 H Lymph % (Auto) 4.1 L [place] % (Auto) 7.7 Eos % (Auto) 0.1 Baso % (Auto) 0.3 Neut # (Auto) 1.9 Lymph # (Auto) 0.1 L [place] # (Auto) 0.2 Eos # (Auto) 0.0 Baso # (Auto) 0.0 WBC Differential . Diff Scan Auto diff confirmed Differential Comment . Platelet Estimate Low L Platelet Morphology Normal Ovalocytes 1+ H Sodium 148 H Potassium 4.2 Chloride 114 H Carbon Dioxide 27.9 Anion Gap 6 BUN 22 H Creatinine 1.25 Estimated GFR 56 L POC Glucose 152 H Random Glucose 142 H Calcium 8.5 Phosphorus 1.4 L Magnesium 2.4 Tacrolimus 02/21/18 02/21/18 02/21/18 03:32 08:36 10:18 WBC RBC Hgb 8.4 L Hct 25.5 L MCV MCH MCHC RDW Plt Count MPV Prelim Diff (Auto) Neut % (Auto) Lymph % (Auto) [place] % (Auto) Eos % (Auto) Baso % (Auto) Neut # (Auto) Lymph # (Auto) [place] # (Auto) Eos # (Auto) Baso # (Auto) WBC Differential Diff Scan Differential Comment Platelet Estimate Platelet Morphology Ovalocytes Sodium Potassium Chloride Carbon Dioxide Anion Gap BUN Creatinine Estimated GFR POC Glucose 152 H Random Glucose Calcium Phosphorus Magnesium Tacrolimus 14.4 02/21/18 12:15 WBC RBC Hgb Hct MCV MCH MCHC RDW Plt Count MPV Prelim Diff (Auto) Neut % (Auto) Lymph % (Auto) [place] % (Auto) Eos % (Auto) Baso % (Auto) Neut # (Auto) Lymph # (Auto) [place] # (Auto) Eos # (Auto) Baso # (Auto) WBC Differential Diff Scan Differential Comment Platelet Estimate Platelet Morphology Ovalocytes Sodium Potassium Chloride Carbon Dioxide Anion Gap BUN Creatinine Estimated GFR POC Glucose 139 H Random Glucose Calcium Phosphorus Magnesium Tacrolimus Assessment and Plan - Assessment (1) HTN (hypertension) Code(s): I10 - Essential (primary) hypertension Status: Acute - Plan Post op Day: 3 Patient: Mr Matthews is status post DDKT for ESRD secondary to DM/HTN US x 2 postop, shows patent vessels. There is also a "clot" noted in the bladder Prophylaxis: Decubitus ulcer: patient awake, alert, and mobile CMV prophylaxis: ont valcyte PCP prophylaxis: on bactrim Consults: Transplant Nephrology Urologist Assessment and Plan: S/P DDKT to right iliac fossa. Allograft function: Creatinine decreased to 1.41- On prograf 6 mg bid-since yesterday.. CBI stopped-hematuria seems better- probable arellano out in AM-- appreciate urology input. Abd soft, approp tender. Continue insulin sliding scale. Daily standing weight. B SCDs. Will plan to give 1 mg/kg thymo today - last dose. On flomax. Oral analgesic prn. Immunosuppression: Thymo induction; Maint: steroids + Cellcept 750 mg BID + prograf 6 mg BID
--- NOTE | 2018-02-21 14:19 | P.DIET ---
Nutritional Evaluation Type of nutrition evaluation: follow-up Screening comments: Nutrition Assessment f/u and initial nutrition education for DDKT pt Subjective Subjective Comments: Pt states he feels good and is eating well. Objective - Diagnosis Kidney Transplant - Objective % IBW: 104 Body Weight Used for Calculations: Actual Energy Needs - Lower Range (kCal/kg): 25 Energy Needs - Upper Range (kCal/kg): 30 Lower Limit kCal/kg (kCals): 2,100 Upper Limit kCal/kg (kCals): 2,520 Lower Limit Protein Factor (Grams per Kg): 1.2 Upper Limit Protein Factor (Grams per Kg): 1.3 Lower Protein Needs (Protein): 101 Upper Protein Needs (Protein): 111 Fluid Factor (ml/kg): 30 Estimated Fluid Needs (ml): 2,520 Dietitian Reviewed in Medical Record: Current diet, Curent medications, Intake & Output, Labs, Medical history Diet Order: 2199 ADA Objective Comments: Nutritional needs based on 84kg PMH: DM, Hyperparathyroidism, Melanoma, PNA, Neuropathy, HTN Labs include: K+ 4.7, Cr 1.25, Glu 142, POC 243,213, 152, Phos 1.4 UOP: 1210mls, +1 BM Assessment Assessment: Pt s/p DDKT POD #4. Pt's kidney is working well, good UOP, Cr and K+ are within normal limits, phosphorus is low. Reviewed in detail the post-transplant educational materials to both pt and significant other. Provided additional literature on high phosphorus foods to incorporate into pt's diet. Stressed the importance of drinking 2-3L of fliud/day. Discussed the possible effects of medications on glucose, potassium, calcium and magnesium levels. Answered many questions. Pt's caregiver is able to verbalize nutrition guidelines well. Recommendations: Pt on 2200 ADA diet Kidney functioning well Indepth nutrition education provided to pt and caregiver Continue to follow with transplant team and provide services to pt after discharge in outpatient clinic. Dietitian to Monitor: Lab values, Renal labs, Intake & Output, Weight change, PO Intake, Medical course
--- NOTE | 2018-02-21 16:04 | P.PNNP ---
Subjective Interval history: Patient is alert, now sitting on the chair, no SOB, mild abd. discomfort. Physical Exam Vital signs: Vital Signs 02/20/18 17:03 02/20/18 17:35 02/20/18 19:00 Temperature Pulse Rate 72 Respiratory Rate 16 Blood Pressure Pulse Oximetry 97 02/20/18 20:00 02/20/18 20:58 02/20/18 23:15 Temperature 97.8 F Pulse Rate 71 72 Respiratory Rate 16 Blood Pressure 165/79 H Pulse Oximetry 98 97 02/21/18 00:53 02/21/18 03:00 02/21/18 07:00 Temperature 98.0 F 98.0 F 98.1 F Pulse Rate 72 63 65 Respiratory Rate 15 15 16 Blood Pressure 161/74 H 147/62 H 169/76 H Pulse Oximetry 97 95 98 02/21/18 09:34 02/21/18 11:00 02/21/18 15:00 Temperature 98.0 F 98.3 F Pulse Rate 68 68 Respiratory Rate 18 18 Blood Pressure 156/68 H 158/70 H Pulse Oximetry 98 97 98 Intake & Output 02/20/18 02/21/18 02/21/18 18:59 06:59 18:59 Intake Total 1500 / 1500 480 / 480 Output Total 1951 4960 / 4960 1272 / 1272 Balance -452 / -452 -4480 / -4480 -1272 / -1272 Weight 86.3 kg 83.5 kg Intake: IV 1500 / 1500 480 / 480 D5W/1/2 NS Inj 1,000 ML @ 40 1000 / 1000 480 / 480 mls/hr IV.CONT .Q24H [facility]O Rx#: [id number] Thymoglobulin Inj 85 MG In NS 500 / 500 Inj 500 ML @ 125 mls/hr IV.SIG NOW [facility]ANO Rx#:[id number] Output: Urine Amount (Catheter) 1951 4960 / 4960 1272 / 1272 3-way Urethral 1951 4960 / 4960 1272 / 1272 Other: Bladder Irrigation Fluid - Amount Instilled 3-way Urethral 451 300 0 Bladder Irrigation Fluid - Amount Drained 3-way Urethral 60 Date of Last Bowel Movement 02/21/18 # Bowel Movements 1 1 Narrative: GENERAL: Alert, Oriented x 3, NAD SKIN: Warm and dry. HEAD: Normocephalic. EYES: No scleral icterus. No injection or drainage. NECK: Supple, trachea midline. No JVD or lymphadenopathy. CARDIOVASCULAR: Regular rate and rhythm without murmurs, gallops, or rubs. RESPIRATORY: Breath sounds equal bilaterally. No accessory muscle use. GASTROINTESTINAL: Abdomen soft, non-tender, nondistended. MUSCULOSKELETAL: No cyanosis, or edema. BACK: Nontender without obvious deformity. No CVA tenderness. - Constitutional no acute distress - Routine HEENT Exam Head: Present: normocephalic - Routine Neck Exam Present: supple - Routine Respiratory Exam Present: decreased breath sounds, CTA bilaterally - Routine Cardiovascular Exam Present: RRR, S1, S2 - Routine Abdominal Exam Present: soft, normoactive bowel sounds, distended - Routine Extremities Exam Present: edema - Routine Skin Exam Present: intact - Routine Neurological Exam Present: alert, oriented X3 - Detailed Neurological Exam: Coma Scale Verbal Response: Oriented - Urinary Catheter Management 3-way Urethral Cath placed during this visit: yes, but has since been removed by the nurse Urethral indwelling: Yes Reason for continuing: Gross Hematuria Insertion date: 02/17/18 Insertion time: 17:45 Removal date: 02/17/18 Removal time: 17:30 Assessment and Plan - Plan 77-year-old male with a past medical history of hypertension, diabetes mellitus, end-stage renal disease on hemodialysis for the last 1 year, history of adrenal hyperplasia, hyperparathyroidism. The patient has been on hemodialysis for 1 year, has been following with Dr. Corbin and according to the patient, he was told that his kidneys are failing because of the diabetes.The patient was called for cadaveric transplant. 1. Post-cadaveric renal transplant. 2. Hypertension. 3. Diabetes mellitus. 4. Anemia and thrombocytopenia. 5. Hypocalcemia and history of hyperparathyroidism. The patient has cadaveric renal transplant done on 02/18/18. Creatinine improving with good UOP Hematuria is improving, now off CBI,On flomax Ongoing HTN on Norvasc 5mg daily, BP is better. Hgb. is low and stable, WBC low, possibly due to ATG. Now on Prograf. Follow the BMP, Prograf level was high, on hold for tonight.
[2018-02-21] MEDS: Nystatin Liq 500,000 UNIT/5 ML UDC SWISH-SWAL SCH ×2 (17:14→23:53)
--- NOTE | 2018-02-21 18:07 | P.PN ---
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 Patient is doing well. Had BM this afternoon. No fever, chills. Per RN, no acute concerns. Physical Exam Vital signs: Vital Signs 02/20/18 19:00 02/20/18 20:00 02/20/18 20:58 Temperature 97.8 F Pulse Rate 72 71 Respiratory Rate 16 Blood Pressure 165/79 H Pulse Oximetry 98 97 02/20/18 23:15 02/21/18 00:53 02/21/18 03:00 Temperature 98.0 F 98.0 F Pulse Rate 72 72 63 Respiratory Rate 15 15 Blood Pressure 161/74 H 147/62 H Pulse Oximetry 97 95 02/21/18 07:00 02/21/18 09:34 02/21/18 11:00 Temperature 98.1 F 98.0 F Pulse Rate 65 68 Respiratory Rate 16 18 Blood Pressure 169/76 H 156/68 H Pulse Oximetry 98 98 97 02/21/18 15:00 02/21/18 17:56 Temperature 98.3 F 97.9 F Pulse Rate 68 80 Respiratory Rate 18 20 Blood Pressure 158/70 H 170/86 H Pulse Oximetry 98 98 Intake & Output 02/20/18 02/21/18 02/21/18 18:59 06:59 18:59 Intake Total 1500 / 1500 480 / 480 Output Total 1951 4960 / 4960 1671 / 1671 Balance -452 / -452 -4480 / -4480 -1672 / -1672 Weight 86.3 kg 83.5 kg Intake: IV 1500 / 1500 480 / 480 D5W/1/2 NS Inj 1,000 ML @ 40 1000 / 1000 480 / 480 mls/hr IV.CONT .Q24H MARCIANO Rx#: [id number] Thymoglobulin Inj 85 MG In NS 500 / 500 Inj 500 ML @ 125 mls/hr IV.SIG NOW MARCIANO Rx#:[id number] Output: Urine Amount (Catheter) 1951 4960 / 4960 1671 / 1671 3-way Urethral 1951 4960 / 4960 1671 / 1671 Other: Bladder Irrigation Fluid - Amount Instilled 3-way Urethral 451 300 0 Bladder Irrigation Fluid - Amount Drained 3-way Urethral 60 Date of Last Bowel Movement 02/21/18 # Bowel Movements 1 1 Narrative: GENERAL: Alert, Oriented x 3, NAD SKIN: Warm and dry. HEAD: Normocephalic. EYES: No scleral icterus. No injection or drainage. NECK: Supple, trachea midline. No JVD or lymphadenopathy. CARDIOVASCULAR: Regular rate and rhythm without murmurs, gallops, or rubs. RESPIRATORY: Breath sounds equal bilaterally. No accessory muscle use. GASTROINTESTINAL: Abdomen soft, non-tender, nondistended. MUSCULOSKELETAL: No cyanosis, or edema. BACK: Nontender without obvious deformity. No CVA tenderness. - Urinary Catheter Management 3-way Urethral Cath placed during this visit: yes, but has since been removed by the nurse Urethral indwelling: Yes Reason for continuing: Gross Hematuria Insertion date: 02/17/18 Insertion time: 17:45 Removal date: 02/17/18 Removal time: 17:30 Results - Labs CBC & Chem 7: 02/21/18 10:18 02/21/18 03:32 Laboratory Results - last 24 hr 02/20/18 02/20/18 02/21/18 21:05 23:58 03:30 WBC RBC Hgb Hct MCV MCH MCHC RDW Plt Count MPV Prelim Diff (Auto) Neut % (Auto) Lymph % (Auto) [place] % (Auto) Eos % (Auto) Baso % (Auto) Neut # (Auto) Lymph # (Auto) [place] # (Auto) Eos # (Auto) Baso # (Auto) WBC Differential Diff Scan Differential Comment Platelet Estimate Platelet Morphology Ovalocytes Sodium Potassium Chloride Carbon Dioxide Anion Gap BUN Creatinine Estimated GFR POC Glucose 243 H 213 H 152 H Random Glucose Calcium Phosphorus Magnesium Tacrolimus 02/21/18 02/21/18 02/21/18 03:32 03:32 03:32 WBC 2.2 L RBC 2.22 L Hgb 7.1 L Hct 20.8 L* MCV 93.6 MCH 31.8 MCHC 34.0 RDW 13.8 Plt Count 83 L MPV 8.1 Prelim Diff (Auto) Slide review pending Neut % (Auto) 87.8 H Lymph % (Auto) 4.1 L [place] % (Auto) 7.7 Eos % (Auto) 0.1 Baso % (Auto) 0.3 Neut # (Auto) 1.9 Lymph # (Auto) 0.1 L [place] # (Auto) 0.2 Eos # (Auto) 0.0 Baso # (Auto) 0.0 WBC Differential . Diff Scan Auto diff confirmed Differential Comment . Platelet Estimate Low L Platelet Morphology Normal Ovalocytes 1+ H Sodium 148 H Potassium 4.2 Chloride 114 H Carbon Dioxide 27.9 Anion Gap 6 BUN 22 H Creatinine 1.25 Estimated GFR 56 L POC Glucose Random Glucose 142 H Calcium 8.5 Phosphorus 1.4 L Magnesium 2.4 Tacrolimus 14.4 02/21/18 02/21/18 02/21/18 08:36 10:18 12:15 WBC RBC Hgb 8.4 L Hct 25.5 L MCV MCH MCHC RDW Plt Count MPV Prelim Diff (Auto) Neut % (Auto) Lymph % (Auto) [place] % (Auto) Eos % (Auto) Baso % (Auto) Neut # (Auto) Lymph # (Auto) [place] # (Auto) Eos # (Auto) Baso # (Auto) WBC Differential Diff Scan Differential Comment Platelet Estimate Platelet Morphology Ovalocytes Sodium Potassium Chloride Carbon Dioxide Anion Gap BUN Creatinine Estimated GFR POC Glucose 152 H 139 H Random Glucose Calcium Phosphorus Magnesium Tacrolimus 02/21/18 17:03 WBC RBC Hgb Hct MCV MCH MCHC RDW Plt Count MPV Prelim Diff (Auto) Neut % (Auto) Lymph % (Auto) [place] % (Auto) Eos % (Auto) Baso % (Auto) Neut # (Auto) Lymph # (Auto) [place] # (Auto) Eos # (Auto) Baso # (Auto) WBC Differential Diff Scan Differential Comment Platelet Estimate Platelet Morphology Ovalocytes Sodium Potassium Chloride Carbon Dioxide Anion Gap BUN Creatinine Estimated GFR POC Glucose 299 H Random Glucose Calcium Phosphorus Magnesium Tacrolimus Assessment and Plan - Assessment (1) ESRD (end stage renal disease) Code(s): N18.6 - End stage renal disease Status: Acute (2) HTN (hypertension) Code(s): I10 - Essential (primary) hypertension Status: Acute (3) Diabetes mellitus Code(s): E11.9 - Type 2 diabetes mellitus without complications Status: Chronic - Plan Mr. Matthews is a pleasant 77 year old male with a history of DM, HTN, ESRD on MWF hemodialysis who took a flight to come back to [place] after he was informed for matched kidney for transplant. At the time of this interview, he is hemodynamically stable and remains in good spirit. End stage Renal disease -s/p renal transplant. Currently on Cellcept, Prograf. -Transplant surgery, Urology, Nephrology following. Diabetes mellitus - Controlled with lifestyle modifications. - Will keep him on sliding scale insulin. Goal BG 140-180 in the hospital. - Levemir 5 units QHS. Hypertension - Currently Carvedilol 25mg BID and Amlodipine 5mg Qday. Full code. Ambulation. Pharmacological DVT prophylaxis per Transplant surgeon.
[2018-02-21 18:17] LABS: Hematocrit 24.8 % (39.0-51.0); Hemoglobin 8.3 gm/dL (13.0-17.0)
[2018-02-21 18:57] LABS: Activated Partial Thrombo Time 25.3 sec (24.3-30.1); Prothrombin Time 10.1 sec (9.8-11.6)
[2018-02-21] MEDS ORDERED: amLODIPine 5 MG Tablet PO SCH (20:00)
[2018-02-21] MEDS: Insulin Detemir Inj 1,000 UNIT/10 ML Vial SQ SCH (23:58)
[2018-02-22] MEDS: Insulin NovoLOG Aspart Correctional Sugar Inj SQ SCH ×7 (01:57→23:29)
[2018-02-22 05:31] LABS: Baso % (Auto) 0.2 % (0.0-2.0); Eos % (Auto) 0.1 % (0.0-4.0); Hematocrit 22.5 % (39.0-51.0); Hemoglobin 7.6 gm/dL (13.0-17.0); Lymph # (Auto) 0.1 th/mm3 (1.0-4.8); Lymph % (Auto) 2.8 % (9.0-44.0); Mean Corpuscular HGB Conc 33.9 % (32.0-36.0); Mean Corpuscular Hemoglobin 31.6 pg (27.0-34.0); Mean Corpuscular Volume 93.2 fL (80.0-100.0); Mean Platelet Volume 7.8 fL (7.0-11.0); Mono # (Auto) 0.2 th/mm3 (0.0-0.9); Mono % (Auto) 7.3 % (0.0-8.0); Neut # (Auto) 2.5 th/mm3 (1.8-7.7); Neut % (Auto) 89.6 % (16.0-70.0); Platelet Count 92 th/mm3 (150-450); Red Blood Count 2.42 mil/mm3 (4.50-5.90); Red Cell Distribution Width 13.5 % (11.6-17.2); White Blood Count 2.7 th/mm3 (4.0-11.0)
[2018-02-22 06:05] LABS: Calcium 8.9 mg/dL (8.5-10.1); Carbon Dioxide 25.8 meq/L (21.0-32.0); Magnesium 2.3 mg/dL (1.5-2.5); Phosphorus 1.3 mg/dL (2.5-4.9); Potassium 4.2 meq/L (3.5-5.1)
[2018-02-22 07:05] LABS: Eosinophils 1 % (0-4); Lymphocytes 2 % (9-44); Monocytes 2 % (0-8); Platelet Morphology Normal (Normal)
[2018-02-22] MEDS ORDERED: amLODIPine 5 MG Tablet PO ONE (08:00)
[2018-02-22] MEDS ORDERED: Lidocaine 2% Jelly 5 ML Syringe TOPICAL ONE ×2 (09:00→10:00)
--- NOTE | 2018-02-22 09:22 | P.PN ---
Physical Exam Vital signs: Vital Signs 02/21/18 09:34 02/21/18 11:00 02/21/18 15:00 Temperature 98.0 F 98.3 F Pulse Rate 68 68 Respiratory Rate 18 18 Blood Pressure 156/68 H 158/70 H Pulse Oximetry 98 97 98 02/21/18 17:56 02/21/18 18:13 02/21/18 19:00 Temperature 97.9 F 98.2 F Pulse Rate 80 80 78 Respiratory Rate 20 16 Blood Pressure 170/86 H 176/77 H Pulse Oximetry 98 97 02/21/18 19:13 02/21/18 20:00 02/21/18 20:15 Temperature Pulse Rate 78 74 74 Respiratory Rate Blood Pressure 159/62 H Pulse Oximetry 02/21/18 21:00 02/21/18 22:00 02/21/18 23:00 Temperature Pulse Rate 80 70 70 Respiratory Rate Blood Pressure 167/79 H Pulse Oximetry 02/22/18 00:00 02/22/18 01:00 02/22/18 02:00 Temperature Pulse Rate 76 72 71 Respiratory Rate Blood Pressure Pulse Oximetry 02/22/18 03:00 02/22/18 03:21 02/22/18 03:49 Temperature 98.1 F Pulse Rate 72 70 72 Respiratory Rate 14 Blood Pressure 160/64 H Pulse Oximetry 02/22/18 05:00 02/22/18 06:00 02/22/18 07:33 Temperature 98.1 F Pulse Rate 76 80 72 Respiratory Rate 16 Blood Pressure Pulse Oximetry 99 02/22/18 08:31 Temperature Pulse Rate Respiratory Rate Blood Pressure 188/86 H Pulse Oximetry Intake & Output 02/21/18 02/22/18 02/22/18 18:59 06:59 18:59 Output Total 2071 1844 / 1844 162 / 162 Balance -2071 / -4 / -1844 -162 / -162 Weight 83.5 kg 82 kg Output: Urine Amount (Catheter) 2071 1844 / 1844 162 / 162 3-way Urethral 2071 / 1844 162 / 162 Other: Bladder Irrigation Fluid - Amount Instilled 3-way Urethral 287 420 412 Bladder Irrigation Fluid - Amount Drained 3-way Urethral 60 Date of Last Bowel Movement 02/21/18 02/22/18 # Bowel Movements 1 Narrative: Subjective: Follow up s/p Cadaveric renal transplant on 02/17/2018. With hematuria. Also had blood clot seen by urology irrigated. Still with significant hematuria. He is in bed says he feels very tired at this time. No n/v/d/c. No fever, chills. Physical Exam GENERAL: Alert, Oriented x 3, NAD SKIN: Warm and dry. HEAD: Normocephalic. EYES: No scleral icterus. No injection or drainage. NECK: Supple, trachea midline. No JVD or lymphadenopathy. CARDIOVASCULAR: Regular rate and rhythm without murmurs, gallops, or rubs. RESPIRATORY: Breath sounds equal bilaterally. No accessory muscle use. GASTROINTESTINAL: Abdomen soft, non-tender, nondistended. MUSCULOSKELETAL: No cyanosis, or edema. BACK: Nontender without obvious deformity. No CVA tenderness. Assessment and Plan Mr. Matthews is a pleasant 77 year old male with a history of DM, HTN, ESRD on MWF hemodialysis who took a flight to come back to [place] after he was informed for matched kidney for transplant. At the time of this interview, he is hemodynamically stable and remains in good spirit. Hematuria. Consult urology. Seen by Dr. Mccormick and patient had a artery irrigation. Follow recommendation pulmonology. [address]ano placed and bladder irrigated; clot removed Will start Amicar CBI to clear urine. End stage Renal disease -s/p renal transplant. Currently on Cellcept, Prograf. -Transplant surgery, Urology, Nephrology following. Diabetes mellitus - Controlled with lifestyle modifications. - Will keep him on sliding scale insulin. Goal BG 140-180 in the hospital. - Levemir 5 units QHS. Hypertension - Currently Carvedilol 25mg BID and Amlodipine 5mg Qday. Full code. Ambulation. Pharmacological DVT prophylaxis per Transplant surgeon. Discussed with the patient, nurse. - Urinary Catheter Management 3-way Urethral Cath placed during this visit: yes, but has since been removed by the nurse Urethral indwelling: Yes Reason for continuing: Gross Hematuria Insertion date: 02/17/18 Insertion time: 17:45 Removal date: 02/17/18 Removal time: 17:30 Results - Labs CBC & Chem 7: 02/22/18 09:23 02/22/18 05:00 Laboratory Results - last 24 hr 02/21/18 02/21/18 02/21/18 03:32 10:18 12:15 WBC RBC Hgb 8.4 L Hct 25.5 L MCV MCH MCHC RDW Plt Count MPV Prelim Diff (Auto) Neut % (Auto) Lymph % (Auto) [place] % (Auto) Eos % (Auto) Baso % (Auto) Neut # (Auto) Lymph # (Auto) [place] # (Auto) Eos # (Auto) Baso # (Auto) WBC Differential Seg Neuts % (Manual) Band Neuts % (Manual) Lymphocytes % (Manual) Monocytes % (Manual) Eosinophils % (Manual) Abs Neuts (Manual) Differential Comment Platelet Estimate Platelet Morphology PT INR APTT Sodium Potassium Chloride Carbon Dioxide Anion Gap BUN Creatinine Estimated GFR POC Glucose 139 H Random Glucose Calcium Phosphorus Magnesium Tacrolimus 14.4 02/21/18 02/21/18 02/21/18 17:03 17:59 18:08 WBC RBC Hgb 8.3 L Hct 24.8 L MCV MCH MCHC RDW Plt Count MPV Prelim Diff (Auto) Neut % (Auto) Lymph % (Auto) [place] % (Auto) Eos % (Auto) Baso % (Auto) Neut # (Auto) Lymph # (Auto) [place] # (Auto) Eos # (Auto) Baso # (Auto) WBC Differential Seg Neuts % (Manual) Band Neuts % (Manual) Lymphocytes % (Manual) Monocytes % (Manual) Eosinophils % (Manual) Abs Neuts (Manual) Differential Comment Platelet Estimate Platelet Morphology PT 10.1 INR 1.0 APTT 25.3 Sodium Potassium Chloride Carbon Dioxide Anion Gap BUN Creatinine Estimated GFR POC Glucose 299 H Random Glucose Calcium Phosphorus Magnesium Tacrolimus 02/21/18 02/21/18 02/22/18 21:42 23:51 05:00 WBC 2.7 L RBC 2.42 L Hgb 7.6 L Hct 22.5 L MCV 93.2 MCH 31.6 MCHC 33.9 RDW 13.5 Plt Count 92 L MPV 7.8 Prelim Diff (Auto) Slide review pending Neut % (Auto) 89.6 H Lymph % (Auto) 2.8 L [place] % (Auto) 7.3 Eos % (Auto) 0.1 Baso % (Auto) 0.2 Neut # (Auto) 2.5 Lymph # (Auto) 0.1 L [place] # (Auto) 0.2 Eos # (Auto) 0.0 Baso # (Auto) 0.0 WBC Differential Manual diff final Seg Neuts % (Manual) 89 H Band Neuts % (Manual) 6 Lymphocytes % (Manual) 2 L Monocytes % (Manual) 2 Eosinophils % (Manual) 1 Abs Neuts (Manual) 2.6 Differential Comment . Platelet Estimate Low L Platelet Morphology Normal PT INR APTT Sodium Potassium Chloride Carbon Dioxide Anion Gap BUN Creatinine Estimated GFR POC Glucose 269 H 221 H Random Glucose Calcium Phosphorus Magnesium Tacrolimus 02/22/18 02/22/18 02/22/18 05:00 05:06 08:08 WBC RBC Hgb Hct MCV MCH MCHC RDW Plt Count MPV Prelim Diff (Auto) Neut % (Auto) Lymph % (Auto) [place] % (Auto) Eos % (Auto) Baso % (Auto) Neut # (Auto) Lymph # (Auto) [place] # (Auto) Eos # (Auto) Baso # (Auto) WBC Differential Seg Neuts % (Manual) Band Neuts % (Manual) Lymphocytes % (Manual) Monocytes % (Manual) Eosinophils % (Manual) Abs Neuts (Manual) Differential Comment Platelet Estimate Platelet Morphology PT INR APTT Sodium 146 H Potassium 4.2 Chloride 111 H Carbon Dioxide 25.8 Anion Gap 9 BUN 24 H Creatinine 1.13 Estimated GFR 63 L POC Glucose 149 H 168 H Random Glucose 135 H Calcium 8.9 Phosphorus 1.3 L Magnesium 2.3 Tacrolimus Assessment and Plan - Assessment (1) ESRD (end stage renal disease) Code(s): N18.6 - End stage renal disease Status: Acute (2) HTN (hypertension) Code(s): I10 - Essential (primary) hypertension Status: Acute (3) Diabetes mellitus Code(s): E11.9 - Type 2 diabetes mellitus without complications Status: Chronic
[2018-02-22 09:32] LABS: Hematocrit 24.7 % (39.0-51.0); Hemoglobin 8.5 gm/dL (13.0-17.0)
[2018-02-22] MEDS ORDERED: Sodium Phosphate Inj 30 MMOL in Sodium Chlor 0.9% Inj 250 ML IV.SIG ONE (10:00)
[2018-02-22] MEDS: Nystatin Liq 500,000 UNIT/5 ML UDC SWISH-SWAL SCH ×4 (10:18→21:13)
[2018-02-22] MEDS: Carvedilol 12.5 MG Tablet PO SCH ×2 (10:18→21:14)
[2018-02-22] MEDS: predniSONE 20 MG Tablet PO SCH (10:18)
[2018-02-22] MEDS: Potassium Phos/Sodium Phos 250 MG Tablet PO SCH ×2 (10:44→21:13)
--- NOTE | 2018-02-22 11:53 | P.PNTS ---
Subjective Interval history: No new c/o, but per RN had some anxiety last night Physical Exam Vital signs: Vital Signs 02/21/18 15:00 02/21/18 17:56 02/21/18 18:13 Temperature 98.3 F 97.9 F Pulse Rate 68 80 80 Respiratory Rate 18 20 Blood Pressure 158/70 H 170/86 H Pulse Oximetry 98 98 02/21/18 19:00 02/21/18 19:13 02/21/18 20:00 Temperature 98.2 F Pulse Rate 78 78 74 Respiratory Rate 16 Blood Pressure 176/77 H Pulse Oximetry 97 02/21/18 20:15 02/21/18 21:00 02/21/18 22:00 Temperature Pulse Rate 74 80 70 Respiratory Rate Blood Pressure 159/62 H Pulse Oximetry 02/21/18 23:00 02/22/18 00:00 02/22/18 01:00 Temperature Pulse Rate 70 76 72 Respiratory Rate Blood Pressure 167/79 H Pulse Oximetry 02/22/18 02:00 02/22/18 03:00 02/22/18 03:21 Temperature 98.1 F Pulse Rate 71 72 70 Respiratory Rate 14 Blood Pressure 160/64 H Pulse Oximetry 02/22/18 03:49 02/22/18 05:00 02/22/18 06:00 Temperature Pulse Rate 72 76 80 Respiratory Rate Blood Pressure Pulse Oximetry 02/22/18 07:33 02/22/18 08:31 Temperature 98.1 F Pulse Rate 72 Respiratory Rate 16 Blood Pressure 188/86 H Pulse Oximetry 99 Intake & Output 02/21/18 02/22/18 02/22/18 18:59 06:59 18:59 Output Total 2071 1844 / 1844 162 / 162 Balance -2071 / -2071 -1843 / -1844 -162 / -162 Weight 83.5 kg 82 kg Output: Urine Amount (Catheter) 2071 1844 / 1844 162 / 162 3-way Urethral 2071 / 1844 162 / 162 Other: Bladder Irrigation Fluid - Amount Instilled 3-way Urethral 287 420 0 Bladder Irrigation Fluid - Amount Drained 3-way Urethral 60 Date of Last Bowel Movement 02/21/18 02/22/18 # Bowel Movements 1 - Constitutional no acute distress - Routine HEENT Exam Head: Present: normocephalic, atraumatic Eye: Present: EOMI - Routine Neck Exam Present: supple - Routine Respiratory Exam Present: CTA bilaterally - Routine Cardiovascular Exam Present: RRR, S1, S2 - Routine Abdominal Exam Present: soft, normoactive bowel sounds Comments: abd soft NT/ND. Wound cdi wthout eft. - Routine Extremities Exam Present: pulses intact Comments: calves soft nt . no peripheral edema - Routine Skin Exam Present: intact - Routine Neurological Exam Present: alert, oriented X3 - Routine Psychiatric Exam Present: normal affect, normal thought process (catheter exchanged this AM and new catheter placed, as patient has residual clot in his bladder along with ? some new blood in arellano) - Urinary Catheter Management 3-way Urethral Cath placed during this visit: yes, but has since been removed by the nurse Urethral indwelling: Yes Reason for continuing: Gross Hematuria Insertion date: 02/17/18 Insertion time: 17:45 Removal date: 02/17/18 Removal time: 17:30 Results - Labs CBC & Chem 7: 02/22/18 09:23 02/22/18 05:00 Laboratory Results - last 24 hr 02/21/18 02/21/18 02/21/18 03:32 12:15 17:03 WBC RBC Hgb Hct MCV MCH MCHC RDW Plt Count MPV Prelim Diff (Auto) Neut % (Auto) Lymph % (Auto) [place] % (Auto) Eos % (Auto) Baso % (Auto) Neut # (Auto) Lymph # (Auto) [place] # (Auto) Eos # (Auto) Baso # (Auto) WBC Differential Seg Neuts % (Manual) Band Neuts % (Manual) Lymphocytes % (Manual) Monocytes % (Manual) Eosinophils % (Manual) Abs Neuts (Manual) Differential Comment Platelet Estimate Platelet Morphology PT INR APTT Sodium Potassium Chloride Carbon Dioxide Anion Gap BUN Creatinine Estimated GFR POC Glucose 139 H 299 H Random Glucose Calcium Phosphorus Magnesium Tacrolimus 14.4 02/21/18 02/21/18 02/21/18 17:59 18:08 21:42 WBC RBC Hgb 8.3 L Hct 24.8 L MCV MCH MCHC RDW Plt Count MPV Prelim Diff (Auto) Neut % (Auto) Lymph % (Auto) [place] % (Auto) Eos % (Auto) Baso % (Auto) Neut # (Auto) Lymph # (Auto) [place] # (Auto) Eos # (Auto) Baso # (Auto) WBC Differential Seg Neuts % (Manual) Band Neuts % (Manual) Lymphocytes % (Manual) Monocytes % (Manual) Eosinophils % (Manual) Abs Neuts (Manual) Differential Comment Platelet Estimate Platelet Morphology PT 10.1 INR 1.0 APTT 25.3 Sodium Potassium Chloride Carbon Dioxide Anion Gap BUN Creatinine Estimated GFR POC Glucose 269 H Random Glucose Calcium Phosphorus Magnesium Tacrolimus 02/21/18 02/22/18 02/22/18 23:51 05:00 05:00 WBC 2.7 L RBC 2.42 L Hgb 7.6 L Hct 22.5 L MCV 93.2 MCH 31.6 MCHC 33.9 RDW 13.5 Plt Count 92 L MPV 7.8 Prelim Diff (Auto) Slide review pending Neut % (Auto) 89.6 H Lymph % (Auto) 2.8 L [place] % (Auto) 7.3 Eos % (Auto) 0.1 Baso % (Auto) 0.2 Neut # (Auto) 2.5 Lymph # (Auto) 0.1 L [place] # (Auto) 0.2 Eos # (Auto) 0.0 Baso # (Auto) 0.0 WBC Differential Manual diff final Seg Neuts % (Manual) 89 H Band Neuts % (Manual) 6 Lymphocytes % (Manual) 2 L Monocytes % (Manual) 2 Eosinophils % (Manual) 1 Abs Neuts (Manual) 2.6 Differential Comment . Platelet Estimate Low L Platelet Morphology Normal PT INR APTT Sodium 146 H Potassium 4.2 Chloride 111 H Carbon Dioxide 25.8 Anion Gap 9 BUN 24 H Creatinine 1.13 Estimated GFR 63 L POC Glucose 221 H Random Glucose 135 H Calcium 8.9 Phosphorus 1.3 L Magnesium 2.3 Tacrolimus 02/22/18 02/22/18 02/22/18 05:06 08:08 09:23 WBC RBC Hgb 8.5 L Hct 24.7 L MCV MCH MCHC RDW Plt Count MPV Prelim Diff (Auto) Neut % (Auto) Lymph % (Auto) [place] % (Auto) Eos % (Auto) Baso % (Auto) Neut # (Auto) Lymph # (Auto) [place] # (Auto) Eos # (Auto) Baso # (Auto) WBC Differential Seg Neuts % (Manual) Band Neuts % (Manual) Lymphocytes % (Manual) Monocytes % (Manual) Eosinophils % (Manual) Abs Neuts (Manual) Differential Comment Platelet Estimate Platelet Morphology PT INR APTT Sodium Potassium Chloride Carbon Dioxide Anion Gap BUN Creatinine Estimated GFR POC Glucose 149 H 168 H Random Glucose Calcium Phosphorus Magnesium Tacrolimus Assessment and Plan - Assessment (1) HTN (hypertension) Code(s): I10 - Essential (primary) hypertension Status: Acute - Plan Post op Day: 4 Patient: Mr Matthews is status post DDKT for ESRD secondary to DM/HTN US x 2 postop, shows patent vessels. There is also a "clot" noted in the bladder Prophylaxis: Decubitus ulcer: patient awake, alert, and mobile CMV prophylaxis: ont valcyte PCP prophylaxis: on bactrim Consults: Transplant Nephrology Urologist Assessment and Plan: S/P DDKT to right iliac fossa. Allograft function: Creatinine normal- prograf held for supratherapeutic level- will plan to resume this afternoon at lower dose if therapeutic.. CBI resumed and ne3 arellano placed by urology after manual irrigation of bladder to extract clot by urology, their assistance is appreciated. Abd soft, approp tender. Continue insulin sliding scale. Daily standing weight. B SCDs. On flomax. Oral analgesic prn. Some hypertension last night . BP meds adjusted. Immunosuppression: Thymo induction; Maint: steroids + Cellcept 750 mg BID + prograf (on hold)
--- NOTE | 2018-02-22 13:40 | P.PNURO ---
Subjective Patient symptoms today: Pt seen and examined. Arellano changed to [address] and clots irrigated at bedside. Urine still pink. Arellano placed on traction. Objective Vital Signs: Vital Signs 02/21/18 15:00 02/21/18 17:56 02/21/18 18:13 Temperature 98.3 F 97.9 F Pulse Rate 68 80 80 Respiratory Rate 18 20 Blood Pressure 158/70 H 170/86 H Pulse Oximetry 98 98 02/21/18 19:00 02/21/18 19:13 02/21/18 20:00 Temperature 98.2 F Pulse Rate 78 78 74 Respiratory Rate 16 Blood Pressure 176/77 H Pulse Oximetry 97 02/21/18 20:15 02/21/18 21:00 02/21/18 22:00 Temperature Pulse Rate 74 80 70 Respiratory Rate Blood Pressure 159/62 H Pulse Oximetry 02/21/18 23:00 02/22/18 00:00 02/22/18 01:00 Temperature Pulse Rate 70 76 72 Respiratory Rate Blood Pressure 167/79 H Pulse Oximetry 02/22/18 02:00 02/22/18 03:00 02/22/18 03:21 Temperature 98.1 F Pulse Rate 71 72 70 Respiratory Rate 14 Blood Pressure 160/64 H Pulse Oximetry 02/22/18 03:49 02/22/18 05:00 02/22/18 06:00 Temperature Pulse Rate 72 76 80 Respiratory Rate Blood Pressure Pulse Oximetry 02/22/18 07:00 02/22/18 07:33 02/22/18 08:00 Temperature 98.1 F Pulse Rate 76 72 74 Respiratory Rate 16 Blood Pressure 181/82 H Pulse Oximetry 99 02/22/18 08:31 02/22/18 09:00 02/22/18 10:00 Temperature Pulse Rate 72 80 Respiratory Rate Blood Pressure 188/86 H Pulse Oximetry 02/22/18 11:00 02/22/18 12:00 02/22/18 12:43 Temperature 98.3 F Pulse Rate 78 72 78 Respiratory Rate 16 Blood Pressure 162/75 H Pulse Oximetry 99 02/22/18 13:00 Temperature Pulse Rate 72 Respiratory Rate Blood Pressure Pulse Oximetry Intake & Output 02/21/18 02/22/18 02/22/18 18:59 06:59 18:59 Output Total 2072 / 2072 1844 / 1844 1179 / 1179 Balance -2071 -4 / -1844 -1179 / -1179 Weight 83.5 kg 82 kg Output: Urine Amount (Catheter) 2071 / 1843 1179 / 1179 3-way Urethral 2071 184 1179 / 1179 Other: Bladder Irrigation Fluid - Amount Instilled 3-way Urethral 287 420 299 Bladder Irrigation Fluid - Amount Drained 3-way Urethral 60 Date of Last Bowel Movement 02/21/18 02/22/18 # Bowel Movements 1 Result Diagrams: 02/22/18 09:23 02/22/18 05:00 Medications and IVs: Active Medications Generic Name Dose Route Start Last Admin Trade Name Freq PRN Reason Stop Dose Admin Al Hydroxide/Mg Hydroxide 30 ml 02/17/18 01:28 02/21/18 08:25 Milk Of Magnesia Liq PO 30 ml Q12H PRN Administration Mild Constipation Albuterol 1 ampul 02/17/18 16:02 Duoneb Neb (Prn) NEB Q6HR NEB PRN WHEEZING Amlodipine Besylate 10 mg 02/23/18 09:00 Norvasc PO DAILY [facility] Bisacodyl 10 mg 02/20/18 16:02 Dulcolax Supp RECTAL PRN PRN CONSTIPATION Carvedilol 25 mg 02/17/18 09:00 02/22/18 10:18 Coreg PO 25 mg BID [facility] Administration Sodium Chloride 3,000 ml/ 0 ml 02/22/18 13:45 Aminocaproic Acid 3,000 mg IRRIGATION Q24H [facility] Dextrose 50 ml 02/18/18 09:43 D50w Vial IV.PUSH UNSCH PRN PER HYPOGLYCEMIA PROTOCOL Diphenhydramine HCl 25 mg 02/17/18 16:02 Benadryl PO Q6H PRN ITCHING Diphenhydramine HCl 25 mg 02/17/18 16:02 Benadryl Inj IV.PUSH Q6H PRN ITCHING Epinephrine HCl 0.1 mg 02/18/18 09:12 Epinephrine (1:10,000) Inj IV.PUSH ONCE PRN SBP<70 OR RESPIRATORY DISTRESS Glucagon 1 mg 02/18/18 09:43 Glucagon Inj OTHER PRN PRN for Hypoglycemia Protocol Ondansetron HCl 8 mg/ Dextrose 54 mls @ 200 mls/hr 02/17/18 16:02 IV.SIG ONCE PRN MILD NAUSEA Sodium Phosphate 30 mmol/ 260 mls @ 40 mls/hr 02/22/18 10:00 02/22/18 10:44 Sodium Chloride IV.SIG 02/22/18 16:29 40 mls/hr ONCE ONE Administration Insulin Aspart 0 unit 02/19/18 04:00 02/22/18 12:42 Novolog Insulin Suppl Scale Inj SQ 7 unit Q4HR [facility] Administration Protocol Insulin Detemir 5 unit 02/18/18 21:45 02/21/18 23:58 Levemir Inj SQ 5 unit HS [facility] Administration Lactulose 30 ml 02/17/18 01:28 Lactulose Liq PO DAILY PRN SEVERE CONSITIPATION Lidocaine HCl 5 ml 02/17/18 21:30 Xylocaine 2% Jelly OTHER ONCE [facility] Morphine Sulfate 2 mg 02/20/18 10:53 02/20/18 20:02 Morphine Inj IV.PUSH 2 mg Q4H PRN Administration ACUTE PAIN Mycophenolate Mofetil 750 mg 02/18/18 06:00 02/22/18 06:17 Cellcept PO 750 mg BID@0600,1800 [facility] Administration Naloxone HCl 0.4 mg 02/17/18 20:58 Narcan Inj IV.PUSH PRN PRN Resp rate < 10 Nystatin 5 ml 02/21/18 18:00 02/22/18 12:42 Mycostatin Liq SWISH-SWAL 5 ml QID [facility] Administration Ondansetron HCl 4 mg 02/17/18 16:02 Zofran Inj IV.PUSH Q6H PRN MILD NAUSEA Oxycodone/Acetaminophen 1 tab 02/19/18 08:28 02/20/18 06:04 Percocet 5/325 Mg PO 1 tab Q6H PRN Administration ABDOMINAL PAIN Pantoprazole Sodium 40 mg 02/18/18 09:00 02/22/18 10:17 Protonix PO 40 mg DAILY [facility] Administration Potassium Phos/Sodium Phos 250 mg 02/21/18 09:00 02/22/18 10:44 K-Phos Neutral PO 250 mg BID [facility] Administration Prednisone 20 mg 02/22/18 09:00 02/22/18 10:18 Deltasone PO 20 mg DAILY [facility] Administration Sennosides 17.2 mg 02/17/18 01:28 02/21/18 08:26 Senokot PO 17.2 mg Q12H PRN Administration Moderate Constipation Tacrolimus 6 mg 02/20/18 18:00 02/21/18 06:03 Prograf PO 6 mg BID@0600,1800 [facility] Administration Tamsulosin HCl 0.4 mg 02/19/18 09:00 02/22/18 10:17 Flomax PO 0.4 mg DAILY [facility] Administration Temazepam 15 mg 02/17/18 01:28 Restoril PO HS PRN INSOMNIA Trimethoprim/Sulfamethoxazole 1 tab 02/21/18 14:15 02/21/18 14:49 Bactrim Ds PO 1 tab MOWEFR [facility] Administration Valganciclovir 450 mg 02/21/18 14:15 02/22/18 10:18 Valcyte PO 450 mg DAILY [facility] Administration Objective Remarks: Abd: soft,nt,nd Arellano on CBI: pink in color 02/21 Abd:soft,nt,nd Arellano with clear urine. CBI off 02/22 Abd:soft,nt,nd Arellano: started on Amicar CBI Assessment and Plan - Plan 77 y.o male s/p KTX with gross hematuria Recommend manually irrigating arellano Q6 hours to make sure there is no clot buildup. If so, recommend changing up to [address] Continue CBI. 02/21 77 y.o male s/p KTX with gross hematuria. Hematuria resolving. CBI off. Void trial in AM. 02/22 77 y.o male s/p KTX with gross hematuria [address] arellano placed and bladder irrigated; clot removed Will start Amicar CBI to clear urine.
--- NOTE | 2018-02-22 15:27 | P.PNNP ---
Subjective Interval history: Patient seen in AM, clinically same, not in distress, no abd. pain. Physical Exam Vital signs: Vital Signs 02/21/18 17:56 02/21/18 18:13 02/21/18 19:00 Temperature 97.9 F 98.2 F Pulse Rate 80 80 78 Respiratory Rate 20 16 Blood Pressure 170/86 H 176/77 H Pulse Oximetry 98 97 02/21/18 19:13 02/21/18 20:00 02/21/18 20:15 Temperature Pulse Rate 78 74 74 Respiratory Rate Blood Pressure 159/62 H Pulse Oximetry 02/21/18 21:00 02/21/18 22:00 02/21/18 23:00 Temperature Pulse Rate 80 70 70 Respiratory Rate Blood Pressure 167/79 H Pulse Oximetry 02/22/18 00:00 02/22/18 01:00 02/22/18 02:00 Temperature Pulse Rate 76 72 71 Respiratory Rate Blood Pressure Pulse Oximetry 02/22/18 03:00 02/22/18 03:21 02/22/18 03:49 Temperature 98.1 F Pulse Rate 72 70 72 Respiratory Rate 14 Blood Pressure 160/64 H Pulse Oximetry 02/22/18 05:00 02/22/18 06:00 02/22/18 07:00 Temperature Pulse Rate 76 80 76 Respiratory Rate Blood Pressure Pulse Oximetry 02/22/18 07:33 02/22/18 08:00 02/22/18 08:31 Temperature 98.1 F Pulse Rate 72 74 Respiratory Rate 16 Blood Pressure 181/82 H 188/86 H Pulse Oximetry 99 02/22/18 09:00 02/22/18 10:00 02/22/18 11:00 Temperature Pulse Rate 72 80 78 Respiratory Rate Blood Pressure Pulse Oximetry 02/22/18 12:00 02/22/18 12:43 02/22/18 13:00 Temperature 98.3 F Pulse Rate 72 78 72 Respiratory Rate 16 Blood Pressure 162/75 H Pulse Oximetry 99 Intake & Output 02/21/18 02/22/18 02/22/18 18:59 06:59 18:59 Output Total 2071 1844 / 1844 1386 / 1386 Balance -2071 / -2071 -1844 / -1844 -1386 / -1386 Weight 83.5 kg 82 kg Output: Urine Amount (Catheter) 2071 / 1843 1386 / 1386 3-way Urethral 2071 1386 / 1386 Other: Bladder Irrigation Fluid - Amount Instilled 3-way Urethral 287 420 550 Bladder Irrigation Fluid - Amount Drained 3-way Urethral 60 Date of Last Bowel Movement 02/21/18 02/22/18 # Bowel Movements 1 - Constitutional no acute distress - Routine HEENT Exam Head: Present: normocephalic ENT: Present: mucous membranes moist - Routine Neck Exam Present: supple - Routine Respiratory Exam Present: decreased breath sounds, CTA bilaterally, rhonchi - Routine Cardiovascular Exam Present: RRR, S1, S2 - Routine Abdominal Exam Present: soft, normoactive bowel sounds, distended - Routine Extremities Exam Present: edema - Routine Neurological Exam Present: alert, oriented X3 - Detailed Neurological Exam: Coma Scale Verbal Response: Oriented - Urinary Catheter Management 3-way Urethral Cath placed during this visit: yes, but has since been removed by the nurse Urethral indwelling: Yes Reason for continuing: Gross Hematuria Insertion date: 02/17/18 Insertion time: 17:45 Removal date: 02/17/18 Removal time: 17:30 Assessment and Plan - Plan 77-year-old male with a past medical history of hypertension, diabetes mellitus, end-stage renal disease on hemodialysis for the last 1 year, history of adrenal hyperplasia, hyperparathyroidism. The patient has been on hemodialysis for 1 year, has been following with Dr. Corbin and according to the patient, he was told that his kidneys are failing because of the diabetes.The patient was called for cadaveric transplant. 1. Post-cadaveric renal transplant. 2. Hypertension. 3. Diabetes mellitus. 4. Anemia and thrombocytopenia. 5. Hypocalcemia and history of hyperparathyroidism. The patient has cadaveric renal transplant done on 02/18/18. Creatinine improving with good UOP Hematuria is improving, now off CBI,On flomax Ongoing HTN on Norvasc 5mg daily, BP is better. Hgb. is low and stable, WBC low, possibly due to ATG. Now on Prograf, level was 4.5. Creatinine continue to improve. Urology following for Hematuria, Vargas's catheter changed.
[2018-02-22] MEDS: Sodium Chloride 0.9% Irr Bag 3,000 ML, Aminocaproic Acid Inj 3,000 MG IRRIGATION SCH ×2 (15:31)
[2018-02-22] MEDS: Insulin Detemir Inj 1,000 UNIT/10 ML Vial SQ SCH (21:15)
[2018-02-23] MEDS: Sodium Chloride 0.9% Irr Bag 3,000 ML, Aminocaproic Acid Inj 3,000 MG IRRIGATION SCH ×4 (01:05→21:09)
[2018-02-23 04:21] LABS: Baso % (Auto) 0.2 % (0.0-2.0); Eos % (Auto) 0.4 % (0.0-4.0); Lymph # (Auto) 0.1 th/mm3 (1.0-4.8); Lymph % (Auto) 4.3 % (9.0-44.0); Mean Corpuscular HGB Conc 34.1 % (32.0-36.0); Mean Corpuscular Hemoglobin 31.5 pg (27.0-34.0); Mean Corpuscular Volume 92.4 fL (80.0-100.0); Mean Platelet Volume 7.6 fL (7.0-11.0); Mono # (Auto) 0.2 th/mm3 (0.0-0.9); Mono % (Auto) 9.3 % (0.0-8.0); Neut # (Auto) 2.3 th/mm3 (1.8-7.7); Neut % (Auto) 85.8 % (16.0-70.0); Platelet Count 99 th/mm3 (150-450); Red Blood Count 2.19 mil/mm3 (4.50-5.90); Red Cell Distribution Width 13.5 % (11.6-17.2); White Blood Count 2.7 th/mm3 (4.0-11.0)
[2018-02-23 04:46] LABS: Hematocrit 20.2 % (39.0-51.0); Hemoglobin 6.9 gm/dL (13.0-17.0)
[2018-02-23 04:58] LABS: Calcium 8.1 mg/dL (8.5-10.1); Carbon Dioxide 27.1 meq/L (21.0-32.0); Magnesium 2.1 mg/dL (1.5-2.5); Potassium 3.9 meq/L (3.5-5.1)
[2018-02-23] MEDS: Insulin NovoLOG Aspart Correctional Sugar Inj SQ SCH ×5 (05:13→21:13)
[2018-02-23 05:25] LABS: Baso % (Auto) 0.3 % (0.0-2.0); Eos % (Auto) 0.6 % (0.0-4.0); Hematocrit 22.3 % (39.0-51.0); Hemoglobin 7.6 gm/dL (13.0-17.0); Lymph # (Auto) 0.1 th/mm3 (1.0-4.8); Lymph % (Auto) 3.9 % (9.0-44.0); Mean Corpuscular HGB Conc 34.1 % (32.0-36.0); Mean Corpuscular Hemoglobin 31.4 pg (27.0-34.0); Mean Corpuscular Volume 92.3 fL (80.0-100.0); Mean Platelet Volume 7.9 fL (7.0-11.0); Mono # (Auto) 0.2 th/mm3 (0.0-0.9); Mono % (Auto) 7.8 % (0.0-8.0); Neut # (Auto) 2.7 th/mm3 (1.8-7.7); Neut % (Auto) 87.4 % (16.0-70.0); Platelet Count 109 th/mm3 (150-450); Red Blood Count 2.41 mil/mm3 (4.50-5.90); Red Cell Distribution Width 13.2 % (11.6-17.2); White Blood Count 3.1 th/mm3 (4.0-11.0)
[2018-02-23 05:29] LABS: Platelet Morphology Normal (Normal)
--- NOTE | 2018-02-23 08:54 | P.PNURO ---
Subjective Patient symptoms today: Pt seen and examined. Urine blood tinged and started on Amicar CBI yesterday. Few clots irrigated last PM. Objective Vital Signs: Vital Signs 02/22/18 09:00 02/22/18 10:00 02/22/18 11:00 Temperature Pulse Rate 72 80 78 Respiratory Rate Blood Pressure Pulse Oximetry 02/22/18 12:00 02/22/18 12:43 02/22/18 13:00 Temperature 98.3 F Pulse Rate 72 78 72 Respiratory Rate 16 Blood Pressure 162/75 H Pulse Oximetry 99 02/22/18 14:00 02/22/18 15:00 02/22/18 16:00 Temperature 97.9 F Pulse Rate 70 70 70 Respiratory Rate 16 Blood Pressure 155/85 H Pulse Oximetry 92 L 02/22/18 17:00 02/22/18 18:00 02/22/18 19:42 Temperature 98.3 F Pulse Rate 82 74 72 Respiratory Rate 18 Blood Pressure 150/69 H Pulse Oximetry 100 02/22/18 20:20 02/22/18 21:00 02/22/18 22:00 Temperature Pulse Rate 80 78 76 Respiratory Rate Blood Pressure Pulse Oximetry 02/22/18 23:00 02/23/18 00:00 02/23/18 01:00 Temperature 98.0 F Pulse Rate 70 63 65 Respiratory Rate 19 Blood Pressure 162/72 H Pulse Oximetry 98 02/23/18 02:10 02/23/18 03:45 02/23/18 04:42 Temperature 98.5 F Pulse Rate 70 72 71 Respiratory Rate 20 Blood Pressure 158/72 H Pulse Oximetry 96 02/23/18 05:00 02/23/18 06:00 02/23/18 07:21 Temperature 98.5 F Pulse Rate 73 72 69 Respiratory Rate 18 Blood Pressure 165/74 H Pulse Oximetry 69 L Intake & Output 02/22/18 02/23/18 02/23/18 18:59 06:59 18:59 Intake Total 2660 / 2660 480 / 480 Output Total 2599 / 2599 2875 / 2875 249 / 249 Balance 61 / 61 -2395 / -2395 -249 / -249 Weight 80 kg Intake: IV 260 / 260 Sodium Phosphate Inj 30 MMOL In 260 / 260 NS Inj 250 ML @ 40 mls/hr IV. SIG ONCE ONE Rx#:[id number] Oral 2400 / 2400 480 / 480 Output: Urine Amount (Catheter) 2599 / 2599 2875 / 2875 249 / 249 3-way Urethral 2599 / 2599 2875 / 2875 249 / 249 Other: Bladder Irrigation Fluid - Amount Instilled 3-way Urethral 500 300 264 Bladder Irrigation Fluid - Amount Drained 3-way Urethral 325 375 Date of Last Bowel Movement 02/22/18 Result Diagrams: 02/23/18 05:05 02/23/18 04:03 Medications and IVs: Active Medications Generic Name Dose Route Start Last Admin Trade Name Freq PRN Reason Stop Dose Admin Al Hydroxide/Mg Hydroxide 30 ml 02/17/18 01:28 02/21/18 08:25 Milk Of Magnesia Liq PO 30 ml Q12H PRN Administration Mild Constipation Albuterol 1 ampul 02/17/18 16:02 Duoneb Neb (Prn) NEB Q6HR NEB PRN WHEEZING Amlodipine Besylate 10 mg 02/23/18 09:00 Norvasc PO DAILY [facility] Bisacodyl 10 mg 02/20/18 16:02 Dulcolax Supp RECTAL PRN PRN CONSTIPATION Carvedilol 25 mg 02/17/18 09:00 02/22/18 21:14 Coreg PO 25 mg BID [facility] Administration Sodium Chloride 3,000 ml/ 0 ml 02/22/18 16:00 02/23/18 01:05 Aminocaproic Acid 3,000 mg IRRIGATION 3,000 irrig.soln Q24H [facility] Administration Dextrose 50 ml 02/18/18 09:43 D50w Vial IV.PUSH UNSCH PRN PER HYPOGLYCEMIA PROTOCOL Diphenhydramine HCl 25 mg 02/17/18 16:02 Benadryl PO Q6H PRN ITCHING Diphenhydramine HCl 25 mg 02/17/18 16:02 Benadryl Inj IV.PUSH Q6H PRN ITCHING Epinephrine HCl 0.1 mg 02/18/18 09:12 Epinephrine (1:10,000) Inj IV.PUSH ONCE PRN SBP<70 OR RESPIRATORY DISTRESS Epoetin Jitendra 4,000 unit 02/23/18 11:00 Epogen Inj SQ 02/23/18 11:01 ONCE@1100 ONE Glucagon 1 mg 02/18/18 09:43 Glucagon Inj OTHER PRN PRN for Hypoglycemia Protocol Ondansetron HCl 8 mg/ Dextrose 54 mls @ 200 mls/hr 02/17/18 16:02 IV.SIG ONCE PRN MILD NAUSEA Sodium Phosphate 15 mmol/ 155 mls @ 40 mls/hr 02/23/18 09:00 Sodium Chloride IV.SIG 02/23/18 12:52 ONCE ONE Insulin Aspart 0 unit 02/19/18 04:00 02/23/18 05:13 Novolog Insulin Suppl Scale Inj SQ Not Given Q4HR [facility] Protocol Insulin Detemir 5 unit 02/18/18 21:45 02/22/18 21:15 Levemir Inj SQ 5 unit HS [facility] Administration Lactulose 30 ml 02/17/18 01:28 Lactulose Liq PO DAILY PRN SEVERE CONSITIPATION Lidocaine HCl 5 ml 02/17/18 21:30 Xylocaine 2% Jelly OTHER ONCE [facility] Morphine Sulfate 2 mg 02/20/18 10:53 02/20/18 20:02 Morphine Inj IV.PUSH 2 mg Q4H PRN Administration ACUTE PAIN Mycophenolate Mofetil 750 mg 02/18/18 06:00 02/23/18 05:18 Cellcept PO 750 mg BID@0600,1800 [facility] Administration Naloxone HCl 0.4 mg 02/17/18 20:58 Narcan Inj IV.PUSH PRN PRN Resp rate < 10 Nystatin 5 ml 02/21/18 18:00 02/22/18 21:13 Mycostatin Liq SWISH-SWAL 5 ml QID [facility] Administration Ondansetron HCl 4 mg 02/17/18 16:02 Zofran Inj IV.PUSH Q6H PRN MILD NAUSEA Oxycodone/Acetaminophen 1 tab 02/19/18 08:28 02/20/18 06:04 Percocet 5/325 Mg PO 1 tab Q6H PRN Administration ABDOMINAL PAIN Pantoprazole Sodium 40 mg 02/18/18 09:00 02/22/18 10:17 Protonix PO 40 mg DAILY [facility] Administration Potassium Phos/Sodium Phos 500 mg 02/23/18 09:00 K-Phos Neutral PO BID [facility] Prednisone 20 mg 02/22/18 09:00 02/22/18 10:18 Deltasone PO 20 mg DAILY [facility] Administration Sennosides 17.2 mg 02/17/18 01:28 02/21/18 08:26 Senokot PO 17.2 mg Q12H PRN Administration Moderate Constipation Tacrolimus 5 mg 02/23/18 08:30 Prograf PO BID@0600,1800 [facility] Tamsulosin HCl 0.4 mg 02/19/18 09:00 02/22/18 10:17 Flomax PO 0.4 mg DAILY [facility] Administration Temazepam 15 mg 02/17/18 01:28 Restoril PO HS PRN INSOMNIA Trimethoprim/Sulfamethoxazole 1 tab 02/21/18 14:15 02/21/18 14:49 Bactrim Ds PO 1 tab MOWEFR [facility] Administration Valganciclovir 450 mg 02/21/18 14:15 02/22/18 10:18 Valcyte PO 450 mg DAILY [facility] Administration Objective Remarks: Abd: soft,nt,nd Arellano on CBI: pink in color 02/21 Abd:soft,nt,nd Arellano with clear urine. CBI off 02/22 Abd:soft,nt,nd Arellano: started on Amicar CBI 02/23 Abd:soft,nt,nd Arellano with blood tinged urine Assessment and Plan - Plan 77 y.o male s/p KTX with gross hematuria Recommend manually irrigating arellano Q6 hours to make sure there is no clot buildup. If so, recommend changing up to [address] Continue CBI. 02/21 77 y.o male s/p KTX with gross hematuria. Hematuria resolving. CBI off. Void trial in AM. 02/22 77 y.o male s/p KTX with gross hematuria [address] arellano placed and bladder irrigated; clot removed Will start Amicar CBI to clear urine. 02/23 77 y.o male s/p KTX with hematuria on Amicar CBI If urine does not clear today, will need cysto with fulguration tomorrow to stop bleeding Plan discussed with Dr. Solis
[2018-02-23] MEDS ORDERED: Sodium Phosphate Inj 15 MMOL in Sodium Chlor 0.9% Inj 150 ML IV.SIG ONE (09:00)
--- NOTE | 2018-02-23 09:11 | P.PN ---
Physical Exam Vital signs: Vital Signs 02/22/18 10:00 02/22/18 11:00 02/22/18 12:00 Temperature Pulse Rate 80 78 72 Respiratory Rate Blood Pressure Pulse Oximetry 02/22/18 12:43 02/22/18 13:00 02/22/18 14:00 Temperature 98.3 F Pulse Rate 78 72 70 Respiratory Rate 16 Blood Pressure 162/75 H Pulse Oximetry 99 02/22/18 15:00 02/22/18 16:00 02/22/18 17:00 Temperature 97.9 F Pulse Rate 70 70 82 Respiratory Rate 16 Blood Pressure 155/85 H Pulse Oximetry 92 L 02/22/18 18:00 02/22/18 19:42 02/22/18 20:20 Temperature 98.3 F Pulse Rate 74 72 80 Respiratory Rate 18 Blood Pressure 150/69 H Pulse Oximetry 100 02/22/18 21:00 02/22/18 22:00 02/22/18 23:00 Temperature 98.0 F Pulse Rate 78 76 70 Respiratory Rate 19 Blood Pressure 162/72 H Pulse Oximetry 98 02/23/18 00:00 02/23/18 01:00 02/23/18 02:10 Temperature Pulse Rate 63 65 70 Respiratory Rate Blood Pressure Pulse Oximetry 02/23/18 03:45 02/23/18 04:42 02/23/18 05:00 Temperature 98.5 F Pulse Rate 72 71 73 Respiratory Rate 20 Blood Pressure 158/72 H Pulse Oximetry 96 02/23/18 06:00 02/23/18 07:00 02/23/18 07:21 Temperature 98.5 F Pulse Rate 72 68 69 Respiratory Rate 18 Blood Pressure 165/74 H Pulse Oximetry 69 L 02/23/18 08:00 Temperature Pulse Rate 74 Respiratory Rate Blood Pressure Pulse Oximetry Intake & Output 02/22/18 02/23/18 02/23/18 18:59 06:59 18:59 Intake Total 2660 / 2660 480 / 480 Output Total 2599 / 2599 2875 / 2875 249 / 249 Balance 61 / 61 -2395 / -2395 -249 / -249 Weight 80 kg Intake: IV 260 / 260 Sodium Phosphate Inj 30 MMOL In 260 / 260 NS Inj 250 ML @ 40 mls/hr IV. SIG ONCE ONE Rx#:[id number] Oral 2400 / 2400 480 / 480 Output: Urine Amount (Catheter) 2599 / 259 2875 / 2875 249 / 249 3-way Urethral 259 / 2599 2875 / 2875 249 / 249 Other: Bladder Irrigation Fluid - Amount Instilled 3-way Urethral 500 300 264 Bladder Irrigation Fluid - Amount Drained 3-way Urethral 325 375 Date of Last Bowel Movement 02/22/18 Narrative: Subjective: Follow up s/p Cadaveric renal transplant on 02/17/2018. Still with hematuria. H&H is stable. He is up in the chair. He denies any shortness of breath or chest pain no lightheadedness. No pain in his abdomen or pelvic area. No n/v/d/c. No fever, chills. Physical Exam GENERAL: Alert, Oriented x 3, NAD SKIN: Warm and dry. HEAD: Normocephalic. EYES: No scleral icterus. No injection or drainage. NECK: Supple, trachea midline. No JVD or lymphadenopathy. CARDIOVASCULAR: Regular rate and rhythm without murmurs, gallops, or rubs. RESPIRATORY: Breath sounds equal bilaterally. No accessory muscle use. Genito cortical problems appears stable at this time continue medications hypertension controlled at this time monitor restart home medications for patient has creatinine is high hold losartan continue metoprolol 25 mg twice daily: Arellano with bloody urine GASTROINTESTINAL: Abdomen soft, non-tender, nondistended. MUSCULOSKELETAL: No cyanosis, or edema. BACK: Nontender without obvious deformity. No CVA tenderness. Assessment and Plan Mr. Matthews is a pleasant 77 year old male with a history of DM, HTN, ESRD on MWF hemodialysis who took a flight to come back to [place] after he was informed for matched kidney for transplant. At the time of this interview, he is hemodynamically stable and remains in good spirit. Hematuria. Consult urology. Seen by Dr. Mccormick and patient had a artery irrigation. Follow recommendation pulmonology. [address] arellano placed and bladder irrigated; clot removed Amicar CBI to clear urine. Continue flomax End stage Renal disease -s/p renal transplant. Currently on Cellcept, Prograf. -Transplant surgery, Urology, Nephrology following. -continue Immunosuppression per renal transplant surgeon recommendations : Thymo induction; Maint: steroids + Cellcept 750 mg BID + prograf 5 mg bid - Diabetes mellitus - Controlled with lifestyle modifications. - Will keep him on sliding scale insulin. Goal BG 140-180 in the hospital. - Levemir 5 units QHS. Hypertension - Currently Carvedilol 25mg BID and Amlodipine 5mg Qday. Monitor Full code. Ambulation. Pharmacological DVT prophylaxis per Transplant surgeon. Discussed with the patient, nurse. - Urinary Catheter Management 3-way Urethral Cath placed during this visit: yes, but has since been removed by the nurse Urethral indwelling: Yes Reason for continuing: Hourly intake/output Insertion date: 02/17/18 Insertion time: 17:45 Removal date: 02/17/18 Removal time: 17:30 Results - Labs CBC & Chem 7: 02/23/18 05:05 02/23/18 04:03 Laboratory Results - last 24 hr 02/22/18 02/22/18 02/22/18 05:00 09:23 12:28 WBC RBC Hgb 8.5 L Hct 24.7 L MCV MCH MCHC RDW Plt Count MPV Prelim Diff (Auto) Neut % (Auto) Lymph % (Auto) [place] % (Auto) Eos % (Auto) Baso % (Auto) Neut # (Auto) Lymph # (Auto) [place] # (Auto) Eos # (Auto) Baso # (Auto) WBC Differential Diff Scan Differential Comment Platelet Estimate Platelet Morphology Sodium Potassium Chloride Carbon Dioxide Anion Gap BUN Creatinine Estimated GFR POC Glucose 260 H Random Glucose Calcium Phosphorus Magnesium Tacrolimus 4.9 L 02/22/18 02/22/18 02/22/18 16:30 20:51 23:03 WBC RBC Hgb Hct MCV MCH MCHC RDW Plt Count MPV Prelim Diff (Auto) Neut % (Auto) Lymph % (Auto) [place] % (Auto) Eos % (Auto) Baso % (Auto) Neut # (Auto) Lymph # (Auto) [place] # (Auto) Eos # (Auto) Baso # (Auto) WBC Differential Diff Scan Differential Comment Platelet Estimate Platelet Morphology Sodium Potassium Chloride Carbon Dioxide Anion Gap BUN Creatinine Estimated GFR POC Glucose 189 H 244 H 175 H Random Glucose Calcium Phosphorus Magnesium Tacrolimus 02/23/18 02/23/18 02/23/18 03:11 04:03 04:03 WBC 2.7 L RBC 2.19 L Hgb 6.9 L* Hct 20.2 L* MCV 92.4 MCH 31.5 MCHC 34.1 RDW 13.5 Plt Count 99 L MPV 7.6 Prelim Diff (Auto) Slide review pending Neut % (Auto) 85.8 H Lymph % (Auto) 4.3 L [place] % (Auto) 9.3 H Eos % (Auto) 0.4 Baso % (Auto) 0.2 Neut # (Auto) 2.3 Lymph # (Auto) 0.1 L [place] # (Auto) 0.2 Eos # (Auto) 0.0 Baso # (Auto) 0.0 WBC Differential . Diff Scan Auto diff confirmed Differential Comment . Platelet Estimate Low L Platelet Morphology Normal Sodium 146 H Potassium 3.9 Chloride 113 H Carbon Dioxide 27.1 Anion Gap 6 BUN 23 H Creatinine 1.07 Estimated GFR 67 L POC Glucose 126 H Random Glucose 105 Calcium 8.1 L D Phosphorus 2.0 L Magnesium 2.1 Tacrolimus 02/23/18 02/23/18 05:05 08:02 WBC 3.1 L RBC 2.41 L Hgb 7.6 L Hct 22.3 L MCV 92.3 MCH 31.4 MCHC 34.1 RDW 13.2 Plt Count 109 L MPV 7.9 Prelim Diff (Auto) Neut % (Auto) 87.4 H Lymph % (Auto) 3.9 L [place] % (Auto) 7.8 Eos % (Auto) 0.6 Baso % (Auto) 0.3 Neut # (Auto) 2.7 Lymph # (Auto) 0.1 L [place] # (Auto) 0.2 Eos # (Auto) 0.0 Baso # (Auto) 0.0 WBC Differential . Diff Scan Differential Comment Auto diff final Platelet Estimate Platelet Morphology Sodium Potassium Chloride Carbon Dioxide Anion Gap BUN Creatinine Estimated GFR POC Glucose 155 H Random Glucose Calcium Phosphorus Magnesium Tacrolimus Assessment and Plan - Assessment (1) ESRD (end stage renal disease) Code(s): N18.6 - End stage renal disease Status: Acute (2) HTN (hypertension) Code(s): I10 - Essential (primary) hypertension Status: Acute (3) Diabetes mellitus Code(s): E11.9 - Type 2 diabetes mellitus without complications Status: Chronic
[2018-02-23] MEDS: Potassium Phos/Sodium Phos 250 MG Tablet PO SCH ×2 (09:23→21:13)
[2018-02-23] MEDS: predniSONE 20 MG Tablet PO SCH (09:24)
[2018-02-23] MEDS: Carvedilol 12.5 MG Tablet PO SCH ×2 (09:24→21:08)
[2018-02-23] MEDS: Nystatin Liq 500,000 UNIT/5 ML UDC SWISH-SWAL SCH ×4 (09:25→21:08)
[2018-02-23] MEDS: amLODIPine 5 MG Tablet PO SCH (09:26)
--- NOTE | 2018-02-23 09:34 | P.DIET ---
Nutritional Evaluation Type of nutrition evaluation: follow-up Screening comments: Nutrition Assessment f/u,nutrition education and discharge planning for DDKT pt Subjective Subjective Comments: Pt states he feel well and is eating well Objective - Diagnosis Kidney Transplant - Objective % IBW: 104 Body Weight Used for Calculations: Actual Energy Needs - Lower Range (kCal/kg): 25 Energy Needs - Upper Range (kCal/kg): 30 Lower Limit kCal/kg (kCals): 2,100 Upper Limit kCal/kg (kCals): 2,520 Lower Limit Protein Factor (Grams per Kg): 1.2 Upper Limit Protein Factor (Grams per Kg): 1.3 Lower Protein Needs (Protein): 101 Upper Protein Needs (Protein): 111 Fluid Factor (ml/kg): 30 Estimated Fluid Needs (ml): 2,520 Dietitian Reviewed in Medical Record: Current diet, Curent medications, Intake & Output, Labs Diet Order: 2199 ADA Objective Comments: Nutritional needs based on 84kg PMH: DM, Hyperparathyroidism, Melanoma, PNA, Neuropathy, HTN Labs include: K+ 3.9, Cr 1.07, Glu 105, POC 244, 175, 126 Phos 2.0 UOP: 2875mls, +1 BM 02/22 Assessment Assessment: Pt s/p DDKT POD #6. Pt's kidney continues to work well, still have problem with blood clots, reviewed Urology note. Pt's po intake is good, he is drinking up to 3L/day, mostly water. Answered any diet questions. Will continue to monitor pt's clinical course with the transplant team. Recommendations: Pt on 2199 ADA diet Kidney functioning well, still problems with blood clots Answered any diet questions Will follow pt with transplant team in the hospital In outpatient clinic, will reassess and provide nutrition education relative to clinical course. Dietitian to Monitor: Lab values, Renal labs, Intake & Output, Weight change, PO Intake, Medical course
[2018-02-23] MEDS ORDERED: Epoetin Alfa Inj 4,000 UNIT/ML Vial SQ ONE (11:00)
--- NOTE | 2018-02-23 12:17 | P.PNTS ---
Subjective Interval history: No new c/o. Pain well controlled. Physical Exam Vital signs: Vital Signs 02/22/18 12:43 02/22/18 13:00 02/22/18 14:00 Temperature 98.3 F Pulse Rate 78 72 70 Respiratory Rate 16 Blood Pressure 162/75 H Pulse Oximetry 99 02/22/18 15:00 02/22/18 16:00 02/22/18 17:00 Temperature 97.9 F Pulse Rate 70 70 82 Respiratory Rate 16 Blood Pressure 155/85 H Pulse Oximetry 92 L 02/22/18 18:00 02/22/18 19:42 02/22/18 20:20 Temperature 98.3 F Pulse Rate 74 72 80 Respiratory Rate 18 Blood Pressure 150/69 H Pulse Oximetry 100 02/22/18 21:00 02/22/18 22:00 02/22/18 23:00 Temperature 98.0 F Pulse Rate 78 76 70 Respiratory Rate 19 Blood Pressure 162/72 H Pulse Oximetry 98 02/23/18 00:00 02/23/18 01:00 02/23/18 02:10 Temperature Pulse Rate 63 65 70 Respiratory Rate Blood Pressure Pulse Oximetry 02/23/18 03:45 02/23/18 04:42 02/23/18 05:00 Temperature 98.5 F Pulse Rate 72 71 73 Respiratory Rate 20 Blood Pressure 158/72 H Pulse Oximetry 96 02/23/18 06:00 02/23/18 07:00 02/23/18 07:21 Temperature 98.5 F Pulse Rate 72 68 69 Respiratory Rate 18 Blood Pressure 165/74 H Pulse Oximetry 69 L 02/23/18 08:00 Temperature Pulse Rate 74 Respiratory Rate Blood Pressure Pulse Oximetry Intake & Output 02/22/18 02/23/18 02/23/18 18:59 06:59 18:59 Intake Total 2660 / 2660 480 / 480 Output Total 2599 / 2599 2875 / 2875 408 / 408 Balance 61 / 61 -2395 / -2395 -408 / -408 Weight 80 kg Intake: IV 260 / 260 Sodium Phosphate Inj 30 MMOL In 260 / 260 NS Inj 250 ML @ 40 mls/hr IV. SIG ONCE ONE Rx#:[id number] Oral 2400 / 2400 480 / 480 Output: Urine Amount (Catheter) 2599 / 2599 2875 / 2875 408 / 408 3-way Urethral 2599 / 2599 2875 / 2875 408 / 408 Other: Bladder Irrigation Fluid - Amount Instilled 3-way Urethral 500 300 299 Bladder Irrigation Fluid - Amount Drained 3-way Urethral 325 50 Date of Last Bowel Movement 02/22/18 - Constitutional no acute distress - Routine HEENT Exam Head: Present: normocephalic, atraumatic - Routine Respiratory Exam Present: CTA bilaterally - Routine Cardiovascular Exam Present: RRR, S1, S2 - Routine Abdominal Exam Present: soft, normoactive bowel sounds Comments: abd soft NT/ ND. wound CDI without eft - Routine Exam Comments: arellano with hematuria - Routine Extremities Exam Present: pulses intact Comments: calves soft NT B. intact distal pulses. No edema noted. - Routine Neurological Exam Present: alert, oriented X3 - Routine Psychiatric Exam Present: normal affect, normal thought process - Urinary Catheter Management 3-way Urethral Cath placed during this visit: yes, but has since been removed by the nurse Urethral indwelling: Yes Reason for continuing: Hourly intake/output Insertion date: 02/17/18 Insertion time: 17:45 Removal date: 02/17/18 Removal time: 17:30 Results - Labs CBC & Chem 7: 02/23/18 05:05 02/23/18 04:03 Laboratory Results - last 24 hr 02/22/18 02/22/18 02/22/18 05:00 12:28 16:30 WBC RBC Hgb Hct MCV MCH MCHC RDW Plt Count MPV Prelim Diff (Auto) Neut % (Auto) Lymph % (Auto) [place] % (Auto) Eos % (Auto) Baso % (Auto) Neut # (Auto) Lymph # (Auto) [place] # (Auto) Eos # (Auto) Baso # (Auto) WBC Differential Diff Scan Differential Comment Platelet Estimate Platelet Morphology Sodium Potassium Chloride Carbon Dioxide Anion Gap BUN Creatinine Estimated GFR POC Glucose 260 H 189 H Random Glucose Calcium Phosphorus Magnesium Tacrolimus 4.9 L 02/22/18 02/22/18 02/23/18 20:51 23:03 03:11 WBC RBC Hgb Hct MCV MCH MCHC RDW Plt Count MPV Prelim Diff (Auto) Neut % (Auto) Lymph % (Auto) [place] % (Auto) Eos % (Auto) Baso % (Auto) Neut # (Auto) Lymph # (Auto) [place] # (Auto) Eos # (Auto) Baso # (Auto) WBC Differential Diff Scan Differential Comment Platelet Estimate Platelet Morphology Sodium Potassium Chloride Carbon Dioxide Anion Gap BUN Creatinine Estimated GFR POC Glucose 244 H 175 H 126 H Random Glucose Calcium Phosphorus Magnesium Tacrolimus 02/23/18 02/23/18 02/23/18 04:03 04:03 05:05 WBC 2.7 L 3.1 L RBC 2.19 L 2.41 L Hgb 6.9 L* 7.6 L Hct 20.2 L* 22.3 L MCV 92.4 92.3 MCH 31.5 31.4 MCHC 34.1 34.1 RDW 13.5 13.2 Plt Count 99 L 109 L MPV 7.6 7.9 Prelim Diff (Auto) Slide review pending Neut % (Auto) 85.8 H 87.4 H Lymph % (Auto) 4.3 L 3.9 L [place] % (Auto) 9.3 H 7.8 Eos % (Auto) 0.4 0.6 Baso % (Auto) 0.2 0.3 Neut # (Auto) 2.3 2.7 Lymph # (Auto) 0.1 L 0.1 L [place] # (Auto) 0.2 0.2 Eos # (Auto) 0.0 0.0 Baso # (Auto) 0.0 0.0 WBC Differential . . Diff Scan Auto diff confirmed Differential Comment . Auto diff final Platelet Estimate Low L Platelet Morphology Normal Sodium 146 H Potassium 3.9 Chloride 113 H Carbon Dioxide 27.1 Anion Gap 6 BUN 23 H Creatinine 1.07 Estimated GFR 67 L POC Glucose Random Glucose 105 Calcium 8.1 L D Phosphorus 2.0 L Magnesium 2.1 Tacrolimus 02/23/18 02/23/18 08:02 11:51 WBC RBC Hgb Hct MCV MCH MCHC RDW Plt Count MPV Prelim Diff (Auto) Neut % (Auto) Lymph % (Auto) [place] % (Auto) Eos % (Auto) Baso % (Auto) Neut # (Auto) Lymph # (Auto) [place] # (Auto) Eos # (Auto) Baso # (Auto) WBC Differential Diff Scan Differential Comment Platelet Estimate Platelet Morphology Sodium Potassium Chloride Carbon Dioxide Anion Gap BUN Creatinine Estimated GFR POC Glucose 155 H 366 H Random Glucose Calcium Phosphorus Magnesium Tacrolimus Assessment and Plan - Assessment (1) HTN (hypertension) Code(s): I10 - Essential (primary) hypertension Status: Acute - Plan Post op Day: 4 Patient: Mr Matthews is status post DDKT for ESRD secondary to DM/HTN US x 2 postop, shows patent vessels. There is also a "clot" noted in the bladder Prophylaxis: Decubitus ulcer: patient awake, alert, and mobile CMV prophylaxis: ont valcyte PCP prophylaxis: on bactrim Consults: Transplant Nephrology Urologist Assessment and Plan: S/P DDKT to right iliac fossa. Allograft function: Creatinine normal- prograf resumed this AM.. CBI resumed yesterday by urology, amicar added to CBI but hematuria persists-plan for cysto with fulguration tomorrow by urology if hematuria persists -urology's assistance is appreciated. Abd soft, approp tender. Continue insulin sliding scale. Daily standing weight. B SCDs. On flomax. Oral analgesic prn. Immunosuppression: Thymo induction; Maint: steroids + Cellcept 750 mg BID + prograf 5 mg bid
[2018-02-23 16:32] LABS: Hemoglobin 7.1 gm/dL (13.0-17.0)
[2018-02-23 16:40] LABS: Hematocrit 20.2 % (39.0-51.0)
--- NOTE | 2018-02-23 18:29 | P.PNNP ---
Subjective Interval history: Patient seen in AM, no abd. pain, no SOB, eating well. Physical Exam Vital signs: Vital Signs 02/22/18 19:42 02/22/18 20:20 02/22/18 21:00 Temperature 98.3 F Pulse Rate 72 80 78 Respiratory Rate 18 Blood Pressure 150/69 H Pulse Oximetry 100 02/22/18 22:00 02/22/18 23:00 02/23/18 00:00 Temperature 98.0 F Pulse Rate 76 70 63 Respiratory Rate 19 Blood Pressure 162/72 H Pulse Oximetry 98 02/23/18 01:00 02/23/18 02:10 02/23/18 03:45 Temperature 98.5 F Pulse Rate 65 70 72 Respiratory Rate 20 Blood Pressure 158/72 H Pulse Oximetry 96 02/23/18 04:42 02/23/18 05:00 02/23/18 06:00 Temperature Pulse Rate 71 73 72 Respiratory Rate Blood Pressure Pulse Oximetry 02/23/18 07:00 02/23/18 07:21 02/23/18 08:00 Temperature 98.5 F Pulse Rate 68 69 74 Respiratory Rate 18 Blood Pressure 165/74 H Pulse Oximetry 96 02/23/18 09:00 02/23/18 10:00 02/23/18 11:00 Temperature 98.3 F Pulse Rate 78 70 69 Respiratory Rate 18 Blood Pressure 163/71 H Pulse Oximetry 99 02/23/18 12:00 02/23/18 13:00 02/23/18 14:00 Temperature Pulse Rate 68 66 64 Respiratory Rate Blood Pressure Pulse Oximetry 02/23/18 15:00 02/23/18 15:23 02/23/18 16:00 Temperature 98.6 F Pulse Rate 69 67 64 Respiratory Rate 18 Blood Pressure 139/66 Pulse Oximetry 98 02/23/18 17:00 02/23/18 18:00 Temperature Pulse Rate 66 72 Respiratory Rate Blood Pressure Pulse Oximetry Intake & Output 02/22/18 02/23/18 02/23/18 18:59 06:59 18:59 Intake Total 2660 / 2660 480 / 480 155 / 155 Output Total 2599 / 2599 2875 / 2875 2223 / 2223 Balance 61 / 61 -2395 / -2395 -2067 / -2067 Weight 80 kg Intake: IV 260 / 260 155 / 155 Sodium Phosphate Inj 15 MMOL In 155 / 155 NS Inj 150 ML @ 40 mls/hr IV. SIG ONCE ONE Rx#:[id number] Sodium Phosphate Inj 30 MMOL In 260 / 260 NS Inj 250 ML @ 40 mls/hr IV. SIG ONCE ONE Rx#:[id number] Oral 2400 / 2400 480 / 480 Output: Urine Amount (Catheter) 2599 / 2599 2875 / 2875 2223 / 2223 3-way Urethral 2599 / 2599 2875 / 2875 2223 / 2223 Other: Bladder Irrigation Fluid - Amount Instilled 3-way Urethral 500 300 208 Bladder Irrigation Fluid - Amount Drained 3-way Urethral 325 350 Date of Last Bowel Movement 02/23/18 Narrative: Physical Exam GENERAL: Alert, Oriented x 3, NAD SKIN: Warm and dry. HEAD: Normocephalic. EYES: No scleral icterus. No injection or drainage. NECK: Supple, trachea midline. No JVD or lymphadenopathy. CARDIOVASCULAR: Regular rate and rhythm without murmurs, gallops, or rubs. RESPIRATORY: Breath sounds equal bilaterally. No accessory muscle use. Genito cortical problems appears stable at this time continue medications hypertension controlled at this time monitor restart home medications for patient has creatinine is high hold losartan continue metoprolol 25 mg twice daily: Vargas with bloody urine GASTROINTESTINAL: Abdomen soft, non-tender, nondistended. MUSCULOSKELETAL: No cyanosis, or edema. BACK: Nontender without obvious deformity. No CVA tenderness. - Constitutional no acute distress - Routine HEENT Exam Head: Present: normocephalic - Routine Neck Exam Present: supple - Routine Respiratory Exam Present: decreased breath sounds, CTA bilaterally, rhonchi - Routine Cardiovascular Exam Present: RRR, S1, S2 - Routine Abdominal Exam Present: soft, normoactive bowel sounds, distended - Routine Neurological Exam Present: alert, oriented X3 - Urinary Catheter Management 3-way Urethral Cath placed during this visit: yes, but has since been removed by the nurse Urethral indwelling: Yes Reason for continuing: Hourly intake/output Insertion date: 02/17/18 Insertion time: 17:45 Removal date: 02/17/18 Removal time: 17:30 Assessment and Plan - Plan 77-year-old male with a past medical history of hypertension, diabetes mellitus, end-stage renal disease on hemodialysis for the last 1 year, history of adrenal hyperplasia, hyperparathyroidism. The patient has been on hemodialysis for 1 year, has been following with Dr. Corbin and according to the patient, he was told that his kidneys are failing because of the diabetes.The patient was called for cadaveric transplant. 1. Post-cadaveric renal transplant. 2. Hypertension. 3. Diabetes mellitus. 4. Anemia and thrombocytopenia. 5. Hypocalcemia and history of hyperparathyroidism. The patient has cadaveric renal transplant done on 02/18/18. Creatinine improving with good UOP Hematuria is improving, now off CBI,On flomax Ongoing HTN on Norvasc 5mg daily, BP is better. Hgb. is low and stable, WBC low, possibly due to ATG. Now on Prograf, level was low, increased to 5 mg BID. Creatinine continue to improve. Urology following for Hematuria, will need Cystoscopy today.
[2018-02-23] MEDS: Insulin Detemir Inj 1,000 UNIT/10 ML Vial SQ SCH (21:13)
[2018-02-23 23:13] LABS: Hemoglobin 7.2 gm/dL (13.0-17.0)
[2018-02-23 23:23] LABS: Hematocrit 20.7 % (39.0-51.0)
[2018-02-24] MEDS ORDERED: Chlorhexidine Gluconate 2% 1 Pack (2 Cloths) TOPICAL SCH (04:00)
[2018-02-24] MEDS ORDERED: Sodium Chlor 0.9% Inj 500 ML IV.SIG SCH (04:00)
[2018-02-24 05:25] LABS: Baso % (Auto) 0.2 % (0.0-2.0); Eos % (Auto) 0.8 % (0.0-4.0); Hematocrit 27.2 % (39.0-51.0); Hemoglobin 9.5 gm/dL (13.0-17.0); Lymph # (Auto) 0.2 th/mm3 (1.0-4.8); Lymph % (Auto) 3.7 % (9.0-44.0); Mean Corpuscular HGB Conc 34.9 % (32.0-36.0); Mean Corpuscular Hemoglobin 32.2 pg (27.0-34.0); Mean Corpuscular Volume 92.4 fL (80.0-100.0); Mean Platelet Volume 7.5 fL (7.0-11.0); Mono # (Auto) 0.4 th/mm3 (0.0-0.9); Mono % (Auto) 7.2 % (0.0-8.0); Neut # (Auto) 4.5 th/mm3 (1.8-7.7); Neut % (Auto) 88.1 % (16.0-70.0); Platelet Count 125 th/mm3 (150-450); Red Blood Count 2.94 mil/mm3 (4.50-5.90); Red Cell Distribution Width 13.5 % (11.6-17.2); White Blood Count 5.1 th/mm3 (4.0-11.0)
[2018-02-24] MEDS: Sodium Chloride 0.9% Irr Bag 3,000 ML, Aminocaproic Acid Inj 3,000 MG IRRIGATION SCH ×4 (05:52→15:03)
[2018-02-24 05:59] LABS: Calcium 8.3 mg/dL (8.5-10.1); Carbon Dioxide 25.9 meq/L (21.0-32.0); Phosphorus 2.2 mg/dL (2.5-4.9); Potassium 3.7 meq/L (3.5-5.1)
[2018-02-24] MEDS: Potassium Phos/Sodium Phos 250 MG Tablet PO SCH ×2 (09:39→22:29)
[2018-02-24] MEDS: Insulin NovoLOG Aspart Correctional Sugar Inj SQ SCH ×4 (09:39→22:31)
[2018-02-24] MEDS: Nystatin Liq 500,000 UNIT/5 ML UDC SWISH-SWAL SCH ×4 (09:40→22:31)
[2018-02-24] MEDS: Carvedilol 12.5 MG Tablet PO SCH ×2 (09:40→22:28)
[2018-02-24] MEDS: amLODIPine 5 MG Tablet PO SCH (09:40)
[2018-02-24] MEDS: predniSONE 20 MG Tablet PO SCH (09:44)
[2018-02-24] MEDS ORDERED: Sodium Phosphate Inj 15 MMOL in Sodium Chlor 0.9% Inj 150 ML IV.SIG ONE (10:00)
[2018-02-24] MEDS ORDERED: Phenylephrine/NS 1000 MCG/10ML Syringe IV.PUSH ONE (12:00)
[2018-02-24] MEDS ORDERED: Lidocaine PF 1% Inj 5 ML Syringe INFILTRATN ONE (12:00)
[2018-02-24] MEDS ORDERED: Sugammadex Inj 200 MG/2 ML Vial IV.PUSH ONE (12:51)
--- NOTE | 2018-02-24 13:21 | P.OP ---
- Preoperative Diagnosis (1) Gross hematuria (2) Clot retention of urine (3) Clot retention of urine - Postoperative Diagnosis (1) Gross hematuria Date of procedure: 02/24/18 Procedure: Cystoscopy with evacuation of clot and fulguration of bleeding Anesthesia: EDUARDO other Surgeon: Wesley Mccormick DO Estimated blood loss (mL): 5 Operation and Findings: 77-year-old male who underwent a kidney transplant on 02/17/2018. Patient developed gross hematuria with clot retention postoperatively. Patient with a history of BPH with obstruction who is undergone prostate surgery in the past. Decision made to bring the patient to the operating room to undergo cystoscopy with clot evacuation and fulguration of any bleeding. Risk and benefits were discussed preoperatively and the patient was willing to proceed. Patient was brought to the operating room and identified by myself as Grabiel Cassie. He is placed in the dorsal lithotomy position, prepped and draped in usual sterile fashion, received preprocedure antibiotics and general endotracheal tube anesthesia was administered. The 24 German resectoscope sheath with the visual obturator was inserted carefully into the urethra. Upon entering the prostatic urethra some coaptation with erythema was identified. A large amount of clot was identified within the bladder and using the iliac evacuator the clot was then removed. Once all the clot was cleared from the bladder, at the 11 o'clock position of the bladder neck near the ureteral miri-cystotomy, bleeding was identified. Using the rollerball, this area was carefully fulgurated. There was some mild bleeding also noted in the area of the prostatic urethra around the 12 o'clock position. This area was also fulgurated. Once hemostasis was obtained and there was no more evidence of bleeding the bladder was evacuated and then refilled. No other evidence of bleeding was identified. Decision was made to leave the Vargas catheter out at this time. The patient was awoken and extubated and transferred recovery in stable condition. He tolerated the procedure well.
[2018-02-24] MEDS ORDERED: fentaNYL Citrate Inj 100 MCG/2 ML Ampul ONE (13:30)
--- NOTE | 2018-02-24 15:06 | P.PN ---
Physical Exam Vital signs: Vital Signs 02/23/18 15:23 02/23/18 16:00 02/23/18 17:00 Temperature 98.6 F Pulse Rate 67 64 66 Respiratory Rate 18 Blood Pressure 139/66 Pulse Oximetry 98 02/23/18 18:00 02/23/18 19:25 02/23/18 19:35 Temperature 98.6 F Pulse Rate 72 65 70 Respiratory Rate 19 Blood Pressure 165/73 H Pulse Oximetry 98 02/23/18 20:00 02/23/18 21:00 02/23/18 22:00 Temperature Pulse Rate 70 72 70 Respiratory Rate Blood Pressure Pulse Oximetry 02/23/18 23:35 02/24/18 00:00 02/24/18 01:07 Temperature 98.1 F 98.3 F Pulse Rate 66 60 65 Respiratory Rate 18 18 Blood Pressure 156/72 H 153/69 H Pulse Oximetry 99 99 02/24/18 01:12 02/24/18 01:17 02/24/18 01:25 Temperature 98.5 F 98.5 F 98.4 F Pulse Rate 64 62 62 Respiratory Rate 18 19 19 Blood Pressure 145/63 H 151/71 H 155/67 H Pulse Oximetry 99 99 98 02/24/18 01:38 02/24/18 02:14 02/24/18 03:45 Temperature 98.0 F Pulse Rate 61 69 64 Respiratory Rate 17 Blood Pressure 162/74 H Pulse Oximetry 94 L 02/24/18 04:35 02/24/18 05:02 02/24/18 05:07 Temperature 98.2 F Pulse Rate 68 75 Respiratory Rate 18 Blood Pressure 133/64 Pulse Oximetry 02/24/18 05:14 02/24/18 05:25 02/24/18 05:48 Temperature 98.9 F 98.7 F Pulse Rate 70 70 62 Respiratory Rate 18 19 Blood Pressure 126/58 L 119/58 L Pulse Oximetry 100 02/24/18 06:00 02/24/18 07:00 02/24/18 08:00 Temperature 98.2 F Pulse Rate 68 65 64 Respiratory Rate 17 Blood Pressure 177/83 H Pulse Oximetry 02/24/18 09:00 02/24/18 10:00 02/24/18 11:00 Temperature Pulse Rate 78 70 69 Respiratory Rate Blood Pressure Pulse Oximetry 02/24/18 13:00 02/24/18 13:18 02/24/18 13:30 Temperature 98.4 F Pulse Rate 67 67 67 Respiratory Rate 12 12 Blood Pressure 135/67 164/72 H Pulse Oximetry 99 02/24/18 13:45 02/24/18 13:55 Temperature 98.1 F Pulse Rate 67 67 Respiratory Rate 12 Blood Pressure 155/70 H Pulse Oximetry Intake & Output 02/23/18 02/24/18 02/24/18 18:59 06:59 18:59 Intake Total 155 / 155 1120 / 1120 355 / 355 Output Total 222 / 2223 2684 / 2684 428 / 428 Balance -2068 / -2068 -1564 / -1564 -73 / -73 Weight 80.3 kg Intake: IV 155 / 155 255 / 255 Sodium Phosphate Inj 15 MMOL In 155 / 155 155 / 155 NS Inj 150 ML @ 40 mls/hr IV. SIG ONCE ONE Rx#:[id number] Ancef Inj 1,000 MG In NS Inj 100 / 100 100 ML @ 100 mls/hr IV.SIG ONCE ONE Rx#:[id number] Oral 720 / 720 Anesthesia Amount 100 / 100 Intake (Blood Product) Amt 400 / 400 Rbc As-3 Leukoreduced Unit 0 / 0 [id number] Rbc As-3 Leukoreduced Unit 400 / 400 [id number] Output: Estimated Blood Loss 20 / 20 Urine Amount (Catheter) 2222 / 2223 2684 / 2684 408 / 408 3-way Urethral 2222 / 222 2684 / 2684 408 / 408 Other: Bladder Irrigation Fluid - Amount Instilled 3-way Urethral 208 224 221 Bladder Irrigation Fluid - Amount Drained 3-way Urethral 350 750 275 Date of Last Bowel Movement 02/23/18 Narrative: Subjective: Follow up s/p Cadaveric renal transplant on 02/17/2018. Hematuria Still with hematuria. went for clot retreival and fulguration. Was transfused last night. He is up in the chair. He denies any shortness of breath or chest pain no lightheadedness. No pain in his abdomen or pelvic area. No n/v/d/c. No fever, chills. Physical Exam GENERAL: Alert, Oriented x 3, NAD SKIN: Warm and dry. HEAD: Normocephalic. EYES: No scleral icterus. No injection or drainage. NECK: Supple, trachea midline. No JVD or lymphadenopathy. CARDIOVASCULAR: Regular rate and rhythm without murmurs, gallops, or rubs. RESPIRATORY: Breath sounds equal bilaterally. No accessory muscle use. Genito cortical problems appears stable at this time continue medications hypertension controlled at this time monitor restart home medications for patient has creatinine is high hold losartan continue metoprolol 25 mg twice daily: Arellano with bloody urine GASTROINTESTINAL: Abdomen soft, non-tender, nondistended. MUSCULOSKELETAL: No cyanosis, or edema. BACK: Nontender without obvious deformity. No CVA tenderness. Assessment and Plan Mr. Matthews is a pleasant 77 year old male with a history of DM, HTN, ESRD on MWF hemodialysis who took a flight to come back to [place] after he was informed for matched kidney for transplant. At the time of this interview, he is hemodynamically stable and remains in good spirit. Hematuria. Consult urology. Seen by Dr. Mccormick and patient had a artery irrigation. Follow recommendation pulmonology. [address]llano placed and bladder irrigated; clot removed Amicar CBI to clear urine. Continue flomax S/P Cystoscopy with evacuation of clot and fulguration of bleeding by Dr Mccormick on 02/24/18 End stage Renal disease -s/p renal transplant. Currently on Cellcept, Prograf. -Transplant surgery, Urology, Nephrology following. -continue Immunosuppression per renal transplant surgeon recommendations : Thymo induction; Maint: steroids + Cellcept 750 mg BID + prograf 5 mg bid - Diabetes mellitus - Controlled with lifestyle modifications. - Will keep him on sliding scale insulin. Goal BG 140-180 in the hospital. - Levemir 5 units QHS. Hypertension - Currently Carvedilol 25mg BID and Amlodipine 5mg Qday. Monitor Full code. Ambulation. Pharmacological DVT prophylaxis per Transplant surgeon. Discussed with the patient, nurse, . - Urinary Catheter Management 3-way Urethral Cath placed during this visit: yes, but has since been removed by the nurse Urethral indwelling: Yes Reason for continuing: Gross Hematuria Insertion date: 02/17/18 Insertion time: 17:45 Removal date: 02/17/18 Removal time: 17:30 Results - Labs CBC & Chem 7: 02/24/18 05:03 02/24/18 05:03 Laboratory Results - last 24 hr 02/23/18 02/23/18 02/23/18 16:10 16:25 19:07 WBC RBC Hgb 7.1 L Hct 20.2 L* MCV MCH MCHC RDW Plt Count MPV Neut % (Auto) Lymph % (Auto) [place] % (Auto) Eos % (Auto) Baso % (Auto) Neut # (Auto) Lymph # (Auto) [place] # (Auto) Eos # (Auto) Baso # (Auto) WBC Differential Differential Comment Sodium Potassium Chloride Carbon Dioxide Anion Gap BUN Creatinine Estimated GFR POC Glucose 261 H Random Glucose Calcium Phosphorus Magnesium Tacrolimus Blood Type O Negative Antibody Screen Negative MTS Gel Crossmatch Bld Prod Order Comment 02/23/18 02/23/18 02/24/18 20:15 23:01 00:36 WBC RBC Hgb 7.2 L Hct 20.7 L* MCV MCH MCHC RDW Plt Count MPV Neut % (Auto) Lymph % (Auto) [place] % (Auto) Eos % (Auto) Baso % (Auto) Neut # (Auto) Lymph # (Auto) [place] # (Auto) Eos # (Auto) Baso # (Auto) WBC Differential Differential Comment Sodium Potassium Chloride Carbon Dioxide Anion Gap BUN Creatinine Estimated GFR POC Glucose 246 H Random Glucose Calcium Phosphorus Magnesium Tacrolimus Blood Type Antibody Screen MTS Gel Crossmatch See Detail Bld Prod Order Comment 02/24/18 02/24/18 02/24/18 05:03 05:03 05:03 WBC 5.1 D RBC 2.94 L Hgb 9.5 L D Hct 27.2 L MCV 92.4 MCH 32.2 MCHC 34.9 RDW 13.5 Plt Count 125 L MPV 7.5 Neut % (Auto) 88.1 H Lymph % (Auto) 3.7 L [place] % (Auto) 7.2 Eos % (Auto) 0.8 Baso % (Auto) 0.2 Neut # (Auto) 4.5 Lymph # (Auto) 0.2 L [place] # (Auto) 0.4 Eos # (Auto) 0.0 Baso # (Auto) 0.0 WBC Differential . Differential Comment Auto diff final Sodium 144 Potassium 3.7 Chloride 109 H Carbon Dioxide 25.9 Anion Gap 9 BUN 22 H Creatinine 1.19 Estimated GFR 59 L POC Glucose Random Glucose 102 Calcium 8.3 L Phosphorus 2.2 L Magnesium 2.0 Tacrolimus 9.9 Blood Type Antibody Screen MTS Gel Crossmatch Bld Prod Order Comment 02/24/18 08:26 WBC RBC Hgb Hct MCV MCH MCHC RDW Plt Count MPV Neut % (Auto) Lymph % (Auto) [place] % (Auto) Eos % (Auto) Baso % (Auto) Neut # (Auto) Lymph # (Auto) [place] # (Auto) Eos # (Auto) Baso # (Auto) WBC Differential Differential Comment Sodium Potassium Chloride Carbon Dioxide Anion Gap BUN Creatinine Estimated GFR POC Glucose 146 H Random Glucose Calcium Phosphorus Magnesium Tacrolimus Blood Type Antibody Screen MTS Gel Crossmatch Bld Prod Order Comment Assessment and Plan - Assessment (1) ESRD (end stage renal disease) Code(s): N18.6 - End stage renal disease Status: Acute (2) HTN (hypertension) Code(s): I10 - Essential (primary) hypertension Status: Acute (3) Diabetes mellitus Code(s): E11.9 - Type 2 diabetes mellitus without complications Status: Chronic
--- NOTE | 2018-02-24 15:19 | P.PNNP ---
Subjective Interval history: Patient seen after the cystoscopy, feeling better, passed the urine and it is clear. Physical Exam Vital signs: Vital Signs 02/23/18 15:23 02/23/18 16:00 02/23/18 17:00 Temperature 98.6 F Pulse Rate 67 64 66 Respiratory Rate 18 Blood Pressure 139/66 Pulse Oximetry 98 02/23/18 18:00 02/23/18 19:25 02/23/18 19:35 Temperature 98.6 F Pulse Rate 72 65 70 Respiratory Rate 19 Blood Pressure 165/73 H Pulse Oximetry 98 02/23/18 20:00 02/23/18 21:00 02/23/18 22:00 Temperature Pulse Rate 70 72 70 Respiratory Rate Blood Pressure Pulse Oximetry 02/23/18 23:35 02/24/18 00:00 02/24/18 01:07 Temperature 98.1 F 98.3 F Pulse Rate 66 60 65 Respiratory Rate 18 18 Blood Pressure 156/72 H 153/69 H Pulse Oximetry 99 99 02/24/18 01:12 02/24/18 01:17 02/24/18 01:25 Temperature 98.5 F 98.5 F 98.4 F Pulse Rate 64 62 62 Respiratory Rate 18 19 19 Blood Pressure 145/63 H 151/71 H 155/67 H Pulse Oximetry 99 99 98 02/24/18 01:38 02/24/18 02:14 02/24/18 03:45 Temperature 98.0 F Pulse Rate 61 69 64 Respiratory Rate 17 Blood Pressure 162/74 H Pulse Oximetry 94 L 02/24/18 04:35 02/24/18 05:02 02/24/18 05:07 Temperature 98.2 F Pulse Rate 68 75 Respiratory Rate 18 Blood Pressure 133/64 Pulse Oximetry 02/24/18 05:14 02/24/18 05:25 02/24/18 05:48 Temperature 98.9 F 98.7 F Pulse Rate 70 70 62 Respiratory Rate 18 19 Blood Pressure 126/58 L 119/58 L Pulse Oximetry 100 02/24/18 06:00 02/24/18 07:00 02/24/18 08:00 Temperature 98.2 F Pulse Rate 68 65 64 Respiratory Rate 17 Blood Pressure 177/83 H Pulse Oximetry 02/24/18 09:00 02/24/18 10:00 02/24/18 11:00 Temperature Pulse Rate 78 70 69 Respiratory Rate Blood Pressure Pulse Oximetry 02/24/18 13:00 02/24/18 13:18 02/24/18 13:30 Temperature 98.4 F Pulse Rate 67 67 67 Respiratory Rate 12 12 Blood Pressure 135/67 164/72 H Pulse Oximetry 99 02/24/18 13:45 02/24/18 13:55 Temperature 98.1 F Pulse Rate 67 67 Respiratory Rate 12 Blood Pressure 155/70 H Pulse Oximetry Intake & Output 02/23/18 02/24/18 02/24/18 18:59 06:59 18:59 Intake Total 155 / 155 1120 / 1120 355 / 355 Output Total 2223 / 2223 2684 / 2684 428 / 428 Balance -2068 / -2068 -1564 / -1564 -73 / -73 Weight 80.3 kg Intake: IV 155 / 155 255 / 255 Sodium Phosphate Inj 15 MMOL In 155 / 155 155 / 155 NS Inj 150 ML @ 40 mls/hr IV. SIG ONCE ONE Rx#:[id number] Ancef Inj 1,000 MG In NS Inj 100 / 100 100 ML @ 100 mls/hr IV.SIG ONCE ONE Rx#:[id number] Oral 720 / 720 Anesthesia Amount 100 / 100 Intake (Blood Product) Amt 400 / 400 Rbc As-3 Leukoreduced Unit 0 / 0 [id number] Rbc As-3 Leukoreduced Unit 400 / 400 [id number] Output: Estimated Blood Loss 20 / 20 Urine Amount (Catheter) 2223 / 2223 2684 / 2684 408 / 408 3-way Urethral 2223 / 2223 2684 / 2684 408 / 408 Other: Bladder Irrigation Fluid - Amount Instilled 3-way Urethral 208 224 221 Bladder Irrigation Fluid - Amount Drained 3-way Urethral 350 750 275 Date of Last Bowel Movement 02/23/18 Narrative: GENERAL: Alert, Oriented x 3, NAD SKIN: Warm and dry. HEAD: Normocephalic. EYES: No scleral icterus. No injection or drainage. NECK: Supple, trachea midline. No JVD or lymphadenopathy. CARDIOVASCULAR: Regular rate and rhythm without murmurs, gallops, or rubs. RESPIRATORY: Breath sounds equal bilaterally. No accessory muscle use. Genito cortical problems appears stable at this time continue medications hypertension controlled at this time monitor restart home medications for patient has creatinine is high hold losartan continue metoprolol 25 mg twice daily: Vargas with bloody urine GASTROINTESTINAL: Abdomen soft, non-tender, nondistended. MUSCULOSKELETAL: No cyanosis, or edema. BACK: Nontender without obvious deformity. No CVA tenderness. - Urinary Catheter Management 3-way Urethral Cath placed during this visit: yes, but has since been removed by the nurse Urethral indwelling: Yes Reason for continuing: Gross Hematuria Insertion date: 02/17/18 Insertion time: 17:45 Removal date: 02/17/18 Removal time: 17:30 Assessment and Plan - Plan 77-year-old male with a past medical history of hypertension, diabetes mellitus, end-stage renal disease on hemodialysis for the last 1 year, history of adrenal hyperplasia, hyperparathyroidism. The patient has been on hemodialysis for 1 year, has been following with Dr. Corbin and according to the patient, he was told that his kidneys are failing because of the diabetes.The patient was called for cadaveric transplant. 1. Post-cadaveric renal transplant. 2. Hypertension. 3. Diabetes mellitus. 4. Anemia and thrombocytopenia. 5. Hypocalcemia and history of hyperparathyroidism. The patient has cadaveric renal transplant done on 02/18/18. Creatinine improving with good UOP Hematuria is improving, now off CBI,On Flomax Ongoing HTN on Norvasc 5mg daily, BP is better. Hgb. is better after transfusion. Now on Prograf, level is 9.9, on 5 mg BID. Creatinine continue to improve. Urology following , post cystoscopy, Vargas's catheter was removed. Hematuria is better. If stable, possible D/C tomorrow.
--- NOTE | 2018-02-24 16:10 | P.PNTS ---
Subjective Interval history: Some bladder discomfort this morning (? due to clots) Physical Exam Vital signs: Vital Signs 02/23/18 17:00 02/23/18 18:00 02/23/18 19:25 Temperature 98.6 F Pulse Rate 66 72 65 Respiratory Rate 19 Blood Pressure 165/73 H Pulse Oximetry 98 02/23/18 19:35 02/23/18 20:00 02/23/18 21:00 Temperature Pulse Rate 70 70 72 Respiratory Rate Blood Pressure Pulse Oximetry 02/23/18 22:00 02/23/18 23:35 02/24/18 00:00 Temperature 98.1 F Pulse Rate 70 66 60 Respiratory Rate 18 Blood Pressure 156/72 H Pulse Oximetry 99 02/24/18 01:07 02/24/18 01:12 02/24/18 01:17 Temperature 98.3 F 98.5 F 98.5 F Pulse Rate 65 64 62 Respiratory Rate 18 18 19 Blood Pressure 153/69 H 145/63 H 151/71 H Pulse Oximetry 99 99 99 02/24/18 01:25 02/24/18 01:38 02/24/18 02:14 Temperature 98.4 F Pulse Rate 62 61 69 Respiratory Rate 19 Blood Pressure 155/67 H Pulse Oximetry 98 02/24/18 03:45 02/24/18 04:35 02/24/18 05:02 Temperature 98.0 F 98.2 F Pulse Rate 64 68 75 Respiratory Rate 17 18 Blood Pressure 162/74 H Pulse Oximetry 94 L 02/24/18 05:07 02/24/18 05:14 02/24/18 05:25 Temperature 98.9 F 98.7 F Pulse Rate 70 70 Respiratory Rate 18 19 Blood Pressure 133/64 126/58 L 119/58 L Pulse Oximetry 100 02/24/18 05:48 02/24/18 06:00 02/24/18 07:00 Temperature 98.2 F Pulse Rate 62 68 65 Respiratory Rate 17 Blood Pressure 177/83 H Pulse Oximetry 02/24/18 08:00 02/24/18 09:00 02/24/18 10:00 Temperature Pulse Rate 64 78 70 Respiratory Rate Blood Pressure Pulse Oximetry 02/24/18 11:00 02/24/18 13:00 02/24/18 13:18 Temperature 98.4 F Pulse Rate 69 67 67 Respiratory Rate 12 Blood Pressure 135/67 Pulse Oximetry 99 02/24/18 13:30 02/24/18 13:45 02/24/18 13:55 Temperature 98.1 F Pulse Rate 67 67 67 Respiratory Rate 12 12 Blood Pressure 164/72 H 155/70 H Pulse Oximetry 02/24/18 15:00 Temperature 98.6 F Pulse Rate 72 Respiratory Rate 16 Blood Pressure 149/67 H Pulse Oximetry 99 Intake & Output 02/23/18 02/24/18 02/24/18 18:59 06:59 18:59 Intake Total 155 / 155 1120 / 1120 355 / 355 Output Total 2223 / 2223 2684 / 2684 428 / 428 Balance -2068 / -2068 -1564 / -1564 -73 / -73 Weight 80.3 kg Intake: IV 155 / 155 255 / 255 Sodium Phosphate Inj 15 MMOL In 155 / 155 155 / 155 NS Inj 150 ML @ 40 mls/hr IV. SIG ONCE ONE Rx#:[id number] Ancef Inj 1,000 MG In NS Inj 100 / 100 100 ML @ 100 mls/hr IV.SIG ONCE ONE Rx#:[id number] Oral 720 / 720 Anesthesia Amount 100 / 100 Intake (Blood Product) Amt 400 / 400 Rbc As-3 Leukoreduced Unit 0 / 0 [id number] Rbc As-3 Leukoreduced Unit 400 / 400 [id number] Output: Estimated Blood Loss 20 / 20 Urine Amount (Catheter) 222 / 2223 2684 / 2684 408 / 408 3-way Urethral 222 / 2223 2684 / 2684 408 / 408 Other: Bladder Irrigation Fluid - Amount Instilled 3-way Urethral 208 224 221 Bladder Irrigation Fluid - Amount Drained 3-way Urethral 350 750 275 Date of Last Bowel Movement 02/23/18 - Constitutional mild distress Comments: due to bladder discomfort at time of eval - Routine HEENT Exam Head: Present: normocephalic, atraumatic Eye: Present: EOMI ENT: Present: mucous membranes moist - Routine Respiratory Exam Present: CTA bilaterally - Routine Cardiovascular Exam Present: RRR, S1, S2 - Routine Abdominal Exam Present: soft, normoactive bowel sounds Comments: minimal suprapubic tenderness. No rebound/ guarding. Wound clean, intact, without signs of infection. - Routine Exam Comments: arellano with hematuria (some clots) - Routine Extremities Exam Present: pulses intact Comments: calves soft NT bilaterally. No peripheral edema - Routine Skin Exam Present: intact - Routine Neurological Exam Present: alert, oriented X3, CN II-XII intact - Routine Psychiatric Exam Present: normal affect, normal thought process - Urinary Catheter Management 3-way Urethral Cath placed during this visit: yes, but has since been removed by the nurse Urethral indwelling: Yes Reason for continuing: Gross Hematuria Insertion date: 02/17/18 Insertion time: 17:45 Removal date: 02/17/18 Removal time: 17:30 Results - Labs CBC & Chem 7: 02/24/18 05:03 02/24/18 05:03 Laboratory Results - last 24 hr 02/23/18 02/23/18 02/23/18 16:10 16:25 19:07 WBC RBC Hgb 7.1 L Hct 20.2 L* MCV MCH MCHC RDW Plt Count MPV Neut % (Auto) Lymph % (Auto) [place] % (Auto) Eos % (Auto) Baso % (Auto) Neut # (Auto) Lymph # (Auto) [place] # (Auto) Eos # (Auto) Baso # (Auto) WBC Differential Differential Comment Sodium Potassium Chloride Carbon Dioxide Anion Gap BUN Creatinine Estimated GFR POC Glucose 261 H Random Glucose Calcium Phosphorus Magnesium Tacrolimus Blood Type O Negative Antibody Screen Negative MTS Gel Crossmatch Bld Prod Order Comment 02/23/18 02/23/18 02/24/18 20:15 23:01 00:36 WBC RBC Hgb 7.2 L Hct 20.7 L* MCV MCH MCHC RDW Plt Count MPV Neut % (Auto) Lymph % (Auto) [place] % (Auto) Eos % (Auto) Baso % (Auto) Neut # (Auto) Lymph # (Auto) [place] # (Auto) Eos # (Auto) Baso # (Auto) WBC Differential Differential Comment Sodium Potassium Chloride Carbon Dioxide Anion Gap BUN Creatinine Estimated GFR POC Glucose 246 H Random Glucose Calcium Phosphorus Magnesium Tacrolimus Blood Type Antibody Screen MTS Gel Crossmatch See Detail Bld Prod Order Comment 02/24/18 02/24/18 02/24/18 05:03 05:03 05:03 WBC 5.1 D RBC 2.94 L Hgb 9.5 L D Hct 27.2 L MCV 92.4 MCH 32.2 MCHC 34.9 RDW 13.5 Plt Count 125 L MPV 7.5 Neut % (Auto) 88.1 H Lymph % (Auto) 3.7 L [place] % (Auto) 7.2 Eos % (Auto) 0.8 Baso % (Auto) 0.2 Neut # (Auto) 4.5 Lymph # (Auto) 0.2 L [place] # (Auto) 0.4 Eos # (Auto) 0.0 Baso # (Auto) 0.0 WBC Differential . Differential Comment Auto diff final Sodium 144 Potassium 3.7 Chloride 109 H Carbon Dioxide 25.9 Anion Gap 9 BUN 22 H Creatinine 1.19 Estimated GFR 59 L POC Glucose Random Glucose 102 Calcium 8.3 L Phosphorus 2.2 L Magnesium 2.0 Tacrolimus 9.9 Blood Type Antibody Screen MTS Gel Crossmatch Bld Prod Order Comment 02/24/18 08:26 WBC RBC Hgb Hct MCV MCH MCHC RDW Plt Count MPV Neut % (Auto) Lymph % (Auto) [place] % (Auto) Eos % (Auto) Baso % (Auto) Neut # (Auto) Lymph # (Auto) [place] # (Auto) Eos # (Auto) Baso # (Auto) WBC Differential Differential Comment Sodium Potassium Chloride Carbon Dioxide Anion Gap BUN Creatinine Estimated GFR POC Glucose 146 H Random Glucose Calcium Phosphorus Magnesium Tacrolimus Blood Type Antibody Screen MTS Gel Crossmatch Bld Prod Order Comment Assessment and Plan - Assessment (1) HTN (hypertension) Code(s): I10 - Essential (primary) hypertension Status: Acute - Plan Post op Day: 4 Patient: Mr Matthews is status post DDKT for ESRD secondary to DM/HTN US x 2 postop, shows patent vessels. There is also a "clot" noted in the bladder Prophylaxis: Decubitus ulcer: patient awake, alert, and mobile CMV prophylaxis: ont valcyte PCP prophylaxis: on bactrim Consults: Transplant Nephrology Urologist Assessment and Plan: S/P DDKT to right iliac fossa. Allograft function: Creatinine normal- aptient taken to OR today by urology (I was present). 2 areas of bleeding noted, along with some raw malika.hemostasis obtained--no arellano left due to concern for further irritation. will plan to monitor bladder scans and place arellano if warranted -urology's assistance is appreciated. Abd soft, approp tender. Continue insulin sliding scale. Daily standing weight. B SCDs. On flomax. Oral analgesic prn. Immunosuppression: Thymo induction; Maint: steroids + Cellcept 750 mg BID + prograf 5 mg bid
[2018-02-24] MEDS: Insulin Detemir Inj 1,000 UNIT/10 ML Vial SQ SCH (22:30)
[2018-02-25 06:18] LABS: Baso % (Auto) 0.8 % (0.0-2.0); Eos # (Auto) 0.1 th/mm3 (0.0-0.4); Eos % (Auto) 1.4 % (0.0-4.0); Hematocrit 25.2 % (39.0-51.0); Hemoglobin 8.7 gm/dL (13.0-17.0); Lymph # (Auto) 0.2 th/mm3 (1.0-4.8); Lymph % (Auto) 4.5 % (9.0-44.0); Mean Corpuscular HGB Conc 34.5 % (32.0-36.0); Mean Corpuscular Hemoglobin 31.3 pg (27.0-34.0); Mean Corpuscular Volume 90.7 fL (80.0-100.0); Mean Platelet Volume 7.5 fL (7.0-11.0); Mono # (Auto) 0.4 th/mm3 (0.0-0.9); Mono % (Auto) 9.4 % (0.0-8.0); Neut # (Auto) 3.3 th/mm3 (1.8-7.7); Neut % (Auto) 83.9 % (16.0-70.0); Platelet Count 116 th/mm3 (150-450); Red Blood Count 2.78 mil/mm3 (4.50-5.90); Red Cell Distribution Width 14.1 % (11.6-17.2); White Blood Count 3.9 th/mm3 (4.0-11.0)
[2018-02-25 06:40] LABS: Carbon Dioxide 26.3 meq/L (21.0-32.0); Magnesium 1.8 mg/dL (1.5-2.5); Potassium 3.9 meq/L (3.5-5.1)
--- NOTE | 2018-02-25 09:03 | P.PNTS ---
Subjective Interval history: No new c/o. No pain issues overnight. No clots or hematuria overnight. Physical Exam Vital signs: Vital Signs 02/24/18 09:00 02/24/18 10:00 02/24/18 11:00 Temperature Pulse Rate 78 70 69 Respiratory Rate Blood Pressure Pulse Oximetry 02/24/18 13:00 02/24/18 13:18 02/24/18 13:30 Temperature 98.4 F Pulse Rate 67 67 67 Respiratory Rate 12 12 Blood Pressure 135/67 164/72 H Pulse Oximetry 99 02/24/18 13:45 02/24/18 13:55 02/24/18 15:00 Temperature 98.1 F 98.6 F Pulse Rate 67 67 72 Respiratory Rate 12 16 Blood Pressure 155/70 H 149/67 H Pulse Oximetry 99 02/24/18 16:00 02/24/18 17:00 02/24/18 18:00 Temperature Pulse Rate 70 70 80 Respiratory Rate Blood Pressure Pulse Oximetry 02/24/18 19:00 02/24/18 20:00 02/24/18 21:00 Temperature 98.9 F Pulse Rate 76 76 76 Respiratory Rate 18 Blood Pressure 128/60 Pulse Oximetry 97 02/24/18 22:00 02/24/18 23:00 02/25/18 00:00 Temperature Pulse Rate 68 66 68 Respiratory Rate Blood Pressure Pulse Oximetry 02/25/18 00:03 02/25/18 01:00 02/25/18 02:00 Temperature 98.7 F Pulse Rate 67 68 63 Respiratory Rate 20 Blood Pressure 138/65 Pulse Oximetry 96 02/25/18 03:00 02/25/18 04:37 02/25/18 05:00 Temperature 98.5 F Pulse Rate 75 65 63 Respiratory Rate 20 Blood Pressure 157/74 H Pulse Oximetry 96 02/25/18 06:00 Temperature Pulse Rate 65 Respiratory Rate Blood Pressure Pulse Oximetry Intake & Output 02/24/18 02/25/18 02/25/18 18:59 06:59 18:59 Intake Total 1715 / 1715 100 / 100 420 / 420 Output Total 978 / 978 1425 / 1425 Balance 737 / 737 100 / 100 -1005 / -1005 Intake: IV 255 / 255 100 / 100 Sodium Phosphate Inj 15 MMOL In 155 / 155 NS Inj 150 ML @ 40 mls/hr IV. SIG ONCE ONE Rx#:[id number] Ancef Inj 1,000 MG In NS Inj 100 / 100 100 / 100 100 ML @ 200 mls/hr IV.SIG Q8H [facility] Rx#:[id number] Oral 960 / 960 420 / 420 Anesthesia Amount 100 / 100 Intake (Blood Product) Amt 400 / 400 Rbc As-3 Leukoreduced Unit 400 / 400 [id number] Output: Urine 550 / 550 1425 / 1425 Estimated Blood Loss 20 / 20 Urine Amount (Catheter) 408 / 408 3-way Urethral 408 / 408 Other: Bladder Irrigation Fluid - Amount Instilled 3-way Urethral 221 Bladder Irrigation Fluid - Amount Drained 3-way Urethral 275 - Constitutional no acute distress - Routine HEENT Exam Head: Present: normocephalic, atraumatic Eye: Present: EOMI ENT: Present: mucous membranes moist - Routine Neck Exam Present: supple - Routine Respiratory Exam Present: CTA bilaterally - Routine Cardiovascular Exam Present: RRR, S1, S2 - Routine Abdominal Exam Present: soft, normoactive bowel sounds Comments: Abd soft NT . Wound CDI without EFT. - Routine Extremities Exam Present: pulses intact Comments: Calves soft NT B. No peripheral edema. - Routine Skin Exam Present: intact - Routine Neurological Exam Present: alert, oriented X3 - Detailed Neurological Exam: Coma Scale Verbal Response: Oriented - Routine Psychiatric Exam Present: normal affect, normal thought process - Urinary Catheter Management 3-way Urethral Cath placed during this visit: yes, but has since been removed by the nurse Urethral indwelling: Yes Reason for continuing: Gross Hematuria Insertion date: 02/17/18 Insertion time: 17:45 Removal date: 02/17/18 Removal time: 17:30 Results - Labs CBC & Chem 7: 02/25/18 06:07 02/25/18 06:07 Laboratory Results - last 24 hr 02/24/18 02/24/18 02/24/18 00:36 05:03 16:36 WBC RBC Hgb Hct MCV MCH MCHC RDW Plt Count MPV Neut % (Auto) Lymph % (Auto) [place] % (Auto) Eos % (Auto) Baso % (Auto) Neut # (Auto) Lymph # (Auto) [place] # (Auto) Eos # (Auto) Baso # (Auto) WBC Differential Differential Comment Sodium Potassium Chloride Carbon Dioxide Anion Gap BUN Creatinine Estimated GFR POC Glucose 246 H Random Glucose Calcium Phosphorus Magnesium Tacrolimus 9.9 MTS Gel Crossmatch See Detail 02/24/18 02/25/18 02/25/18 22:27 06:07 06:07 WBC 3.9 L RBC 2.78 L Hgb 8.7 L Hct 25.2 L MCV 90.7 MCH 31.3 MCHC 34.5 RDW 14.1 Plt Count 116 L MPV 7.5 Neut % (Auto) 83.9 H Lymph % (Auto) 4.5 L [place] % (Auto) 9.4 H Eos % (Auto) 1.4 Baso % (Auto) 0.8 Neut # (Auto) 3.3 Lymph # (Auto) 0.2 L [place] # (Auto) 0.4 Eos # (Auto) 0.1 Baso # (Auto) 0.0 WBC Differential . Differential Comment Auto diff final Sodium 143 Potassium 3.9 Chloride 110 H Carbon Dioxide 26.3 Anion Gap 7 BUN 24 H Creatinine 1.11 Estimated GFR 64 L POC Glucose 297 H Random Glucose 102 Calcium 8.0 L Phosphorus 2.0 L Magnesium 1.8 Tacrolimus MTS Gel Crossmatch Assessment and Plan - Assessment (1) HTN (hypertension) Code(s): I10 - Essential (primary) hypertension Status: Acute - Plan Post op Day: 4 Patient: Mr Matthews is status post DDKT for ESRD secondary to DM/HTN US x 2 postop, shows patent vessels. There is also a "clot" noted in the bladder Prophylaxis: Decubitus ulcer: patient awake, alert, and mobile CMV prophylaxis: ont valcyte PCP prophylaxis: on bactrim Consults: Transplant Nephrology Urologist Assessment and Plan: S/P DDKT to right iliac fossa. Allograft function: Good graft function. No elevated bladder residuals, hematuria, or clots overnight -urology's assistance is appreciated. Abd soft, approp tender. Continue insulin sliding scale. Daily standing weight. B SCDs. On flomax. Oral analgesic prn. Home today. Immunosuppression: Thymo induction; Maint: steroids + Cellcept 750 mg BID + prograf 5 mg bid
[2018-02-25] MEDS: Nystatin Liq 500,000 UNIT/5 ML UDC SWISH-SWAL SCH ×2 (09:24→12:56)
[2018-02-25] MEDS: amLODIPine 5 MG Tablet PO SCH (09:25)
[2018-02-25] MEDS: Carvedilol 12.5 MG Tablet PO SCH (09:25)
[2018-02-25] MEDS: predniSONE 20 MG Tablet PO SCH (09:25)
[2018-02-25] MEDS: Insulin NovoLOG Aspart Correctional Sugar Inj SQ SCH ×2 (09:26→12:56)
[2018-02-25] MEDS: Potassium Phos/Sodium Phos 250 MG Tablet PO SCH (09:26)
[2018-02-25] MEDS ORDERED: Sodium Phosphate Inj 15 MMOL in Sodium Chlor 0.9% Inj 150 ML IV.SIG ONE (10:00)
--- NOTE | 2018-02-25 15:11 | P.PNNP ---
Subjective Interval history: Patient seen in AM, alert, no SOB, passing urine, no gross hematuria. Physical Exam Vital signs: Vital Signs 02/24/18 16:00 02/24/18 17:00 02/24/18 18:00 Temperature Pulse Rate 70 70 80 Respiratory Rate Blood Pressure Pulse Oximetry 02/24/18 19:00 02/24/18 20:00 02/24/18 21:00 Temperature 98.9 F Pulse Rate 76 76 76 Respiratory Rate 18 Blood Pressure 128/60 Pulse Oximetry 97 02/24/18 22:00 02/24/18 23:00 02/25/18 00:00 Temperature Pulse Rate 68 66 68 Respiratory Rate Blood Pressure Pulse Oximetry 02/25/18 00:03 02/25/18 01:00 02/25/18 02:00 Temperature 98.7 F Pulse Rate 67 68 63 Respiratory Rate 20 Blood Pressure 138/65 Pulse Oximetry 96 02/25/18 03:00 02/25/18 04:37 02/25/18 05:00 Temperature 98.5 F Pulse Rate 75 65 63 Respiratory Rate 20 Blood Pressure 157/74 H Pulse Oximetry 96 02/25/18 06:00 02/25/18 07:00 02/25/18 08:00 Temperature 98.7 F Pulse Rate 65 62 74 Respiratory Rate 18 Blood Pressure 148/65 H Pulse Oximetry 98 02/25/18 09:00 02/25/18 10:00 02/25/18 11:00 Temperature 98.6 F Pulse Rate 72 70 65 Respiratory Rate 18 Blood Pressure 156/67 H Pulse Oximetry 98 02/25/18 12:00 02/25/18 13:00 02/25/18 14:00 Temperature Pulse Rate 66 68 70 Respiratory Rate Blood Pressure Pulse Oximetry Intake & Output 02/24/18 02/25/18 02/25/18 18:59 06:59 18:59 Intake Total 1715 / 1715 100 / 100 420 / 420 Output Total 978 / 978 1425 / 1425 Balance 737 / 737 100 / 100 -1005 / -1005 Intake: IV 255 / 255 100 / 100 Sodium Phosphate Inj 15 MMOL In 155 / 155 NS Inj 150 ML @ 40 mls/hr IV. SIG ONCE ONE Rx#:[id number] Ancef Inj 1,000 MG In NS Inj 100 / 100 100 / 100 100 ML @ 200 mls/hr IV.SIG Q8H [facility] Rx#:[id number] Oral 960 / 960 420 / 420 Anesthesia Amount 100 / 100 Intake (Blood Product) Amt 400 / 400 Rbc As-3 Leukoreduced Unit 400 / 400 [id number] Output: Urine 550 / 550 1425 / 1425 Estimated Blood Loss 20 / 20 Urine Amount (Catheter) 408 / 408 3-way Urethral 408 / 408 Other: Bladder Irrigation Fluid - Amount Instilled 3-way Urethral 221 Bladder Irrigation Fluid - Amount Drained 3-way Urethral 275 Narrative: Subjective: GENERAL: Alert, Oriented x 3, NAD SKIN: Warm and dry. HEAD: Normocephalic. EYES: No scleral icterus. No injection or drainage. NECK: Supple, trachea midline. No JVD or lymphadenopathy. CARDIOVASCULAR: Regular rate and rhythm without murmurs, gallops, or rubs. RESPIRATORY: Breath sounds equal bilaterally. No accessory muscle use. Genito cortical problems appears stable at this time continue medications hypertension controlled at this time monitor restart home medications for patient has creatinine is high hold losartan continue metoprolol 25 mg twice daily: Vargas with bloody urine GASTROINTESTINAL: Abdomen soft, non-tender, nondistended. MUSCULOSKELETAL: No cyanosis, or edema. BACK: Nontender without obvious deformity. No CVA tenderness. - Urinary Catheter Management 3-way Urethral Cath placed during this visit: yes, but has since been removed by the nurse Urethral indwelling: Yes Reason for continuing: Gross Hematuria Insertion date: 02/17/18 Insertion time: 17:45 Removal date: 02/17/18 Removal time: 17:30 Assessment and Plan - Plan 77-year-old male with a past medical history of hypertension, diabetes mellitus, end-stage renal disease on hemodialysis for the last 1 year, history of adrenal hyperplasia, hyperparathyroidism. The patient has been on hemodialysis for 1 year, has been following with Dr. Corbin and according to the patient, he was told that his kidneys are failing because of the diabetes.The patient was called for cadaveric transplant. 1. Post-cadaveric renal transplant. 2. Hypertension. 3. Diabetes mellitus. 4. Anemia and thrombocytopenia. 5. Hypocalcemia and history of hyperparathyroidism. The patient has cadaveric renal transplant done on 02/18/18. Creatinine improving with good UOP Hematuria is improving, now off CBI,On Flomax Ongoing HTN on Norvasc 5mg daily, BP is better. Hgb. is better after transfusion. Now on Prograf, level is 8.8, on 5 mg BID. Creatinine continue to improve. Urology following , post cystoscopy, Vargas's catheter was removed. No Gross Hematuria For discharge today. To follow with Dr. Estrella on Wednesday in Transplant clinic.
--- NOTE | 2018-03-01 17:16 | P.DS ---
Date of admission: 02/17/18 00:24 Primary care physician: Randolph Renee MD Brief History from admission: Mr. Matthews is a pleasant 77 year old male with a history of hypertension, diabetes mellitus and ESRD on MWF HD who flew back to [place] renal transplant surgery. He was vacationing in [facility] and received a call during his dialysis that a match was found. He subsequently drove to [place], [place] and took a flight back to [place]. At the time of this interview, patient reports no chest pain, shortness of breath, fever, chills. No cough, abdominal pain. No changes in bowel or bladder habits. He remains in good spirit. DS: Diagnosis - Discharge Diagnosis (1) ESRD (end stage renal disease) Status: Acute (2) HTN (hypertension) Status: Acute (3) Diabetes mellitus Status: Chronic DS: Medications - Discharge Medications Prescriptions: amlodipine [Norvasc] 10 mg PO DAILY #30 tab insulin aspart U-100 [Novolog Flexpen U-100 Insulin] See Protocol SUB-Q ACHS CORRECT SUGARS #7 pen insulin detemir U-100 [Levemir FlexTouch U-100 Insuln] 5 unit SUB-Q QPM #7 pen oxycodone-acetaminophen 1 tab PO Q6H PRN 7 Days #20 tab PRN Reason: Abdominal Pain pen needle, diabetic [BD Ultra-Fine Dariana Pen Needle] #10 each sod phos di, mono-K phos mono [H-Jcdp-Lnxtspn] 500 mg PO BID #60 tab tamsulosin 0.4 mg PO DAILY #30 cap DS: Summary Hospital Course: Mr. Matthews is a pleasant 77 year old male with a history of DM, HTN, ESRD on MWF hemodialysis who took a flight to come back to [place] after he was informed for matched kidney for transplant. At the time of this interview, he is hemodynamically stable and remains in good spirit. Hematuria. Consult urology. Seen by Dr. Mccormick and patient had a artery irrigation. Amicar CBI to clear urine. Continue flomax S/P Cystoscopy with evacuation of clot and fulguration of bleeding by Dr Mccormick on 02/24/18 End stage Renal disease -s/p renal transplant. Currently on Cellcept, Prograf. -Transplant surgery, Urology, Nephrology following. -continue Immunosuppression per renal transplant surgeon recommendations : Thymo induction; Maint: steroids + Cellcept 750 mg BID + prograf 5 mg bid - Discharge medications per Transplant surgeon. Diabetes mellitus - Controlled with lifestyle modifications. - Will keep him on sliding scale insulin. Goal BG 140-180 in the hospital. - Levemir 5 units QHS. Hypertension - Currently Carvedilol 25mg BID and Amlodipine 10mg Qday. - Time Spent with Patient Total time spent providing and/or coordinating discharge services: - Quality: VTE Deep Vein Thrombosis/Pulmonary Embolism Present on Admission: No Results Procedures completed during hospitalization: 02/24/2018 Cystoscopy with evacuation of clot and fulguration of bleeding 02/18/2018 kidney transplant with ureteroneocystostomy over 6 Fr dble J ureteral stent - Impressions ITS Impressions Abdomen X-Ray 02/17/18 00:00 CONCLUSION: Multiple surgical clips in the right lower quadrant. Double-J stent on the right side. Chest X-Ray 02/17/18 03:11 CONCLUSION: No acute intrathoracic disease. Renal Ultrasound 02/17/18 20:51 CONCLUSION: No change from earlier exam Discharge Plan - Discharge Disposition Patient Disposition: 01 Discharge Home - Discharge Condition Condition: Good - Discharge Order Discharge Orders: Discharge Order (Routine); Ordered 02/25/18 Ordered By: Arvind Rodriguez - Discharge Details Anticipated Discharge Date: 02/25/18 - Physicians Team Primary Care Provider: Randolph Renee Attending Provider: Patric Ellis Other Providers: tatiana Corbin Christophe C, MD ; Jewel Rodriguez MD ; Agapito Menchaca MD ; Wesley Mccormick DO - Rxs /Orders / Referrals /Forms Prescriptions: New amlodipine [Norvasc] 5 mg Tablet 10 mg PO DAILY Qty: 30 RF: 6 calcium carbonate 200 mg calcium (500 mg) Tablet,Chewable 500 mg CHEW BID@,16 Qty: 0 RF: 0 insulin aspart U-100 [Novolog Flexpen U-100 Insulin] 100 unit/mL Insulin Pen See Protocol SUB-Q ACHS CORRECT SUGARS Qty: 7 RF: 0 insulin detemir U-100 [Levemir FlexTouch U-100 Insuln] 100 unit/mL (3 mL) Insulin Pen 5 unit SUB-Q QPM Qty: 7 RF: 0 mycophenolate mofetil [CellCept] 500 mg Tablet 750 mg PO BID@0600,1800 RF: 0 nystatin 100,000 unit/mL Suspension 5 ml SWISH-SWAL QID RF: 0 oxycodone-acetaminophen 5-325 mg Tablet 1 tab PO Q6H PRN (Reason: Abdominal Pain) 7 Days Qty: 20 RF: 0 pantoprazole 40 mg Tablet,Delayed Release (Dr/Ec) 40 mg PO DAILY RF: 0 sod phos di, mono-K phos mono [M-Hcak-Jgkstro] 250 mg Tablet 500 mg PO BID Qty: 60 RF: 6 sulfamethoxazole-trimethoprim 800-160 mg Tablet 1 tab PO MOWEFR RF: 0 tacrolimus [Prograf] 5 mg Capsule 5 mg PO BID@0600,1800 RF: 0 tamsulosin 0.4 mg Capsule,Extended Release 24hr 0.4 mg PO DAILY Qty: 30 RF: 1 valganciclovir [Valcyte] 450 mg Tablet 450 mg PO DAILY RF: 0 (DME) pen needle, diabetic [BD Ultra-Fine Dariana Pen Needle] 32 gauge x 5/32" Needle Qty: 10 RF: 7 Continue carvedilol [Coreg] 25 mg Tablet 25 mg PO BID gabapentin 400 mg Capsule 400 mg PO TID Discontinued sevelamer carbonate [Renvela] 800 mg Tablet 800 mg PO QID Referrals: Randolph Renee MD [Primary Care Provider] - See Instructions - Discharge Instructions Additional Instructions: pt may shower, no tub baths, hot tubs or swimming pools for two weeks, or until doctor states otherwise Be aware of signs of infection (fever, chills, purulent drainage at incision site, excessive redness or swelling) Should any of these symptoms occur, contact your doctor immediately.
== END 2018-02-25 17:42 | disposition home or self-care (01) ==
LOC: HCVI 00:24 → HCPC 02-21 18:00
PROVIDERS: ADMIT Hospitalist; ATTEND Hospitalist